=== PATIENT | female | born 1970 | race Hispanic/Latino ===

== ENCOUNTER 2016-07-11 01:24 | Inpatient (IN) | payer MEDICAID ==
[2016-07-11 02:35] LABS: Basophils % (Auto) 0.4 % (0.0-1.8); Eosinophils % (Auto) 0.2 % (0.0-4.3); Hematocrit 43.9 % (30.3-42.9); Hemoglobin 14.7 gm/dl (10.1-14.3); Mean Corpuscular HGB Conc 33 % (30-34); Mean Corpuscular Hemoglobin 30 pg (28-32); Mean Corpuscular Volume 90 fl (79-97); Platelet Count 260 K/mm3 (140-440); Red Blood Count 4.89 M/mm3 (3.65-5.03); Red Cell Distribution Width 12.7 % (13.2-15.2); White Blood Count 14.6 K/mm3 (4.5-11.0)
[2016-07-11 02:48] LABS: INR 1.11 (0.87-1.13)
[2016-07-11 02:49] LABS: Blood Urea Nitrogen 12 mg/dL (7-17); Carbon Dioxide 23 mmol/L (22-30); Glucose 214 mg/dL (65-100); Partial Thromboplastin Time 29.2 Sec. (24.2-36.6); Potassium 4.4 mmol/L (3.6-5.0); Sodium 137 mmol/L (137-145)
[2016-07-11] MEDS ORDERED: MORPHINE IV ONE (02:52)
[2016-07-11] MEDS ORDERED: NACL 0.9% 1000 ML 1,000 ML IV ONE ×2 (02:52→04:08)
[2016-07-11] MEDS ORDERED: ZOFRAN IV ONE (02:52)
[2016-07-11 02:53] LABS: Anion Gap 24 mmol/L
--- NOTE | 2016-07-11 02:53 | Emergency Department Report ---
ED General Adult HPI - General Chief complaint: Chest Pain Stated complaint: LT ARM PAIN Time Seen by Provider: 07/11/16 02:38 Source: patient, RN notes reviewed, old records reviewed Mode of arrival: Ambulatory Limitations: No Limitations - History of Present Illness Initial comments: This is a 46-year-old female, previously unknown to me. Her reading instructor is Dr. Hector. Patient has an extensive past medical history, including heart disease, [place], PCI , diabetes, hypertension, pulmonary embolus, seizure, stroke, lupus. Patient recently admitted to the hospital for chest pain. As per cardiology note, "stable cardiac status. Okay to discharge home from a cardiovascular standpoint's on aspirin, Effient, Zocor, Toprol, losartan, Isordil, Ranexa." Patient reports that she was seen by her reading instructor yesterday. Patient's main complaint today is abdominal pain. It is epigastric, right upper quadrant, radiates to the back. She reports malaise and fatigue. To me she denies chest pain. She missed a low-grade temperature. She does admit to chronic left arm burning and discomfort, which has been present since her previous hospitalization. She has already discussed her left arm discomfort with her primary reading instructor , and her primary reading instructor is following an aware of it. She reports compliance with her medications. Abdominal pain is sharp. Increases with palpation, decreases with rest. She denies alcohol consumption. She denies fatty food ingestion. -: Gradual Location: abdomen Radiation: back Consistency: constant Improves with: rest Worsens with: movement Associated Symptoms: fever/chills, loss of appetite - Related Data Home Medications Medication Instructions Recorded Confirmed Last Taken ALBUTEROL Inhaler [ProAir HFA 2 puff IH QID PRN 03/27/16 07/11/16 03/27/16 Inhaler] Insulin Regular, Human [HumuLIN R] See Protocol SQ ACHS 03/27/16 07/11/16 Aspirin [Aspirin TAB] 81 mg PO QDAY 07/11/16 07/11/16 Unknown Previous Rx's Medication Instructions Recorded Last Taken Type Arformoterol Nebu [Brovana Nebu] 15 mcg IH BIDRT ml 03/28/16 Unknown Rx Budesonide [Pulmicort Respules] 1 mg IH BIDRT #14 nebu 03/28/16 Unknown Rx Fluticasone/Salmeterol [Advair 1 each IH QDAY #1 blst.w.dev 03/28/16 Unknown Rx Diskus 500-50 mcg] Insulin Glargine [Lantus VIAL] 80 unit SUB-Q QHS #30 units 03/28/16 Unknown Rx Ipratropium/Albuter (Nf) 2 puff IH QID #1 inha 03/28/16 Unknown Rx [Combivent Inhaler] Losartan [Cozaar] 50 mg PO QDAY #30 tablet 03/28/16 Unknown Rx Metformin HCl [Glucophage] 1,000 mg PO BID #60 tablet 03/28/16 Unknown Rx Metoprolol Xl [Metoprolol 75 mg PO QDAY #30 tablet 03/28/16 Unknown Rx SUCCINATE ER TAB] Montelukast [Singulair] 10 mg PO QPM tablet 03/28/16 Unknown Rx Pregabalin [Lyrica] 75 mg PO QDAY #30 capsule 03/28/16 Unknown Rx Sertraline [Zoloft] 50 mg PO QDAY #30 tablet 03/28/16 Unknown Rx oxyCODONE /ACETAMINOPHEN [Percocet 1 tab PO Q6H PRN #20 tablet 03/28/16 Unknown Rx 5/325 mg] Atorvastatin Calcium [Lipitor] 40 mg PO QHS #30 tab 07/03/16 Unknown Rx Prasugrel [Effient] 10 mg PO QDAY #30 tablet 07/03/16 Unknown Rx Ranolazine ER [Ranexa ER] 500 mg PO BID #60 tablet 07/03/16 Unknown Rx Allergies Allergy/AdvReac Type Severity Reaction Status Date / Time No Known Allergies Allergy Verified 02/17/16 13:53 ED Review of Systems ROS: Stated complaint: LT ARM PAIN Other details as noted in HPI Constitutional: chills, malaise Eyes: denies: vision change ENT: denies: epistaxis Respiratory: see HPI Cardiovascular: as per HPI Gastrointestinal: abdominal pain Genitourinary: as per HPI Musculoskeletal: as per HPI Skin: as per HPI. denies: lesions Neurological: weakness Psychiatric: anxiety ED Past Medical Hx - Past Medical History Hx Hypertension: Yes Hx CVA: Yes (TIA, stroke 2003) Hx Heart Attack/AMI: Yes (x4) Hx Congestive Heart Failure: No Hx Diabetes: Yes Hx Deep Vein Thrombosis: No Hx Pulmonary Embolism: Yes Hx Liver Disease: Yes (Liver mass (2012)) Hx Renal Disease: (ACUTE RENAL FAILURE) Hx Headaches / Migraines: No Hx Seizures: No Hx Kidney Stones: Yes Hx Asthma: Yes Hx COPD: No Hx Dementia: No Hx HIV: No Additional medical history: HIGH CHOLESTEROL , gullian escalante syndrome, lupus - Surgical History Hx Coronary Stent: Yes Additional Surgical History: RECONSTRUCTIVE BACK SUGERY X3, C SECTION, TUBAL LIGATION - Social History Smoking Status: Former Smoker Substance Use Type: None - Medications Home Medications: Home Medications Medication Instructions Recorded Confirmed Last Taken Type ALBUTEROL Inhaler [ProAir HFA 2 puff IH QID PRN 03/27/16 07/11/16 03/27/16 History Inhaler] Insulin Regular, Human [HumuLIN R] See Protocol SQ ACHS 03/27/16 07/11/16 History Arformoterol Nebu [Brovana Nebu] 15 mcg IH BIDRT ml 03/28/16 07/11/16 Unknown Rx Budesonide [Pulmicort Respules] 1 mg IH BIDRT #14 nebu 03/28/16 07/11/16 Unknown Rx Fluticasone/Salmeterol [Advair 1 each IH QDAY #1 blst.w.dev 03/28/16 07/11/16 Unknown Rx Diskus 500-50 mcg] Insulin Glargine [Lantus VIAL] 80 unit SUB-Q QHS #30 units 03/28/16 07/11/16 Unknown Rx Ipratropium/Albuter (Nf) 2 puff IH QID #1 inha 03/28/16 07/11/16 Unknown Rx [Combivent Inhaler] Losartan [Cozaar] 50 mg PO QDAY #30 tablet 03/28/16 07/11/16 Unknown Rx Metformin HCl [Glucophage] 1,000 mg PO BID #60 tablet 03/28/16 07/11/16 Unknown Rx Metoprolol Xl [Metoprolol 75 mg PO QDAY #30 tablet 03/28/16 07/11/16 Unknown Rx SUCCINATE ER TAB] Montelukast [Singulair] 10 mg PO QPM tablet 03/28/16 07/11/16 Unknown Rx Pregabalin [Lyrica] 75 mg PO QDAY #30 capsule 03/28/16 07/11/16 Unknown Rx Sertraline [Zoloft] 50 mg PO QDAY #30 tablet 03/28/16 07/11/16 Unknown Rx oxyCODONE /ACETAMINOPHEN [Percocet 1 tab PO Q6H PRN #20 tablet 03/28/16 Unknown Rx 5/325 mg] Atorvastatin Calcium [Lipitor] 40 mg PO QHS #30 tab 07/03/16 07/11/16 Unknown Rx Prasugrel [Effient] 10 mg PO QDAY #30 tablet 07/03/16 07/11/16 Unknown Rx Ranolazine ER [Ranexa ER] 500 mg PO BID #60 tablet 07/03/16 07/11/16 Unknown Rx Aspirin [Aspirin TAB] 81 mg PO QDAY 07/11/16 07/11/16 Unknown History ED Physical Exam - General Limitations: No Limitations General appearance: alert, in no apparent distress - Head Head exam: Present: atraumatic, normocephalic - Eye Eye exam: Present: normal appearance, EOMI. Absent: nystagmus - ENT ENT exam: Present: normal exam, normal orophraynx, mucous membranes moist - Neck Neck exam: Present: normal inspection, full ROM. Absent: tenderness, meningismus - Respiratory Respiratory exam: Present: normal lung sounds bilaterally. Absent: respiratory distress, wheezes, rales, rhonchi, stridor, chest wall tenderness - Cardiovascular Cardiovascular Exam: Present: regular rate, normal rhythm, normal heart sounds. Absent: bradycardia, tachycardia, irregular rhythm, systolic murmur, diastolic murmur, rubs, gallop - GI/Abdominal GI/Abdominal exam: Present: soft, tenderness, normal bowel sounds, other (upper quadrant tender, right flank tender, right lower quadrant tender. No rebound, guarding or peritoneal signs.). Absent: distended, guarding, rebound, rigid, pulsatile mass - Extremities Exam Extremities exam: Present: normal inspection, full ROM, normal capillary refill. Absent: tenderness, pedal edema, joint swelling, calf tenderness - Back Exam Back exam: Present: normal inspection, full ROM. Absent: tenderness, CVA tenderness (R), CVA tenderness (L), muscle spasm, paraspinal tenderness, vertebral tenderness - Neurological Exam Neurological exam: Present: alert, oriented X3, other (Extraocular movements intact. Tongue midline. No facial droop. Facial sensation intact to light touch in the V1, V2, V3 distribution bilaterally. 5 and 5 strength in 4 extremities.. Sensation is intact to light touch in 4 extremities.). Absent: motor sensory deficit - Psychiatric Psychiatric exam: Present: anxious - Skin Skin exam: Present: warm, dry, intact, normal color. Absent: rash ED Course Vital Signs 07/11/16 07/11/16 07/11/16 01:53 02:26 02:53 Temperature 99.0 F 99.6 F Pulse Rate 95 H 90 Respiratory 18 21 Rate Blood Pressure 139/89 O2 Sat by Pulse 97 Oximetry 07/11/16 07/11/16 07/11/16 03:00 04:05 05:00 Temperature Pulse Rate 88 93 H 88 Respiratory 21 15 18 Rate Blood Pressure 129/85 129/85 146/90 O2 Sat by Pulse 99 97 97 Oximetry - Reevaluation(s) Reevaluation #1: 07/11/16 03:17 Differential diagnosis: Pneumonia, urinary tract infection, pyelonephritis, intra-abdominal abscess, pulmonary embolus Assessment and plan: 46-year-old female with low-grade temperature, leukocytosis , right-sided abdominal pain and tenderness. Patient reports being catheterized to the right groin. I my direct inspection of the right groin site, did not appear to be any redness, pus, streaking or cellulitis. There is no obvious hematoma. During this portion of her physical exam, I am escorted by nurse Kriss Woody. Patient will be treated symptomatically. Has a low-grade temperature rectally to 99.6. CAT scan of the chest, abdomen/pelvis is pending. I do not think that her symptoms are related to acute coronary syndrome. Her left arm burning is chronic, and she was seen by her reading instructor yesterday for this. We will reassess once her CAT scan has resulted. Reevaluation #2: 07/11/16 05:49 CAT scan of the chest was negative for pulmonary embolus. CAT scan of the abdomen and pelvis suggested pyelonephritis without abscess. Given patient's tenderness, leukocytosis, elevated lactic acid level, medical comorbidities, she will be admitted for pain control, IV antibiotics. The case is discussed with Hospital physician, Dr. Longo, who accepts the patient to his service. ED Medical Decision Making - Lab Data Result diagrams: 07/11/16 02:13 07/11/16 02:13 Vital Signs 07/11/16 07/11/16 01:53 02:53 Temperature 99.0 F 99.6 F Pulse Rate 95 H Respiratory 18 Rate Blood Pressure 139/89 O2 Sat by Pulse 97 Oximetry Lab Results 07/11/16 07/11/16 07/11/16 Range/Units 02:13 02:13 02:13 WBC 14.6 H (4.5-11.0) K/mm3 RBC 4.89 (3.65-5.03) M/mm3 Hgb 14.7 H (10.1-14.3) gm/dl Hct 43.9 H (30.3-42.9) % MCV 90 (79-97) fl MCH 30 (28-32) pg MCHC 33 (30-34) % RDW 12.7 L (13.2-15.2) % Plt Count 260 (140-440) K/mm3 Lymph % (Auto) 11.3 L (13.4-35.0) % [place] % (Auto) 7.2 (0.0-7.3) % Eos % (Auto) 0.2 (0.0-4.3) % Baso % (Auto) 0.4 (0.0-1.8) % Lymph # 1.6 (1.2-5.4) K/mm3 [place] # 1.1 H (0.0-0.8) K/mm3 Eos # 0.0 (0.0-0.4) K/mm3 Baso # 0.1 (0.0-0.1) K/mm3 Seg Neutrophils % 80.9 H (40.0-70.0) % Seg Neutrophils # 11.8 H (1.8-7.7) K/mm3 PT 14.2 (12.2-14.9) Sec. INR 1.11 (0.87-1.13) APTT 29.2 (24.2-36.6) Sec. Sodium 137 (137-145) mmol/L Potassium 4.4 (3.6-5.0) mmol/L Chloride 94.0 L (98-107) mmol/L Carbon Dioxide 23 (22-30) mmol/L Anion Gap 24 mmol/L BUN 12 (7-17) mg/dL Creatinine 0.6 L (0.7-1.2) mg/dL Estimated GFR > 60 ml/min BUN/Creatinine Ratio 20.00 % Glucose 214 H (65-100) mg/dL Calcium 10.0 (8.4-10.2) mg/dL Troponin T < 0.010 (0.00-0.029) ng/mL - EKG Data 07/11/16 03:18 Normal sinus, 88 bpm, normal axis, normal intervals, borderline incomplete right bundle branch block, borderline ST depression in the lateral leads, T- wave inversions in the inferior leads, abnormal EKG, not morphologically consistent with STEMI, nonspecific changes appear to have taken place in the lateral leads compared to old EKG. - Radiology Data Radiology results: report reviewed, image reviewed Chest x-ray negative. CAT scan of the chest negative for pulmonary embolus. CAT scan of the abdomen and pelvis suggest pyelonephritis. Critical care attestation.: If time is entered above; I have spent that time in minutes in the direct care of this critically ill patient, excluding procedure time. ED Disposition Clinical Impression: Pyelonephritis Sepsis Qualifiers: Sepsis type: sepsis due to unspecified organism Qualified Code(s): A41.9 - Sepsis, unspecified organism Disposition: OP ADMITTED IP TO THIS HOSP Is pt being admited?: Yes Does the pt Need Aspirin: Yes Condition: Good
[2016-07-11] MEDS ORDERED: NACL ONE (03:08)
[2016-07-11 03:45] LABS: Alanine Aminotransferase 14 units/L (7-56); Albumin 4.3 g/dL (3.9-5); Albumin/Globulin Ratio 1.3 %; Alkaline Phosphatase 66 units/L (35-129); Bilirubin,Total 0.9 mg/dL (0.1-1.2); Lipase 18 units/L (13-60); Total Protein 7.6 g/dL (6.3-8.2)
[2016-07-11 03:51] LABS: Bacteria,Urine 2+ /HPF (Negative); Bilirubin,Urine NEG (Negative); Blood,Urine MOD (Negative); Ketones,Urine NEG (Negative); Leukocyte Esterase,Urine LG (Negative); Mucus,Urine FEW /HPF; Nitrite,Urine NEG (Negative); Urobilinogen,Urine < 2.0 mg/dL (<2.0)
[2016-07-11 03:52] LABS: Bilirubin,Direct < 0.2 mg/dL (0-0.2); Bilirubin,Indirect 0.7 mg/dL; WBC,Urine > 182.0 /HPF (0.0-6.0)
--- NOTE | 2016-07-11 04:02 | XRay Report ---
FINAL REPORT EXAM: CT ANGIO CHEST HISTORY: ruq pain low grade temp COMPARISON: CT of the chest February 2012. TECHNIQUE: Contiguous axial images were obtained. Additional sagittal and coronal reformatted images were obtained. Administration of IV contrast given per institution protocol. Images submitted for interpretation. 100 cc Omnipaque 350. Max intensity projection images obtained. FINDINGS: Heart normal in size. Moderate coronary artery calcifications. Thoracic aorta normal in caliber. No dissection. No pulmonary embolus. No pathologically enlarged intrathoracic or axillary lymph nodes. Mild atelectasis at the lung bases. No dense consolidation or pleural effusion. Tracheobronchial tree is patent. Stable right hepatic lobe hemangioma measuring 3.3 x 3.3 centimeters. Mild degenerative changes of the thoracic spine. IMPRESSION: No pulmonary embolus. No focal consolidation or pleural effusion. Stable hemangioma at the right hepatic dome.
[2016-07-11] MEDS ORDERED: ROCEPHIN/NS 1 GM/50 ML 50 ML IV ONE (04:08)
--- NOTE | 2016-07-11 05:21 | Cat Scan Report ---
FINAL REPORT PROCEDURE: CT ABDOMEN PELVIS W CON TECHNIQUE: Computerized axial tomography of the abdomen and pelvis was performed after the IV injection of iodinated nonionic contrast. Oral contrast was not given HISTORY: Right upper quadrant abdominal pain with low grade temp COMPARISON: Prior abdomen and pelvic CT scan of March 09 2012 FINDINGS: Visualized lower thorax: There is mild atelectasis in both lung bases.. Liver: There is a 3.5 centimeter hypodense lesion in the upper right lobe of the liver. This has peripheral nodular enhancement and almost fills in completely on the delayed images. Therefore this is most likely a cavernous hemangioma. It also appears unchanged from the older scan March 09, 2012. There is a 2nd 0.8 centimeter densely enhancing small focus in the anterior left lobe of the liver. This also fills in on delayed imaging and is most likely 2nd small hemangioma. I believe this was also present previously. Spleen: Heterogenous appearance on initial phase only is likely due to contrast flux. Gallbladder and biliary system: Normal. Pancreas: Normal. Adrenals: Normal. Kidneys: There is a 3.0 centimeter cyst in the left kidney similar to prior exam. The wall of both the left and right renal pelvis in the wall of both ureters demonstrate very mild enhancement. This is nonspecific and could be within range of normal variation but could also be related to the findings in the bladder described below. GI tract: The bowel appears unremarkable. The appendix is seen and appears normal.. Lymph nodes and mesentery: Normal. Vasculature: Normal. Bladder: On the initial phase only there is apparent mild urinary bladder wall thickening seen diffusely throughout and mild wall enhancement. This is nonspecific but could indicate a mild cystitis.. Reproductive organs: The uterus shows heterogenous enhancement of uncertain significance. It appears more homogeneous on delayed imaging although it is not completely seen on the delayed scan. Peritoneum: No free fluid. Musculoskeletal structures: Surgically placed metallic hardware in lower lumbar spine from L3-S1 appears similar to prior exam. Other: None. IMPRESSION: 1. There is mild diffuse urinary bladder wall thickening which shows mild enhancement. This is nonspecific but could indicate a mild cystitis. 2. Mild wall enhancement of the mid and upper ureters and mild wall enhancement of the left and right renal pelvis. This can sometimes be seen as a normal variant. However if the patient does have cystitis or UTI this could also be related to that. 3. Left renal cyst, unchanged. 4. There is a 3.5 centimeter cavernous hemangioma in the right liver, unchanged from prior exam. There is a probable 2nd small 0.8 centimeter hemangioma in the left liver, also unchanged. 5. Surgically placed metallic hardware in lower lumbar spine. 6. Chest CT scan performed at same time as this study is dictated separately.
--- NOTE | 2016-07-11 05:23 | History and Physical Report ---
History of Present Illness History of present illness: 46 YO Female with HTN, CVA,DM,PE, Asthma, HLD, Lupus, GBS, CAD S/P Stent Placement, presents to ED for evaluation. Pt states that she has been experiencing abdominal pain for the past for the past 1 day with persistent symptoms over that time. Pt states that pain is 4/10, epigastric, radiating to back. She reports malaise and fatigue. Pt denies fever, chills, CP, Palpitations, NVD, or recent ill contacts. Past History Past Medical History: CAD, diabetes, hypertension, other (lupus,GBS,asthma) Past Surgical History: , Other (back surgery, tubal ligation) Social history: single, lives with family. denies: smoking, alcohol abuse, prescription drug abuse Family history: hypertension Medications and Allergies Allergies Allergy/AdvReac Type Severity Reaction Status Date / Time No Known Allergies Allergy Verified 02/17/16 13:53 Home Medications Medication Instructions Recorded Confirmed Last Taken Type ALBUTEROL Inhaler [ProAir HFA 2 puff IH QID PRN 03/27/16 07/11/16 03/27/16 History Inhaler] Insulin Regular, Human [HumuLIN R] See Protocol SQ ACHS 03/27/16 07/11/16 History Arformoterol Nebu [Brovana Nebu] 15 mcg IH BIDRT ml 03/28/16 07/11/16 Unknown Rx Budesonide [Pulmicort Respules] 1 mg IH BIDRT #14 nebu 03/28/16 07/11/16 Unknown Rx Fluticasone/Salmeterol [Advair 1 each IH QDAY #1 blst.w.dev 03/28/16 07/11/16 Unknown Rx Diskus 500-50 mcg] Insulin Glargine [Lantus VIAL] 80 unit SUB-Q QHS #30 units 03/28/16 07/11/16 Unknown Rx Ipratropium/Albuter (Nf) 2 puff IH QID #1 inha 03/28/16 07/11/16 Unknown Rx [Combivent Inhaler] Losartan [Cozaar] 50 mg PO QDAY #30 tablet 03/28/16 07/11/16 Unknown Rx Metformin HCl [Glucophage] 1,000 mg PO BID #60 tablet 03/28/16 07/11/16 Unknown Rx Metoprolol Xl [Metoprolol 75 mg PO QDAY #30 tablet 03/28/16 07/11/16 Unknown Rx SUCCINATE ER TAB] Montelukast [Singulair] 10 mg PO QPM tablet 03/28/16 07/11/16 Unknown Rx Pregabalin [Lyrica] 75 mg PO QDAY #30 capsule 03/28/16 07/11/16 Unknown Rx Sertraline [Zoloft] 50 mg PO QDAY #30 tablet 03/28/16 07/11/16 Unknown Rx oxyCODONE /ACETAMINOPHEN [Percocet 1 tab PO Q6H PRN #20 tablet 03/28/16 Unknown Rx 5/325 mg] Atorvastatin Calcium [Lipitor] 40 mg PO QHS #30 tab 07/03/16 07/11/16 Unknown Rx Prasugrel [Effient] 10 mg PO QDAY #30 tablet 07/03/16 07/11/16 Unknown Rx Ranolazine ER [Ranexa ER] 500 mg PO BID #60 tablet 07/03/16 07/11/16 Unknown Rx Aspirin [Aspirin TAB] 81 mg PO QDAY 07/11/16 07/11/16 Unknown History Review of Systems All systems: negative Gastrointestinal: abdominal pain Exam - Constitutional Vitals: Temp Pulse Resp BP Pulse Ox 99.6 F 88 18 146/90 97 07/11/16 02:53 07/11/16 05:00 07/11/16 05:00 07/11/16 05:00 07/11/16 05:00 General appearance: Present: no acute distress, well-nourished - EENT Eyes: Present: PERRL ENT: hearing intact, clear oral mucosa - Neck Neck: Present: supple, normal ROM - Respiratory Respiratory effort: normal Respiratory: bilateral: CTA - Cardiovascular Heart Sounds: Present: S1 & S2. Absent: rub, click - Extremities Extremities: pulses symmetrical, No edema Peripheral Pulses: within normal limits - Abdominal General gastrointestinal: Present: soft, non-tender, non-distended, normal bowel sounds Female genitourinary: Present: normal - Integumentary Integumentary: Present: clear, warm, dry - Musculoskeletal Musculoskeletal: gait normal, strength equal bilaterally - Psychiatric Psychiatric: appropriate mood/affect, intact judgment & insight - Neurologic Neurologic: CNII-XII intact, moves all extremities Results - Labs CBC & Chem 7: 07/11/16 02:13 07/11/16 02:13 Labs: Abnormal lab results 07/11/16 07/11/16 07/11/16 Range/Units 02:13 02:13 03:02 WBC 14.6 H (4.5-11.0) K/mm3 Hgb 14.7 H (10.1-14.3) gm/dl Hct 43.9 H (30.3-42.9) % RDW 12.7 L (13.2-15.2) % Lymph % (Auto) 11.3 L (13.4-35.0) % [place] # 1.1 H (0.0-0.8) K/mm3 Seg Neutrophils % 80.9 H (40.0-70.0) % Seg Neutrophils # 11.8 H (1.8-7.7) K/mm3 Chloride 94.0 L (98-107) mmol/L Creatinine 0.6 L (0.7-1.2) mg/dL Glucose 214 H (65-100) mg/dL Lactic Acid (0.7-2.0) mmol/L Urine WBC (Auto) > 182.0 H (0.0-6.0) /HPF 07/11/16 Range/Units 03:02 WBC (4.5-11.0) K/mm3 Hgb (10.1-14.3) gm/dl Hct (30.3-42.9) % RDW (13.2-15.2) % Lymph % (Auto) (13.4-35.0) % [place] # (0.0-0.8) K/mm3 Seg Neutrophils % (40.0-70.0) % Seg Neutrophils # (1.8-7.7) K/mm3 Chloride (98-107) mmol/L Creatinine (0.7-1.2) mg/dL Glucose (65-100) mg/dL Lactic Acid 3.6 H* (0.7-2.0) mmol/L Urine WBC (Auto) (0.0-6.0) /HPF Assessment and Plan - Patient Problems (1) CAD (coronary artery disease) Current Visit: No Status: Chronic Qualifiers: Coronary Disease-Associated Artery/Lesion type: [place] artery (2) Hypertension Current Visit: No Status: Chronic Qualifiers: Hypertension type: essential hypertension Qualified Code(s): I10 - Essential (primary) hypertension (3) Cystitis Current Visit: Yes Status: Acute Plan to address problem: IV abx, IVF, supportive care, pain control, (4) Abdominal pain Current Visit: Yes Status: Acute Plan to address problem: secondary to cystitis, continue current care. (5) Lupus Current Visit: Yes Status: Chronic Plan to address problem: No active disease at this time. (6) DVT prophylaxis Current Visit: No Status: Acute
[2016-07-11] MEDS ORDERED: MILK OF MAGNESIA PO PRN (05:26)
[2016-07-11] MEDS ORDERED: DULCOLAX PR PRN (05:26)
[2016-07-11] MEDS ORDERED: ZOFRAN IV PRN (05:26)
[2016-07-11] MEDS: LEVAQUIN 500MG/100ML 100 ML IV SCH (06:08)
--- NOTE | 2016-07-11 06:25 | Admit Criteria Form ---
Admission Criteria Documentation: SEPSIS and OTHER FEBRILE ILLNESS, W/O FOCAL INFECTION Clinical Indications for Admission to Inpatient Care ( Place 'X' for any and all applicable criteria): Admission is indicated for ANY ONE of the following (1)(2)(3)(4): [ ] I. Bacteremia [X ]II. Suspected or identified specific infection requiring hospitalization (eg, meningitis, endocarditis) [ ]III. Hemodynamic instability [ ]IV. Altered mental status [ ]V. Failure or unavailability of outpatient antimicrobial treatment [ ]. Hypoxemia [ ]VII. Seizures [ ]VIII. High-risk febrile neutropenia [ ]IX. Need for parenteral antibiotic in patient who is likely to abuse vascular access device (eg, injection drug user) [A](7) [ ]X. Temperature greater than 104.9 degrees F (40.5 degrees C) (oral) [X ]XI. Inpatient admission required rather than observation care because of ANY ONE of the following: [X ]1) Specific infection identified that is too severe for outpatient treatment or observation care trial [ ]2) Metabolic disorder (eg, hypoglycemia, hyperglycemia, metabolic acidosis) that is severe or persistent [ ]3) Temperature greater than 103.1 degrees F (39.5 degrees C) ( oral) that is not responsive to observation care treatment [ ]4) IV fluid to replace significant ongoing (eg, for over 24 hours) losses (> 3 L/m2 per day) [ ]5) Supplemental oxygen or respiratory treatments for over 24 hours that is performable only in acute inpatient setting [ ]6) Parenteral nutrition regimen need that must be implemented on inpatient basis [ ]7) Strict or protective (eg, laminar flow) isolation [ ]8) Other condition, treatment or monitoring requiring inpatient admission Extended stay beyond goal length of stay may be needed for(1)(3) [ ]a) Sepsis or septic shock(22) [ ]b) Positive blood cultures [ ]c) Insufficient oral intake [ ]d) High-risk febrile neutropenia(29)(30) [ ]e) Continued fever and clinical instability [ ]f) Clinically active comorbid illness (e.g,heart failure, renal failure , diabetes) The original [facility] [employer] content created by Sarah Oshea has been revised. The portions of the content which have been revised are identified through the use of italic text or in bold, and [email or web address] has neither reviewed nor approved the modified material. All other unmodified content is copyright [facility]. Please see references footnoted in the original [facility] edition 2016 Admission Criteria Met: Yes
[2016-07-11] MEDS ORDERED: NORCO 5/325 PO ONE (07:01)
[2016-07-11] MEDS: BABY ASPIRIN PO SCH (11:46)
[2016-07-11] MEDS: TYLENOL PO PRN ×3 (12:10→22:43)
[2016-07-11] MEDS: EFFIENT PO SCH (18:49)
[2016-07-11] MEDS: SINGULAIR PO SCH (20:00)
[2016-07-11] MEDS ORDERED: INSULIN GLARGINE 80 UNIT SUB-Q SCH (22:00)
[2016-07-11] MEDS: BROVANA NEBU IH SCH (22:27)
[2016-07-11] MEDS: PULMICORT IH SCH (22:27)
[2016-07-11] MEDS: LEVEMIR SUB-Q SCH (22:45)
[2016-07-11] MEDS: RANEXA ER PO SCH (22:45)
[2016-07-12] MEDS: BROVANA NEBU IH SCH ×2 (08:29→19:41)
[2016-07-12] MEDS: PULMICORT IH SCH ×2 (08:29→19:41)
[2016-07-12] MEDS ORDERED: SALMETEROL IH SCH (10:00)
[2016-07-12] MEDS ORDERED: EFFIENT PO SCH (10:00)
[2016-07-12] MEDS ORDERED: FLUTICASONE IH SCH (10:00)
[2016-07-12] MEDS: LYRICA PO SCH (10:32)
[2016-07-12] MEDS: RANEXA ER PO SCH ×2 (10:32→21:15)
[2016-07-12] MEDS: BABY ASPIRIN PO SCH (10:33)
[2016-07-12] MEDS: LEVAQUIN 500MG/100ML 100 ML IV SCH (10:33)
[2016-07-12] MEDS: ZOLOFT PO SCH (10:33)
[2016-07-12] MEDS: EFFIENT PO SCH (11:08)
[2016-07-12] MEDS: COZAAR PO SCH (11:08)
[2016-07-12] MEDS: TOPROL XL PO SCH (11:33)
[2016-07-12] MEDS: TYLENOL PO PRN (16:58)
[2016-07-12] MEDS: SINGULAIR PO SCH ×2 (17:00→17:30)
--- NOTE | 2016-07-12 19:27 | Progress Note ---
Assessment and Plan Assessment and plan: 1. Sepsis Secondary to UTI Received IV fluids Continue antibiotic 2. UTI/cystitis UA suggestive of UTI; urine culture ordered, but not obtained (patient reasons) CT abdomen showing bladder wall thickening On antibiotic 3. CAD Status post PCI with stent placement On beta yg, CHAYO inhibitor, Ranexa, dual antiplatelet therapy, statin 4. HTN BP controlled on beta yg, CHAYO inhibitor 5. DM On long-acting insulin Accu-Cheks and SSI to assess insulin requirements 6. Hyperlipidemia On statin 7. Lupus Not on treatment 8. Asthma Continue Singulair, inhaled bronchodilators 9. History of PE CTA chest on admission negative for PE 10. Psychiatric disorder/chronic pain On Zoloft and Lyrica 11. DVT prophylaxis History Interval history: low grade fever in am patient verbally aggressive, not answering questions; no specific reason; also , she has been very rude her nurse the whole day Hospitalist Physical - Constitutional Vitals: Temp Pulse Resp BP Pulse Ox 100.2 F H 96 H 18 106/62 95 07/12/16 08:00 07/12/16 08:29 07/12/16 08:29 07/12/16 08:00 07/12/16 08:32 General appearance: Present: no acute distress, well-nourished - EENT Eyes: Present: PERRL, EOM intact. Absent: scleral icterus, conjunctival injection - Neck Neck: Present: supple, normal ROM. Absent: masses or JVD - Respiratory Respiratory effort: normal Respiratory: bilateral: CTA, negative: rales, rhonchi, wheezing - Cardiovascular Rhythm: regular Heart Sounds: Present: S1 & S2. Absent: systolic murmur - Extremities Extremities: no ischemia - Abdominal General gastrointestinal: soft, non-tender, non-distended, normal bowel sounds - Integumentary Integumentary: Present: warm, dry. Absent: jaundice, rash - Psychiatric Psychiatric: other (rude, verbally aggressive) - Neurologic Neurologic: CNII-XII intact, no focal deficits Results - Labs CBC & Chem 7: 07/11/16 02:13 07/11/16 02:13 Labs: Laboratory Last Values WBC 14.6 K/mm3 (4.5-11.0) H 07/11/16 02:13 RBC 4.89 M/mm3 (3.65-5.03) 07/11/16 02:13 Hgb 14.7 gm/dl (10.1-14.3) H 07/11/16 02:13 Hct 43.9 % (30.3-42.9) H 07/11/16 02:13 MCV 90 fl (79-97) 07/11/16 02:13 MCH 30 pg (28-32) 07/11/16 02:13 MCHC 33 % (30-34) 07/11/16 02:13 RDW 12.7 % (13.2-15.2) L 07/11/16 02:13 Plt Count 260 K/mm3 (140-440) 07/11/16 02:13 Lymph % (Auto) 11.3 % (13.4-35.0) L 07/11/16 02:13 [place] % (Auto) 7.2 % (0.0-7.3) 07/11/16 02:13 Eos % (Auto) 0.2 % (0.0-4.3) 07/11/16 02:13 Baso % (Auto) 0.4 % (0.0-1.8) 07/11/16 02:13 Lymph # 1.6 K/mm3 (1.2-5.4) 07/11/16 02:13 [place] # 1.1 K/mm3 (0.0-0.8) H 07/11/16 02:13 Eos # 0.0 K/mm3 (0.0-0.4) 07/11/16 02:13 Baso # 0.1 K/mm3 (0.0-0.1) 07/11/16 02:13 Seg Neutrophils % 80.9 % (40.0-70.0) H 07/11/16 02:13 Seg Neutrophils # 11.8 K/mm3 (1.8-7.7) H 07/11/16 02:13 PT 14.2 Sec. (12.2-14.9) 07/11/16 02:13 INR 1.11 (0.87-1.13) 07/11/16 02:13 APTT 29.2 Sec. (24.2-36.6) 07/11/16 02:13 Sodium 137 mmol/L (137-145) 07/11/16 02:13 Potassium 4.4 mmol/L (3.6-5.0) 07/11/16 02:13 Chloride 94.0 mmol/L (98-107) L 07/11/16 02:13 Carbon Dioxide 23 mmol/L (22-30) 07/11/16 02:13 Anion Gap 24 mmol/L 07/11/16 02:13 BUN 12 mg/dL (7-17) 07/11/16 02:13 Creatinine 0.6 mg/dL (0.7-1.2) L 07/11/16 02:13 Estimated GFR > 60 ml/min 07/11/16 02:13 BUN/Creatinine Ratio 20.00 % 07/11/16 02:13 Glucose 214 mg/dL (65-100) H 07/11/16 02:13 POC Glucose 259 (70-105) H 07/12/16 16:59 Lactic Acid 2.7 mmol/L (0.7-2.0) H* 07/11/16 05:59 Calcium 10.0 mg/dL (8.4-10.2) 07/11/16 02:13 Total Bilirubin 0.9 mg/dL (0.1-1.2) 07/11/16 03:02 Direct Bilirubin < 0.2 mg/dL (0-0.2) 07/11/16 03:02 Indirect Bilirubin 0.7 mg/dL 07/11/16 03:02 AST 14 units/L (5-40) 07/11/16 03:02 ALT 14 units/L (7-56) 07/11/16 03:02 Alkaline Phosphatase 66 units/L (35-129) 07/11/16 03:02 Troponin T < 0.010 ng/mL (0.00-0.029) 07/11/16 07:56 Total Protein 7.6 g/dL (6.3-8.2) 07/11/16 03:02 Albumin 4.3 g/dL (3.9-5) 07/11/16 03:02 Albumin/Globulin Ratio 1.3 % 07/11/16 03:02 Lipase 18 units/L (13-60) 07/11/16 03:02 Urine Color Yellow (Yellow) 07/11/16 03:02 Urine Turbidity Cloudy (Clear) 07/11/16 03:02 Urine pH 5.0 (5.0-7.0) 07/11/16 03:02 Ur Specific [place] 1.015 (1.003-1.030) 07/11/16 03:02 Urine Protein 30 mg/dl mg/dL (Negative) 07/11/16 03:02 Urine Glucose (UA) Neg mg/dL (Negative) 07/11/16 03:02 Urine Ketones Neg mg/dL (Negative) 07/11/16 03:02 Urine Blood Mod (Negative) 07/11/16 03:02 Urine Nitrite Neg (Negative) 07/11/16 03:02 Urine Bilirubin Neg (Negative) 07/11/16 03:02 Urine Urobilinogen < 2.0 mg/dL (<2.0) 07/11/16 03:02 Ur Leukocyte Esterase Lg (Negative) 07/11/16 03:02 Urine WBC (Auto) > 182.0 /HPF (0.0-6.0) H 07/11/16 03:02 Urine RBC (Auto) 10.0 /HPF (0.0-6.0) 07/11/16 03:02 U Epithel Cells (Auto) 3.0 /HPF (0-13.0) 07/11/16 03:02 Urine Bacteria (Auto) 2+ /HPF (Negative) 07/11/16 03:02 Urine Mucus Few /HPF 07/11/16 03:02 - Imaging and Cardiology EKG: image reviewed (no acute findings) CT scan - abdomen: report reviewed (liver hemangiomas, left renal cyst, bladder wall thickening) CT scan - chest: report reviewed (CTA - no PE)
[2016-07-12] MEDS: NOVOLOG SUB-Q SCH (21:15)
[2016-07-12] MEDS: LEVEMIR SUB-Q SCH (21:16)
[2016-07-13] MEDS ORDERED: CORDARONE PO ONE (04:31)
[2016-07-13] MEDS: PULMICORT IH SCH ×2 (07:19→19:44)
[2016-07-13] MEDS: BROVANA NEBU IH SCH ×2 (07:19→19:44)
[2016-07-13] MEDS: NOVOLOG SUB-Q SCH ×4 (08:05→21:56)
[2016-07-13] MEDS: RANEXA ER PO SCH ×2 (10:18→21:55)
[2016-07-13] MEDS: ZOLOFT PO SCH (10:19)
[2016-07-13] MEDS: BABY ASPIRIN PO SCH (10:19)
[2016-07-13] MEDS: COZAAR PO SCH (10:19)
[2016-07-13] MEDS: LYRICA PO SCH (10:20)
[2016-07-13] MEDS: EFFIENT PO SCH (10:21)
[2016-07-13] MEDS: TOPROL XL PO SCH (10:28)
[2016-07-13] MEDS: LEVAQUIN 500MG/100ML 100 ML IV SCH (10:31)
--- NOTE | 2016-07-13 18:08 | Progress Note ---
Assessment and Plan Assessment and plan: 1. Sepsis Secondary to UTI Received IV fluids Continue antibiotic 2. UTI/cystitis UA suggestive of UTI; urine culture obtained, results pending CT abdomen showing bladder wall thickening On Levofloxacin 3. CAD Status post recent PCI with stent placement (Jun 2016) On beta yg, CHAYO inhibitor, Ranexa, dual antiplatelet therapy, statin 4. HTN BP controlled on beta yg, CHAYO inhibitor 5. DM On long-acting insulin Accu-Cheks and SSI to assess insulin requirements 6. Hyperlipidemia On statin 7. Lupus Not on treatment 8. Asthma Continue Singulair, inhaled bronchodilators 9. History of PE CTA chest on admission negative for PE 10. Psychiatric disorder/chronic pain On Zoloft and Lyrica 11. DVT prophylaxis History Interval history: juancarlos better mood today, c/o mild dysuria, concerned for possible yeast infection Hospitalist Physical - Constitutional Vitals: Temp Pulse Resp BP Pulse Ox 98.7 F 88 20 134/85 95 07/13/16 15:00 07/13/16 15:00 07/13/16 15:00 07/13/16 15:00 07/13/16 15:00 General appearance: Present: no acute distress, well-nourished - EENT Eyes: Present: PERRL, EOM intact. Absent: scleral icterus, conjunctival injection - Neck Neck: Present: supple, normal ROM. Absent: masses or JVD - Respiratory Respiratory effort: normal Respiratory: bilateral: CTA, negative: rales, rhonchi, wheezing - Cardiovascular Rhythm: regular Heart Sounds: Present: S1 & S2. Absent: systolic murmur - Extremities Extremities: no ischemia - Abdominal General gastrointestinal: soft, non-tender, non-distended, normal bowel sounds - Integumentary Integumentary: Present: warm, dry. Absent: jaundice, rash - Psychiatric Psychiatric: cooperative - Neurologic Neurologic: CNII-XII intact, no focal deficits Results - Labs CBC & Chem 7: 07/11/16 02:13 07/11/16 02:13 Labs: Laboratory Last Values WBC 14.6 K/mm3 (4.5-11.0) H 07/11/16 02:13 RBC 4.89 M/mm3 (3.65-5.03) 07/11/16 02:13 Hgb 14.7 gm/dl (10.1-14.3) H 07/11/16 02:13 Hct 43.9 % (30.3-42.9) H 07/11/16 02:13 MCV 90 fl (79-97) 07/11/16 02:13 MCH 30 pg (28-32) 07/11/16 02:13 MCHC 33 % (30-34) 07/11/16 02:13 RDW 12.7 % (13.2-15.2) L 07/11/16 02:13 Plt Count 260 K/mm3 (140-440) 07/11/16 02:13 Lymph % (Auto) 11.3 % (13.4-35.0) L 07/11/16 02:13 [place] % (Auto) 7.2 % (0.0-7.3) 07/11/16 02:13 Eos % (Auto) 0.2 % (0.0-4.3) 07/11/16 02:13 Baso % (Auto) 0.4 % (0.0-1.8) 07/11/16 02:13 Lymph # 1.6 K/mm3 (1.2-5.4) 07/11/16 02:13 [place] # 1.1 K/mm3 (0.0-0.8) H 07/11/16 02:13 Eos # 0.0 K/mm3 (0.0-0.4) 07/11/16 02:13 Baso # 0.1 K/mm3 (0.0-0.1) 07/11/16 02:13 Seg Neutrophils % 80.9 % (40.0-70.0) H 07/11/16 02:13 Seg Neutrophils # 11.8 K/mm3 (1.8-7.7) H 07/11/16 02:13 PT 14.2 Sec. (12.2-14.9) 07/11/16 02:13 INR 1.11 (0.87-1.13) 07/11/16 02:13 APTT 29.2 Sec. (24.2-36.6) 07/11/16 02:13 Sodium 137 mmol/L (137-145) 07/11/16 02:13 Potassium 4.4 mmol/L (3.6-5.0) 07/11/16 02:13 Chloride 94.0 mmol/L (98-107) L 07/11/16 02:13 Carbon Dioxide 23 mmol/L (22-30) 07/11/16 02:13 Anion Gap 24 mmol/L 07/11/16 02:13 BUN 12 mg/dL (7-17) 07/11/16 02:13 Creatinine 0.6 mg/dL (0.7-1.2) L 07/11/16 02:13 Estimated GFR > 60 ml/min 07/11/16 02:13 BUN/Creatinine Ratio 20.00 % 07/11/16 02:13 Glucose 214 mg/dL (65-100) H 07/11/16 02:13 POC Glucose 205 (70-105) H 07/13/16 17:29 Lactic Acid 2.7 mmol/L (0.7-2.0) H* 07/11/16 05:59 Calcium 10.0 mg/dL (8.4-10.2) 07/11/16 02:13 Total Bilirubin 0.9 mg/dL (0.1-1.2) 07/11/16 03:02 Direct Bilirubin < 0.2 mg/dL (0-0.2) 07/11/16 03:02 Indirect Bilirubin 0.7 mg/dL 07/11/16 03:02 AST 14 units/L (5-40) 07/11/16 03:02 ALT 14 units/L (7-56) 07/11/16 03:02 Alkaline Phosphatase 66 units/L (35-129) 07/11/16 03:02 Troponin T < 0.010 ng/mL (0.00-0.029) 07/11/16 07:56 Total Protein 7.6 g/dL (6.3-8.2) 07/11/16 03:02 Albumin 4.3 g/dL (3.9-5) 07/11/16 03:02 Albumin/Globulin Ratio 1.3 % 07/11/16 03:02 Lipase 18 units/L (13-60) 07/11/16 03:02 Urine Color Yellow (Yellow) 07/11/16 03:02 Urine Turbidity Cloudy (Clear) 07/11/16 03:02 Urine pH 5.0 (5.0-7.0) 07/11/16 03:02 Ur Specific [place] 1.015 (1.003-1.030) 07/11/16 03:02 Urine Protein 30 mg/dl mg/dL (Negative) 07/11/16 03:02 Urine Glucose (UA) Neg mg/dL (Negative) 07/11/16 03:02 Urine Ketones Neg mg/dL (Negative) 07/11/16 03:02 Urine Blood Mod (Negative) 07/11/16 03:02 Urine Nitrite Neg (Negative) 07/11/16 03:02 Urine Bilirubin Neg (Negative) 07/11/16 03:02 Urine Urobilinogen < 2.0 mg/dL (<2.0) 07/11/16 03:02 Ur Leukocyte Esterase Lg (Negative) 07/11/16 03:02 Urine WBC (Auto) > 182.0 /HPF (0.0-6.0) H 07/11/16 03:02 Urine RBC (Auto) 10.0 /HPF (0.0-6.0) 07/11/16 03:02 U Epithel Cells (Auto) 3.0 /HPF (0-13.0) 07/11/16 03:02 Urine Bacteria (Auto) 2+ /HPF (Negative) 07/11/16 03:02 Urine Mucus Few /HPF 07/11/16 03:02
[2016-07-13] MEDS: SINGULAIR PO SCH (18:17)
[2016-07-13] MEDS: LEVEMIR SUB-Q SCH (21:57)
[2016-07-14] MEDS: NOVOLOG SUB-Q SCH ×4 (08:39→22:05)
[2016-07-14] MEDS: BROVANA NEBU IH SCH ×2 (08:53→19:54)
[2016-07-14] MEDS: PULMICORT IH SCH ×2 (08:53→19:54)
[2016-07-14] MEDS: LYRICA PO SCH (11:49)
[2016-07-14] MEDS: LEVAQUIN 500MG/100ML 100 ML IV SCH (11:49)
[2016-07-14] MEDS: COZAAR PO SCH (11:50)
[2016-07-14] MEDS: TOPROL XL PO SCH (11:50)
[2016-07-14] MEDS: ZOLOFT PO SCH (11:50)
[2016-07-14] MEDS: BABY ASPIRIN PO SCH (11:51)
[2016-07-14] MEDS: RANEXA ER PO SCH ×2 (11:51→21:55)
[2016-07-14] MEDS: EFFIENT PO SCH (11:51)
[2016-07-14] MEDS: SINGULAIR PO SCH (17:50)
--- NOTE | 2016-07-14 18:31 | Progress Note ---
Assessment and Plan Assessment and plan: 1. Sepsis Secondary to UTI Received IV fluids Continue antibiotic 2. UTI/cystitis UA suggestive of UTI; urine culture obtained, showing GNR, awaiting speciation CT abdomen showing bladder wall thickening On Levofloxacin 3. CAD Status post recent PCI with stent placement (Jun 2016) On beta yg, CHAYO inhibitor, Ranexa, dual antiplatelet therapy, statin 4. HTN BP controlled on beta yg, CHAYO inhibitor 5. DM On long-acting insulin Accu-Cheks and SSI to assess insulin requirements 6. Hyperlipidemia On statin 7. Lupus Not on treatment 8. Asthma Continue Singulair, inhaled bronchodilators 9. History of PE CTA chest on admission negative for PE 10. Psychiatric disorder/chronic pain On Zoloft and Lyrica 11. DVT prophylaxis History Interval history: doing well, no complaints, dysuria resolved Hospitalist Physical - Constitutional Vitals: Temp Pulse Resp BP Pulse Ox 98.6 F 67 20 137/85 99 07/14/16 16:20 07/14/16 16:20 07/14/16 16:20 07/14/16 16:20 07/14/16 16:20 General appearance: Present: no acute distress, well-nourished - EENT Eyes: Present: PERRL, EOM intact. Absent: scleral icterus, conjunctival injection - Neck Neck: Present: supple, normal ROM. Absent: masses or JVD - Respiratory Respiratory effort: normal Respiratory: bilateral: CTA, negative: rales, rhonchi, wheezing - Cardiovascular Rhythm: regular Heart Sounds: Present: S1 & S2. Absent: systolic murmur - Extremities Extremities: no ischemia - Abdominal General gastrointestinal: soft, non-tender, non-distended, normal bowel sounds - Integumentary Integumentary: Present: warm, dry. Absent: jaundice, rash - Psychiatric Psychiatric: cooperative - Neurologic Neurologic: CNII-XII intact, no focal deficits Results - Labs CBC & Chem 7: 07/11/16 02:13 07/11/16 02:13 Labs: Laboratory Last Values WBC 14.6 K/mm3 (4.5-11.0) H 07/11/16 02:13 RBC 4.89 M/mm3 (3.65-5.03) 07/11/16 02:13 Hgb 14.7 gm/dl (10.1-14.3) H 07/11/16 02:13 Hct 43.9 % (30.3-42.9) H 07/11/16 02:13 MCV 90 fl (79-97) 07/11/16 02:13 MCH 30 pg (28-32) 07/11/16 02:13 MCHC 33 % (30-34) 07/11/16 02:13 RDW 12.7 % (13.2-15.2) L 07/11/16 02:13 Plt Count 260 K/mm3 (140-440) 07/11/16 02:13 Lymph % (Auto) 11.3 % (13.4-35.0) L 07/11/16 02:13 [place] % (Auto) 7.2 % (0.0-7.3) 07/11/16 02:13 Eos % (Auto) 0.2 % (0.0-4.3) 07/11/16 02:13 Baso % (Auto) 0.4 % (0.0-1.8) 07/11/16 02:13 Lymph # 1.6 K/mm3 (1.2-5.4) 07/11/16 02:13 [place] # 1.1 K/mm3 (0.0-0.8) H 07/11/16 02:13 Eos # 0.0 K/mm3 (0.0-0.4) 07/11/16 02:13 Baso # 0.1 K/mm3 (0.0-0.1) 07/11/16 02:13 Seg Neutrophils % 80.9 % (40.0-70.0) H 07/11/16 02:13 Seg Neutrophils # 11.8 K/mm3 (1.8-7.7) H 07/11/16 02:13 PT 14.2 Sec. (12.2-14.9) 07/11/16 02:13 INR 1.11 (0.87-1.13) 07/11/16 02:13 APTT 29.2 Sec. (24.2-36.6) 07/11/16 02:13 Sodium 137 mmol/L (137-145) 07/11/16 02:13 Potassium 4.4 mmol/L (3.6-5.0) 07/11/16 02:13 Chloride 94.0 mmol/L (98-107) L 07/11/16 02:13 Carbon Dioxide 23 mmol/L (22-30) 07/11/16 02:13 Anion Gap 24 mmol/L 07/11/16 02:13 BUN 12 mg/dL (7-17) 07/11/16 02:13 Creatinine 0.6 mg/dL (0.7-1.2) L 07/11/16 02:13 Estimated GFR > 60 ml/min 07/11/16 02:13 BUN/Creatinine Ratio 20.00 % 07/11/16 02:13 Glucose 214 mg/dL (65-100) H 07/11/16 02:13 POC Glucose 283 (70-105) H 07/14/16 17:11 Lactic Acid 2.7 mmol/L (0.7-2.0) H* 07/11/16 05:59 Calcium 10.0 mg/dL (8.4-10.2) 07/11/16 02:13 Total Bilirubin 0.9 mg/dL (0.1-1.2) 07/11/16 03:02 Direct Bilirubin < 0.2 mg/dL (0-0.2) 07/11/16 03:02 Indirect Bilirubin 0.7 mg/dL 07/11/16 03:02 AST 14 units/L (5-40) 07/11/16 03:02 ALT 14 units/L (7-56) 07/11/16 03:02 Alkaline Phosphatase 66 units/L (35-129) 07/11/16 03:02 Troponin T < 0.010 ng/mL (0.00-0.029) 07/11/16 07:56 Total Protein 7.6 g/dL (6.3-8.2) 07/11/16 03:02 Albumin 4.3 g/dL (3.9-5) 07/11/16 03:02 Albumin/Globulin Ratio 1.3 % 07/11/16 03:02 Lipase 18 units/L (13-60) 07/11/16 03:02 Urine Color Yellow (Yellow) 07/11/16 03:02 Urine Turbidity Cloudy (Clear) 07/11/16 03:02 Urine pH 5.0 (5.0-7.0) 07/11/16 03:02 Ur Specific [place] 1.015 (1.003-1.030) 07/11/16 03:02 Urine Protein 30 mg/dl mg/dL (Negative) 07/11/16 03:02 Urine Glucose (UA) Neg mg/dL (Negative) 07/11/16 03:02 Urine Ketones Neg mg/dL (Negative) 07/11/16 03:02 Urine Blood Mod (Negative) 07/11/16 03:02 Urine Nitrite Neg (Negative) 07/11/16 03:02 Urine Bilirubin Neg (Negative) 07/11/16 03:02 Urine Urobilinogen < 2.0 mg/dL (<2.0) 07/11/16 03:02 Ur Leukocyte Esterase Lg (Negative) 07/11/16 03:02 Urine WBC (Auto) > 182.0 /HPF (0.0-6.0) H 07/11/16 03:02 Urine RBC (Auto) 10.0 /HPF (0.0-6.0) 07/11/16 03:02 U Epithel Cells (Auto) 3.0 /HPF (0-13.0) 07/11/16 03:02 Urine Bacteria (Auto) 2+ /HPF (Negative) 07/11/16 03:02 Urine Mucus Few /HPF 07/11/16 03:02
[2016-07-14] MEDS: LEVEMIR SUB-Q SCH (21:56)
[2016-07-15 08:04] VITALS: BP 137/82
--- NOTE | 2016-07-15 08:09 | Discharge Summary ---
Providers - Providers Date of Admission: 07/11/16 05:26 Date of discharge: 07/15/16 Attending physician: MARYJANE BLAIR Primary care physician: BOBBY JORGENSEN Hospitalization Condition: Good Pertinent studies: CXR CTA chest CT abd/pelvis Hospital course: Patient is a 46 years old location female with coronary artery disease status post recent PCI with stent placement, hypertension, diabetes, hyperlipidemia who presented to the hospital complaining of abdominal pain, fatigue and malaise. Diagnosed with sepsis secondary to urinary tract infection and treated with antibiotics. She is discharged in stable condition; she will finish antibiotic course and will follow her lard mixer and PCP. Discharge diagnoses: 1. Sepsis Secondary to UTI Received IV fluids Continue antibiotic 2. UTI/cystitis UA suggestive of UTI; urine culture grew Escherichia coli pansensitive CT abdomen showing bladder wall thickening On Levofloxacin 3. CAD Status post recent PCI with stent placement (Jun 2016) On beta yg, CHAYO inhibitor, Ranexa, dual antiplatelet therapy, statin 4. HTN BP controlled on beta yg, CHAYO inhibitor 5. DM On long-acting insulin Accu-Cheks and SSI to assess insulin requirements 6. Hyperlipidemia On statin 7. Lupus Not on treatment 8. Asthma Continue Singulair, inhaled bronchodilators 9. History of PE CTA chest on admission negative for PE 10. Psychiatric disorder/chronic pain On Zoloft and Lyrica Disposition: DISCHARGED TO HOME OR SELFCARE Time spent for discharge: 35 min Core Measure Documentation - Palliative Care Palliative Care/ Comfort Measures: Not Applicable - Core Measures Any of the following diagnoses?: acute HI, history only - Acute HI Discharge Requirements Aspirin at discharge: Yes CHAYO/ARB for LVSD if EF <40%: Yes Beta yg at discharge: Yes Statin for LDL = or >100 mg/dl on DC: Yes Exam - Physical Exam Narrative exam: Patient seen and examined: - Constitutional Vitals: Temp Pulse Resp BP Pulse Ox 98.5 F 69 20 156/88 94 07/15/16 00:00 07/15/16 00:00 07/15/16 00:00 07/15/16 00:00 07/15/16 00:00 General appearance: Present: no acute distress, well-nourished - EENT Eyes: Present: PERRL, EOM intact. Absent: scleral icterus, conjunctival injection - Neck Neck: Present: supple, normal ROM. Absent: masses or JVD - Respiratory Respiratory effort: normal Respiratory: bilateral: CTA, negative: rales, rhonchi, wheezing - Cardiovascular Rhythm: regular Heart Sounds: Present: S1 & S2. Absent: systolic murmur - Extremities Extremities: no ischemia - Abdominal General gastrointestinal: Present: soft, non-tender, non-distended, normal bowel sounds - Psychiatric Psychiatric: cooperative - Neurologic Neurologic: CNII-XII intact, no focal deficits Plan Activity: advance as tolerated Diet: low cholesterol, low salt, diabetic Follow up with: BOBBY JORGENSEN MD [Primary Care Provider] - 7 Days Prescriptions: Insulin Glargine [Lantus VIAL] 80 unit SUB-Q QHS #30 units Atorvastatin Calcium [Lipitor] 40 mg PO QHS #30 tab Fluticasone/Salmeterol [Advair Diskus 500-50 mcg] 1 each IH QDAY #1 blst.w.dev Aspirin [Aspirin BABY CHEW TAB] 81 mg PO QDAY #30 tab.chew Losartan [Cozaar] 50 mg PO QDAY #30 tablet Prasugrel [Effient] 10 mg PO QDAY #30 tablet Levofloxacin [Levaquin TAB] 500 mg PO Q24HR #2 tablet Pregabalin [Lyrica] 75 mg PO QDAY #30 capsule Metoprolol Xl [Metoprolol SUCCINATE ER TAB] 75 mg PO QDAY #30 tablet ALBUTEROL Inhaler [ProAir HFA Inhaler] 2 puff IH QID PRN #1 inha PRN Reason: Shortness Of Breath Ranolazine ER [Ranexa ER] 500 mg PO BID #60 tablet Montelukast [Singulair] 10 mg PO QPM #30 tablet Sertraline [Zoloft] 50 mg PO QDAY #30 tablet Arformoterol Nebu [Brovana Nebu] 15 mcg IH BIDRT #1 ml Budesonide [Pulmicort Respules] 1 mg IH BIDRT #14 nebu
[2016-07-15] MEDS: NOVOLOG SUB-Q SCH (08:36)
[2016-07-15] MEDS: PULMICORT IH SCH (08:56)
[2016-07-15] MEDS: BROVANA NEBU IH SCH (08:56)
[2016-07-15] MEDS: COZAAR PO SCH (09:57)
[2016-07-15] MEDS: EFFIENT PO SCH (09:57)
[2016-07-15] MEDS: BABY ASPIRIN PO SCH (09:57)
[2016-07-15] MEDS: RANEXA ER PO SCH (09:57)
[2016-07-15] MEDS: TOPROL XL PO SCH (09:58)
[2016-07-15] MEDS: LYRICA PO SCH (09:58)
[2016-07-15] MEDS: ZOLOFT PO SCH (09:58)
[2016-07-15] MEDS ORDERED: LEVAQUIN PO SCH (10:00)
== END 2016-07-15 10:50 | disposition home or self-care (01) | DRG 872 ==
LOC: ED 01:24 → 3A 05:26
PROVIDERS: ADMIT Internal Medicine; ATTEND Internal Medicine
DX: A41.9 Sepsis, unspecified organism (principal); E11.9 Type 2 diabetes mellitus without complications; M32.9 Systemic lupus erythematosus, unspecified; I10 Essential (primary) hypertension; J45.909 Unspecified asthma, uncomplicated; E78.5 Hyperlipidemia, unspecified; N12 Tubulo-interstitial nephritis, not specified as acute or chronic; N30.00 Acute cystitis without hematuria; G89.29 Other chronic pain; F99 Mental disorder, not otherwise specified; B96.20 Unspecified Escherichia coli [E. coli] as the cause of diseases classified elsewhere; I25.2 Old myocardial infarction; Z95.5 Presence of coronary angioplasty implant and graft; Z86.711 Personal history of pulmonary embolism; Z86.73 Personal history of transient ischemic attack (TIA), and cerebral infarction without residual deficits; Z79.4 Long term (current) use of insulin; Z79.82 Long term (current) use of aspirin; Z79.899 Other long term (current) drug therapy; Z87.442 Personal history of urinary calculi; Z98.890 Other specified postprocedural states; Z98.51 Tubal ligation status; Z87.891 Personal history of nicotine dependence; Z79.02 Long term (current) use of antithrombotics/antiplatelets; Z82.49 Family history of ischemic heart disease and other diseases of the circulatory system
CPT/HCPCS: 36415; 71010; 71275; 74177; 80048; 80074; 81001; 82140; 82962; 83690; 84484; 85025; 85610; 85730; 87040; 87076; 87086; 87186; 93005; 93010; 94640; 94760; 96361; 96365; 96375; 99406; A9270-GY; J0696; J1815; J1818; J1956; J2270; J2405; J7030; Q9967

== ENCOUNTER 2016-08-13 06:46 | Observation (INO) | payer MEDICAID ==
[2016-08-13 07:25] LABS: Basophils % (Auto) 0.6 % (0.0-1.8); Eosinophils % (Auto) 2.9 % (0.0-4.3); Hematocrit 40.9 % (30.3-42.9); Mean Corpuscular HGB Conc 34 % (30-34); Mean Corpuscular Hemoglobin 31 pg (28-32); Mean Corpuscular Volume 90 fl (79-97); Platelet Count 212 K/mm3 (140-440); Red Blood Count 4.55 M/mm3 (3.65-5.03); Red Cell Distribution Width 13.4 % (13.2-15.2); White Blood Count 7.8 K/mm3 (4.5-11.0)
[2016-08-13 07:37] LABS: INR 0.91 (0.87-1.13)
[2016-08-13 07:46] LABS: Anion Gap 19 mmol/L; BUN/Creatinine Ratio 31.66; Blood Urea Nitrogen 19 mg/dL (7-17); Calcium 9.8 mg/dL (8.4-10.2); Carbon Dioxide 23 mmol/L (22-30); Chloride 95.7 mmol/L (98-107); Glucose 144 mg/dL (65-100); Potassium 4.1 mmol/L (3.6-5.0); Sodium 134 mmol/L (137-145)
[2016-08-13] MEDS ORDERED: NACL 0.9% 500 ML 500 ML IV SCH (08:00)
[2016-08-13] MEDS ORDERED: HEPARIN/NS 5000 UNIT/500ML(CATH LAB) 1,000 ML IR ONE (08:09)
[2016-08-13] MEDS ORDERED: HEPARIN 10,000 UNITS/10 ML ONE (08:09)
[2016-08-13] MEDS ORDERED: CALAN ONE (08:09)
[2016-08-13] MEDS ORDERED: XYLOCAINE 2% INFILTRATI ONE (08:10)
[2016-08-13] MEDS ORDERED: NITROGLYCERIN SYRINGE 3 ML ONE (08:10)
[2016-08-13] MEDS ORDERED: DULCOLAX PR PRN (08:30)
[2016-08-13] MEDS ORDERED: TYLENOL PO PRN (08:30)
[2016-08-13] MEDS ORDERED: ZOFRAN IV PRN (08:30)
[2016-08-13] MEDS ORDERED: MILK OF MAGNESIA PO PRN (08:30)
[2016-08-13] MEDS: VERSED ONE ×2 (08:45→09:09)
[2016-08-13] MEDS: SUBLIMAZE ONE ×2 (08:45→09:09)
[2016-08-13] MEDS: ANGIOMAX IV ONE ×2 (09:05→09:06)
[2016-08-13] MEDS ORDERED: ALUM-MAG HYDROX-SIMETH 200-200-20MG/5ML ONE (09:21)
[2016-08-13] MEDS ORDERED: PLAVIX ONE (09:22)
[2016-08-13] MEDS ORDERED: APRESOLINE ONE (09:25)
[2016-08-13] MEDS ORDERED: NITROSTAT SL ONE (09:37)
[2016-08-13] MEDS ORDERED: AGGRASTAT DRIP (12.5 MG/250 ML) 12,500 MCG/250 ML BAG IV ONE (09:52)
--- NOTE | 2016-08-13 10:19 | Cardiac Catherization Report ---
CARDIAC CATHETERIZATION REFERRING PHYSICIAN: Dr. Hector. PROCEDURE: This is a staged PCI. INDICATION FOR PROCEDURE: The patient is a pleasant 46-year-old -[place] female who has a very aggressive history of coronary disease. Just recently quit smoking. Has multiple PCIs, most recently on 07/01/2016, underwent PCI of proximal left circumflex. She is on atorvastatin, Effient, losartan, metoprolol, Ranexa and has failed medical therapy. Still having chest pain. Known to have the lesion which is now staged. PROCEDURE IN DETAIL: The patient was brought to the phlebotomy lab assistant in a postabsorptive state, prepped and draped in sterile fashion. Reed's test in right hand was normal. A 2 mL of 2% lidocaine used to anesthetize the right wrist. A standard 6-Thai hydrophilic sheath used to cannulate the right radial artery via modified Seldinger technique. All exchanges performed to exchange a J-tip guidewire. JR4 catheter used to cross the aortic valve under fluoroscopic guidance. Left ventriculography performed in 30 SINGH projection via hand injections. The catheter flushed. Manual pullback performed with continuous pressure monitoring. Catheter used to engage the right coronary. No dampening or ventricularization. Cineangiography performed in all projections. Next, catheter removed from the body, exchanged for an EBU 3.5 guide used to engage the left main without difficulty. DATA: Aortic pressure is 140/80, LV pressure is 140. LVEDP of 10 mmHg. Left ventriculography revealed normal systolic performance with estimated ejection fraction of 55-60%. No evidence of aortic stenosis. CORONARY ANATOMY: This is a right dominant system. Right coronary is a moderate sized vessel, courses AV groove, distally bifurcates in the posterior descending and posterolateral branch, patent stent in the right coronary, 40-50% mid right coronary stenosis identified. No significant from prior catheterization. No significant difference from prior catheterization. The left main without significant disease. It bifurcates left anterior descending and left circumflex. Left circumflex is a moderate sized vessel, courses AV groove. Proximal left circumflex stent is widely patent. A 25% stenosis in the mid segment. LAD is a moderate sized vessel, courses anterior interventricular groove. This appears to be a double barrel LAD. Stent in the proximal LAD is patent stent. Stent in the proximal first diagonal is patent. The distal first diagonal with a chronic total occlusion with left to left collaterals. The body of the LAD with small diffuse nonobstructive disease. Small vessel stent in the proximal diagonal is patent. There is a 95% stenosis in the mid first diagonal. At this point, we turned our attention to PCI. Angiomax was given. Abnormal ACT is confirmed. A linkedüwater wire is used. We used a 2.0 x 12 balloon to predilate the lesion. Thereafter, we used a 2.25 x 14 drug-eluting stent deployed at 10 NINO for 30 seconds. Good angiographic result with a 2.5 x 8 noncompliant balloon to postdilate the overlap. Final angiogram reveals excellent result, well opposed and well expanded stent. I did not use intravascular ultrasound due to the small nature of the distal vessel and risk for dissection. The patient tolerated the procedure well. No complications. No chest pain. CONCLUSIONS: 1. Significant diffuse epicardial coronary disease. A successful PCI of 95% mid first diagonal with placement of drug-eluting stent (resolute 2.25 x 14) with excellent final angiographic result. 2. Patent proximal first diagonal stent. 3. Patent proximal LAD stent. 4. Diffuse small vessel disease in the distal LAD. 5. Chronic total occlusion of distal first diagonal with excellent left to left collaterals. 6. Patent mid proximal left circumflex stent. 7. Patent proximal right coronary artery stent with 40-50% stenosis in its mid segments. Aspirin, Plavix and statin. She cannot afford Effient. We will again try to renew her Ranexa. Aggressive medical management. Risk factor modification showing recently quit smoking, She is at least intermediate to high risk for future cardiac events, really needs to be aggressive with her lifestyle changes. Long discussion with the patient and family. She will be admitted to the step down unit. JOB# [id number] SBBhupinder/YOANNA
[2016-08-13] MEDS ORDERED: NORCO 5/325 ONE (11:44)
[2016-08-13] MEDS: NORCO 5/325 PO PRN ×2 (11:48→21:00)
[2016-08-13] MEDS ORDERED: PROAIR IH PRN (13:38)
[2016-08-13] MEDS ORDERED: NON-FORMULARY (Ipratropium/Albuter (Nf) 2 PUFF) IH SCH (14:00)
--- NOTE | 2016-08-13 14:03 | Short Stay Summary ---
Short Stay Documentation Date of service: 08/13/16 - History H&P: obtained from office - Allergies and Medications Current Medications: Allergies No Known Allergies Allergy (Verified 02/17/16 13:53) Home Medications Medication Instructions Recorded Confirmed Last Taken Type Insulin Regular, Human [HumuLIN R] See Protocol SQ ACHS 03/27/16 08/13/16 History Ipratropium/Albuter (Nf) 2 puff IH QID #1 inha 03/28/16 08/13/16 08/12/16 Rx [Combivent Inhaler] Metformin HCl [Glucophage] 1,000 mg PO BID #60 tablet 03/28/16 08/13/16 Rx oxyCODONE /ACETAMINOPHEN [Percocet 1 tab PO Q6H PRN #20 tablet 03/28/1608/12/16 Rx 5/325 mg] ALBUTEROL Inhaler [ProAir HFA 2 puff IH QID PRN #1 inha 07/15/16 08/13/16 Rx Inhaler] Arformoterol Nebu [Brovana Nebu] 15 mcg IH BIDRT #1 ml 07/15/16 08/13/16 Rx Atorvastatin Calcium [Lipitor] 40 mg PO QHS #30 tab 07/15/16 08/13/16 08/12/16 Rx Budesonide [Pulmicort Respules] 1 mg IH BIDRT #14 nebu 07/15/16 08/13/16 Rx Fluticasone/Salmeterol [Advair 1 each IH QDAY #1 blst.w.dev 07/15/16 08/13/16 Rx Diskus 500-50 mcg] Insulin Glargine [Lantus VIAL] 80 unit SUB-Q QHS #30 units 07/15/16 08/13/1601/19 Rx Losartan [Cozaar] 50 mg PO QDAY #30 tablet 07/15/16 08/13/16 08/12/16 Rx Metoprolol Xl [Metoprolol 75 mg PO QDAY #30 tablet 07/15/16 08/13/16 08/13/16 Rx SUCCINATE ER TAB] Montelukast [Singulair] 10 mg PO QPM #30 tablet 07/15/16 08/13/16 08/12/16 Rx Pregabalin [Lyrica] 75 mg PO QDAY #30 capsule 07/15/16 08/13/16 08/12/16 Rx Ranolazine ER [Ranexa ER] 500 mg PO BID #60 tablet 07/15/16 08/13/16 08/12/16 Rx Sertraline [Zoloft] 50 mg PO QDAY #30 tablet 07/15/16 08/13/16 08/12/16 Rx Aspirin EC [Aspirin Enteric Coated 325 mg PO DAILY 08/13/16 08/13/16 08/12/16 History TAB] Clopidogrel Bisulfate [Plavix] 75 mg PO DAILY 08/13/16 08/13/16 08/13/16 History Active Medications Acetaminophen (Tylenol) 650 mg PO Q4H PRN PRN Reason: Pain MILD(1-3)/Fever >100.5/[place] Acetaminophen/Hydrocodone Bitart (Starbuck 5/325) 1 each PO Q6H PRN PRN Reason: Pain, Moderate (4-6) Last Admin: 08/13/16 11:48 Dose: 1 each Albuterol (Proair) 2 puff IH QID PRN PRN Reason: Shortness Of Breath Arformoterol Tartrate (Brovana Nebu) 15 mcg IH BIDRT [facility] Aspirin (Ecotrin) 325 mg PO DAILY [facility] Atorvastatin Calcium (Lipitor) 40 mg PO QHS [facility] Bisacodyl (Dulcolax) 10 mg [place] QDAY PRN PRN Reason: Constipation unrelieved by MOM Budesonide (Pulmicort) 1 mg IH BIDRT [facility] Clopidogrel Bisulfate (Plavix) 75 mg PO DAILY [facility] Heparin Sodium (Porcine) (Heparin) 5,000 unit SUB-Q Q8HR [facility] Sodium Chloride (Nacl 0.9% 500 Ml) 500 mls @ 50 mls/hr IV DIRECT ALDAIR Last Admin: 08/13/16 08:00 Dose: 50 mls/hr Insulin Aspart (Novolog) 0 units SUB-Q ACHS [facility] PRN Reason: Protocol Insulin Detemir (Levemir) 80 units SUB-Q QHS [facility] Losartan Potassium (Cozaar) 50 mg PO QDAY [facility] Magnesium Hydroxide (Milk Of Magnesia) 30 ml PO Q4H PRN PRN Reason: Constipation Metoprolol Succinate (Toprol Xl) 75 mg PO QDAY [facility] Miscellaneous Medication (Fluticasone/Salmeterol [Advair Diskus 500-50 Mcg]) 1 each IH QDAY [facility] Miscellaneous Medication (Ipratropium/Albuter (Nf)) 2 puff IH QID [facility] Montelukast Sodium (Singulair) 10 mg PO QPM [facility] Ondansetron HCl (Zofran) 4 mg IV Q8H PRN PRN Reason: N/V unrelieved by Reglan Pregabalin (Lyrica) 75 mg PO QDAY [facility] Ranolazine (Ranexa Er) 500 mg PO BID [facility] Sertraline HCl (Zoloft) 50 mg PO QDAY [facility] - Brief post op/procedure progress note Date of procedure: 08/13/16 Pre-op diagnosis: chest pain, coronary artery disease Procedure: Left heart cath and PCI of diagonal - Hospital course Hospital course: The patient is a 46 year old female who is followed by Dr. Singh in the office with a history of CAD s/p PCI, hypertension, hyperlipidemia, diabetes who presented for elective left heart cath on 08/13/15. She had recently undergone left heart cath in 06/2016 which showed lt main patent, lad proximal patent distal 100% right to left collaterals (no change from 2014), diagonal 1 stent patent, mid diagonal new 90% lesion of small vessel, lcx mid 99%, om1 patent diffuse disease, om2 medium caliber mid 30% distal patent, distal lcx 90 % at mid lcx and rca mid 20-30% and distal stent patent. She underwent pci of mid lcx (shelia xience 3.5 x 15 mm) at that time but continued to have chest pain so was referred for repeat heart cath. She underwent successful PCI of the diagonal lesion by Dr. Eduin Hernandez and was monitored on telemetry overnight. She will be discharged home today in stable condition. Follow up with Dr. Singh in the [place] office on 08/20/16 at 1:30 pm. - Disposition Condition at discharge: Stable Disposition: DISCHARGED TO HOME OR SELFCARE - Discharge Diagnoses (1) Chest pain Status: Resolved Qualifiers: Chest pain type: unspecified Qualified Code(s): R07.9 - Chest pain, unspecified (2) CAD (coronary artery disease) Status: Chronic Qualifiers: Coronary Disease-Associated Artery/Lesion type: eyak artery Craig vs. transplanted heart: N Associated angina: A (3) Stented coronary artery Status: Chronic (4) Diabetes mellitus Status: Chronic Qualifiers: Diabetes mellitus type: type 2 Diabetes mellitus complication status: D Diabetes mellitus complication detail: D Diabetic retinopathy severity: D Proliferative retinopathy type: P Diabetes mellitus macular edema: D Diabetes mellitus retirement insulin use: D Laterality: L Chronic kidney disease stage: C (5) Hypertension Status: Chronic Qualifiers: Hypertension type: essential hypertension Qualified Code(s): I10 - Essential (primary) hypertension (6) Hyperlipidemia Status: Chronic Qualifiers: Hyperlipidemia type: H (7) Lupus Status: Chronic Short Stay Discharge Plan Activity: advance as tolerated Weight Bearing Status: Weight Bear as Tolerated Diet: low fat, low cholesterol, diabetic Wound: keep clean and dry Follow up with: BOBBY JORGENSEN MD [Primary Care Provider] - 7 Days JULI SINGH MD [Staff Physician] - 08/20/16 1:30 pm Forms: CardCath PCI D/C Instructions
[2016-08-13] MEDS ORDERED: PROVENTIL IH PRN (14:12)
[2016-08-13] MEDS: NACL 0.9% 100 ML ONE ×2 (15:00→19:26)
[2016-08-13] MEDS: DUONEB 0.5 MG-3 MG/3 ML SOLN IH SCH ×2 (17:22→19:26)
[2016-08-13] MEDS ORDERED: SINGULAIR PO SCH (18:00)
[2016-08-13] MEDS: NOVOLOG SUB-Q SCH ×2 (19:00→21:51)
[2016-08-13] MEDS: BROVANA NEBU IH SCH (19:26)
[2016-08-13] MEDS: PULMICORT IH SCH (19:26)
[2016-08-13] MEDS: RANEXA ER PO SCH (21:01)
[2016-08-13] MEDS: HEPARIN SUB-Q SCH (21:01)
[2016-08-13] MEDS ORDERED: LEVEMIR SUB-Q SCH (22:00)
[2016-08-14] MEDS: HEPARIN SUB-Q SCH (06:39)
[2016-08-14] MEDS: NORCO 5/325 PO PRN (06:41)
[2016-08-14 07:45] LABS: Basophils % (Auto) 0.7 % (0.0-1.8); Eosinophils % (Auto) 3.7 % (0.0-4.3); Hematocrit 38.5 % (30.3-42.9); Hemoglobin 13.1 gm/dl (10.1-14.3); Mean Corpuscular HGB Conc 34 % (30-34); Mean Corpuscular Hemoglobin 30 pg (28-32); Mean Corpuscular Volume 90 fl (79-97); Platelet Count 168 K/mm3 (140-440); Red Cell Distribution Width 13.3 % (13.2-15.2); White Blood Count 5.4 K/mm3 (4.5-11.0)
[2016-08-14 08:03] LABS: Creatine Kinase MB 4.4 ng/mL (0.0-4.0)
--- NOTE | 2016-08-14 08:04 | Admit Criteria Form ---
Admission Criteria Documentation: TELEMETRY CARE Telemetry Admission Guidelines (Place 'X' for any and all applicable criteria): Admission to telemetry [A] may be indicated for ANY ONE of the following(1)(2)(3 )(4)(5): [X ]I. Cardiac disease, including ANY ONE of the following (9)(10)(11)(12)( 13): [ ]a) Postacute KS [ ]b) Low-risk patients with ST-segment elevation KS who have undergone successful percutaneous coronary intervention [ ]c) Unstable angina [ ]d) Suspected KS (until it is ruled out) [ ]e) Post cardiac surgery (first 48 to 72 hours unless complications occur) [ ]f) Acute arrhythmias (including significant tachycardia or bradycardia) [B] [ ]g) Firing of an implantable cardioverter defibrillator [C] [ ]h) Suspected pacemaker or implantable cardioverter defibrillator malfunction (10) [ ]i) New administration or adjustment of an antiarrhythmic drug [D ] [ ]j) Child admitted for acute congestive heart failure [ ]j) Long QT syndrome [ ]k) Advanced heart block (eg, second-degree Mobitz type II, third- degree heart block) [ ]l) Acute myocarditis or pericarditis [X ]m) Short-term (ambulatory or inpatient) monitoring after a cardiac procedure as indicated by ANY ONE of the following [E]: [ ]i) Electrophysiologic studies [ X]ii) Percutaneous coronary intervention with stent placement [ ]iii) Pacemaker placement with cardiac conduction defect [ ]iv) Implantable cardiac defibrillator placement [ ]II. Drug overdose or poisoning with substance that causes arrhythmias or QT prolongation (eg, phenothiazines, sympathomimetic agents, cyclic antidepressants, digitalis, antiarrhythmic drugs)(15) [ ]III. Short-term (ambulatory or inpatient) monitoring after therapeutic or diagnostic procedure requiring conscious sedation or anesthesia (eg, endoscopy, elective cardioversion) [ ]IV. Acute cerebrovascular even[F](18) [ ]V. Massive blood transfusion (eg, at least 10 units of packed red blood cells in 24 hours) [ ]. Variceal bleeding after endoscopy, sclerotherapy, or IV vasopressin [ ]VII. Uncorrected electrolyte abnormalities associated with an increased risk of dangerous arrhythmia [G]; examples include [ ]a) Hyperkalemia with attributable ECG changes [ ]b) Potassium greater than 6.5 mmol/L (mEq/L) in a patient without history of chronic renal disease [ ]c) Prolonged QT attributed to hypokalemia, hypomagnesemia, or hypocalcemia [ ]VIII.Unexplained syncope or other neurologic event suspected of being due to arrhythmia due to a finding that increases risk; examples include(19)(20)(21): [ ]a) High-risk ECG findings (eg, bifascicular block, bradycardia, abnormal QT interval, ventricular pre- excitation) [ ]b) History of previous syncope due to arrhythmia [ ]c) Abnormal ventricular function (eg, reduced ejection fraction ) [ ]d) Exertional or supine syncope [ ]e) Concerning syncope characteristics (eg, sudden loss of consciousness without prodrome) [ ]f) Family history of sudden [ ]g) Use of arrhythmogenic medication [ ]h) Suspected cardiac ischemia [ ]i) Known channelopathy (eg, long QT syndrome, Brugada syndrome, or catecholaminergic paroxysmal ventricular tachycardia) [ ]j) Known structural heart disease (eg, hypertrophic cardiomyopathy , severe valvular disease) [ ]k) Palpitations preceding syncope The original [employer] content created by [employer] has been revised. The portions of the content which have been revised are identified through the use of italic text or in bold, and [facility] has neither reviewed nor approved the modified material. All other unmodified content is copyright [employer]. Please see references footnoted in the original [employer] edition 2016 Admission Criteria Met: Yes
[2016-08-14 08:17] LABS: Anion Gap 19 mmol/L; BUN/Creatinine Ratio 23.33; Blood Urea Nitrogen 14 mg/dL (7-17); Carbon Dioxide 25 mmol/L (22-30); Chloride 100.6 mmol/L (98-107); Creatine Kinase 244 units/L (30-135); Glucose 263 mg/dL (65-100); Potassium 4.7 mmol/L (3.6-5.0); Sodium 140 mmol/L (137-145)
[2016-08-14 08:20] VITALS: BP 109/73
[2016-08-14] MEDS: NOVOLOG SUB-Q SCH (08:20)
[2016-08-14] MEDS: DUONEB 0.5 MG-3 MG/3 ML SOLN IH SCH ×2 (09:03→09:07)
[2016-08-14] MEDS: BROVANA NEBU IH SCH (09:07)
[2016-08-14] MEDS: PULMICORT IH SCH (09:07)
[2016-08-14] MEDS ORDERED: ZOLOFT PO SCH (10:00)
[2016-08-14] MEDS ORDERED: TOPROL XL PO SCH (10:00)
[2016-08-14] MEDS ORDERED: LYRICA PO SCH (10:00)
[2016-08-14] MEDS ORDERED: FLUTICASONE IH SCH (10:00)
[2016-08-14] MEDS ORDERED: PLAVIX PO SCH (10:00)
[2016-08-14] MEDS ORDERED: SALMETEROL IH SCH (10:00)
[2016-08-14] MEDS ORDERED: COZAAR PO SCH (10:00)
[2016-08-14] MEDS ORDERED: ECOTRIN PO SCH (10:00)
[2016-08-14] MEDS: RANEXA ER PO SCH (10:32)
--- NOTE | 2016-08-14 11:18 | XRay Report ---
AP CHEST: HISTORY: chest pain AP view of the chest demonstrates a normal mediastinal and cardiac contour with clear lungs and normal bony and soft tissue structures. Minor discoid atelectasis at the right lung base is noted. IMPRESSION: Unremarkable AP chest.
[2016-08-14] MEDS ORDERED: FLUARIX QUAD 2016-2017(36 MOS+) IM ONE (12:08)
== END 2016-08-14 14:08 | disposition home or self-care (01) ==
LOC: OPU 06:46 → 4A 08:30
PROVIDERS: ADMIT Internal Medicine; ATTEND Internal Medicine
DX: I25.119 Atherosclerotic heart disease of native coronary artery with unspecified angina pectoris (principal); E78.4 Other hyperlipidemia; I10 Essential (primary) hypertension; E11.9 Type 2 diabetes mellitus without complications; M32.9 Systemic lupus erythematosus, unspecified; Z23 Encounter for immunization
CPT/HCPCS: 36415; 71010; 80048; 82550; 82553; 82962; 84484; 85025; 85347; 85610; 85730; 90686; 93005; 93010; 93458; 94640; 94760; 96372; 96374; A9270; C1725; C1769; C1874; C1887; C1894; C9600; G0008; G0378; J0360; J0583; J1644; J2250; J3010; J3246; J7040; 90471; 92928; J1815; J1818; Q9967

== ENCOUNTER 2016-11-11 06:04 | Inpatient (IN) | payer MEDICAID ==
[~2016-11-11 06:04] MED LIST: PEPCID PO NR; VERSED IV NR
[2016-11-11] MEDS ORDERED: ANCEF/STERILE WATER 2 GM/20 ML IV ONE (06:30)
[2016-11-11] MEDS ORDERED: NEO SYNEPHRINE/NS Syringe(OR USE) IV ONE (06:30)
[2016-11-11] MEDS ORDERED: NACL BACTERIOSTATIC INFILTRATI ONE (06:38)
[2016-11-11] MEDS: NACL 0.9% 1000 ML 1,000 ML IV SCH (07:00)
--- NOTE | 2016-11-11 07:03 | Anesthesia Day of Surgery ---
Anesthesia Day of Surgery - Day of Surgery Patient Examined: Yes Patient H&P Reviewed: Yes Patient is NPO: Yes
[2016-11-11] MEDS ORDERED: DIPRIVAN 10 MG/ML IV ONE (07:05)
[2016-11-11] MEDS ORDERED: DILAUDID ONE ×2 (07:05→09:50)
[2016-11-11] MEDS ORDERED: XYLOCAINE MPF 2% ONE (07:06)
--- NOTE | 2016-11-11 07:09 | Anesthesia Consultation ---
Anesthesia Consult and Med Hx Date of service: 11/11/16 - Airway Anesthetic Teeth Evaluation: Good ROM Head & Neck: Adequate Mental/Hyoid Distance: Adequate Mallampati Class: Class II Intubation Access Assessment: Probably Good - Pulmonary Exam CTA: Yes - Cardiac Exam Cardiac Exam: RRR - Pre-Operative Health Status ASA Pre-Surgery Classification: ASA2 Proposed Anesthetic Plan: General - Pulmonary Hx Smoking: Yes (quit 04/2016) Hx Asthma: Yes (NILD) SOB: No COPD: No Hx Pneumonia: No Hx Sleep Apnea: No - Cardiovascular System Hx Hypertension: Yes (x 5 yrs) Hx Coronary Artery Disease: Yes (EF 55-60%) Hx Heart Attack/AMI: Yes (2010) Hx Percutaneous Transluminal Coronary Angioplasty (PTCA): Yes (STENTS X 6) - Central Nervous System Hx Seizures: No CVA: Yes (x2, last possibly 08/2016, first 2013, NO RESIDUAL WEAKNESS) Hx Back Pain: Yes Hx Psychiatric Problems: No - Endocrine Hx Renal Disease: No Hx End Stage Renal Disease: No Hx Liver Disease: Yes (Liver mass (2011), WATCHING) Hx Insulin Dependent Diabetes: Yes Hx Thyroid Disease: No - Other Systems Hx Alcohol Use: No Hx Substance Use: No Hx Cancer: No Hx Obesity: Yes
[2016-11-11] MEDS ORDERED: ZOFRAN IV PRN ×2 (07:18→09:03)
[2016-11-11] MEDS ORDERED: DECADRON ONE (07:50)
[2016-11-11] MEDS ORDERED: SUBLIMAZE ONE (07:52)
[2016-11-11] MEDS ORDERED: XYLOCAINE 2%/ EPI 1:200,000 INFILTRATI ONE (07:56)
[2016-11-11] MEDS ORDERED: NEOSPORIN GU IR ONE ×2 (07:57→08:24)
[2016-11-11] MEDS ORDERED: XYLOCAINE 1%/ EPI 1:100,000 INFILTRATI ONE ×2 (07:57→08:25)
[2016-11-11] MEDS ORDERED: ZOFRAN ONE (08:20)
[2016-11-11] MEDS ORDERED: NACL 0.9% IR ONE (08:25)
[2016-11-11] MEDS ORDERED: SILVER NITRATE TP ONE ×2 (08:25→08:35)
[2016-11-11] MEDS ORDERED: D50W (25GM) IV PRN (09:03)
[2016-11-11] MEDS ORDERED: PERCOCET 5/325 PO PRN (09:03)
[2016-11-11] MEDS ORDERED: TYLENOL PO PRN (09:03)
[2016-11-11] MEDS ORDERED: NARCAN 0.4 MG/1 ML IV PRN (09:03)
[2016-11-11] MEDS ORDERED: REGLAN IV PRN (09:03)
[2016-11-11] MEDS ORDERED: MORPHINE IV PRN (09:03)
--- NOTE | 2016-11-11 09:19 | Operative Report ---
Operative Report Operative Report: Preop: Bartholin cyst abscess Postop:: Bartholin cyst abscess Surgeon: Dr. jeronimo Anesthesia: General EBL: minimal Path: Cultures sent to lab complications: none Procedures : After consents signed and procedure explained in detail with all questions answered. Patient was taken to OR and General anesthesia was accomplished. A bimanual exam performed to determine the borders and extend of the abscess. The patietn was then properly prepped and draped in the normal usual fashion and the bladder was drained with a staight cath . The labia was retracted digitally and the introitus exposed to visualize the entire surgical field. 1% lidociane and epi injected ( 5cc) surrounding cyst . A 1.5 to 2cm vertical incision made over the mucosa distal to the hyemenal ring and on the was of the gland at he previous site. Adequate drainage copious amount of purulet fluid drained. Culture wer obtained in the cyst. Bleeding controlled with suction. The was of the gland incised and cysts contents evacuated . The randall of the cyst were grasped with the ALllis clamps and 3-0 vicryl interruped suture the wall of the cyst to the introitus laterally and the vaginal mucosa medially . packing of 1/ 4 inch iodofoam packed to control bleeding. Patient tolerated procedure well. needle and sponges correct x2. patient sent to reccovery in stable condition and will stay overnight for pain control and wound care consult.
[2016-11-11] MEDS ORDERED: NITROMIST TL PRN (09:22)
[2016-11-11] MEDS ORDERED: PROAIR IH PRN (09:22)
[2016-11-11] MEDS ORDERED: NITROSTAT SL PRN (09:22)
[2016-11-11] MEDS: DILAUDID IV PRN ×4 (09:32→10:25)
[2016-11-11] MEDS ORDERED: NON-FORMULARY (Ipratropium/Albuter (Nf) 2 PUFF) IH SCH (10:00)
[2016-11-11] MEDS ORDERED: NON-FORMULARY (Metformin Hcl [Glucophage] 1,000 MG) PO SCH (10:00)
[2016-11-11] MEDS ORDERED: NACL 0.9% 1000 ML 1,000 ML ONE (10:26)
[2016-11-11] MEDS ORDERED: PROVENTIL IH PRN (11:00)
[2016-11-11] MEDS: POLYCILLIN/NS 2 GM/100 ML 2 GM/100 ML BAG IV SCH ×4 (11:35→23:45)
[2016-11-11] MEDS: MORPHINE IV PRN ×3 (11:46→21:08)
[2016-11-11] MEDS: ECOTRIN PO SCH (13:15)
[2016-11-11] MEDS: RANEXA ER PO SCH ×2 (13:15→21:11)
[2016-11-11] MEDS: PLAVIX PO SCH (13:15)
[2016-11-11] MEDS: COZAAR PO SCH (13:18)
[2016-11-11] MEDS: NORVASC PO SCH (13:18)
[2016-11-11] MEDS: LOPRESSOR PO SCH (13:19)
[2016-11-11] MEDS ORDERED: DUONEB 0.5 MG-3 MG/3 ML SOLN IH SCH (14:00)
[2016-11-11 14:34] LABS: Anion Gap 18 mmol/L; BUN/Creatinine Ratio 21.66; Blood Urea Nitrogen 13 mg/dL (7-17); Carbon Dioxide 27 mmol/L (22-30); Chloride 98.4 mmol/L (98-107); Glucose 242 mg/dL (65-100); Potassium 5.1 mmol/L (3.6-5.0); Sodium 138 mmol/L (137-145)
[2016-11-11] MEDS: NORCO 5/325 PO PRN ×2 (17:05→23:43)
[2016-11-11] MEDS: GLUCOPHAGE PO SCH (17:05)
--- NOTE | 2016-11-11 17:10 | Admit Criteria Form ---
Admission Criteria Documentation: SKIN AND WOUND CARE Clinical Indications for Inpatient Care (Place 'X' for any and all applicable criteria): Ongoing inpatient care may be indicated for pressure, venous, arterial, or neuropathic ulcers, with ANY ONE of the following (2)(3)(8)(9)(21)(25): [ ]I. Need for ANY ONE of the following(26) [ ]a) Pressure ulcer closure procedures [ ]b) Skin grafting [ ]c) Wound debridement [ ]d) Dressing change under general anesthesia [ ]e) Arterial revascularization procedures(19) (Also use Aortofemoral or Aortoiliac Bypass or Femoral Popliteal Bypass Criteria as appropriate) [ ]f) Amputation (Also use Foot: Transmetatarsal Amputation or Knee: Amputation Above or Below Knee Criteria as appropriate) [ ]g) Diverting colostomy [ ]h) Other significant surgical treatment [X ]II. Infection requiring inpatient care as indicated by ALL of the following (27) [X ]a) ANY ONE of the following signs of infection: [ ]i) Poorly approximated incision line. [ ]ii) Excessive drainage [ ]iii) Foul odor [X ]iv) Pus [ ]v) Increased redness [ ]vi) Breakdown in tissue after suture removal [ ]vii) Fever [ X]b) ANY ONE of the following findings: [ ]i) Mental status changes [ ]ii) Dehydration [ ]iii) Bacteremia [X ]iv) Perineal infection [ ]v) Hemodynamic instability [ ]vi) High-risk conditions, such as ANY ONE of the following: [ ]1) Poorly controlled diabetes [ ]2) Cirrhosis [ ]3) Neutropenia [ ]4) Asplenia [ ]5) HIV infection [ ]6) Immunosuppression Extended stay beyond goal length of stay for primary condition may be needed until ALL of the following are present(1)(2)(13)(21)(27): [ ]a) Tissue necrosis absent or treatment plan manageable at lower level of care [ ]b) Fistulas, tunneling, or underlying deep tissue infection absent or treated [ ]c) Purulence and tissue breakdown absent or improved [ ]d) Ulcer surgical repair absent or healing without complications [ ]e) Wound infection absent or manageable at lower level of care [ ]f) Comorbidities absent or manageable at lower level of care The original [employer] content created by [employer] has been revised. The portions of the content which have been revised are identified through the use of italic text or in bold, and [facility] has neither reviewed nor approved the modified material. All other unmodified content is copyright [facility]. Please see references footnoted in the original [facility] edition 2016 Admission Criteria Met: Yes
[2016-11-11] MEDS ORDERED: PULMICORT IH SCH (20:00)
[2016-11-11] MEDS ORDERED: LEVEMIR SUB-Q SCH (22:00)
[2016-11-11] MEDS ORDERED: INSULIN GLARGINE 80 UNIT SUB-Q SCH (22:00)
[2016-11-12] MEDS: POLYCILLIN/NS 2 GM/100 ML 2 GM/100 ML BAG IV SCH ×2 (03:59→11:39)
[2016-11-12] MEDS: NACL 0.9% 1000 ML 1,000 ML IV SCH (04:08)
[2016-11-12] MEDS: MORPHINE IV PRN (04:09)
[2016-11-12] MEDS: NORCO 5/325 PO PRN (06:32)
[2016-11-12] MEDS: NORVASC PO SCH (09:48)
[2016-11-12] MEDS: GLUCOPHAGE PO SCH (09:48)
[2016-11-12] MEDS: ECOTRIN PO SCH (09:48)
[2016-11-12] MEDS: RANEXA ER PO SCH (09:48)
[2016-11-12] MEDS: COZAAR PO SCH (09:49)
[2016-11-12] MEDS: PLAVIX PO SCH (09:49)
[2016-11-12] MEDS: LOPRESSOR PO SCH (09:49)
--- NOTE | 2016-11-12 13:06 | Progress Note ---
Assessment and Plan A/P POD#1 s/p Marsupilization of boartholin abscess VSS afebrile pain well controlled d/c chante s/p consult with wound care d/c home on continuation of amoxicillin previously taken f/u in 1-2 weeks with precautions pain meds written Subjective - Subjective Date of service: 11/12/16 Principal diagnosis: S/P Marsupilization Patient reports: appetite normal, voiding normally, pain well controlled, flatus , ambulating normally Objective - Vital Signs Latest vital signs: Vital Signs Temp Pulse Pulse Resp Resp Resp BP 11/12/16 12:41 97.1 F L 76 20 11/12/16 09:49 86 136/87 11/12/16 09:48 86 136/87 11/12/16 08:29 98.3 F 86 20 11/12/16 04:10 17 11/12/16 04:00 98.6 F 80 16 11/12/16 00:00 98.6 F 80 16 11/11/16 21:08 16 11/11/16 19:45 18 11/11/16 19:30 98.6 F 77 16 11/11/16 17:05 18 11/11/16 16:40 97.7 F 76 18 11/11/16 15:36 18 11/11/16 13:15 80 BP 11/12/16 12:41 116/74 11/12/16 09:49 11/12/16 09:48 11/12/16 08:29 136/87 11/12/16 04:10 11/12/16 04:00 111/72 11/12/16 00:00 103/64 11/11/16 21:08 11/11/16 19:45 11/11/16 19:30 107/61 11/11/16 17:05 11/11/16 16:40 108/61 11/11/16 15:36 11/11/16 13:15 91/57 Intake and Output 11/11/16 11/12/16 11/12/16 22:59 06:59 14:59 Intake Total 1200 600 720 Output Total 700 1400 1400 Balance 500 -800 -680 Intake: IV 1200 200 NaCl 0.9% 1000 ml 1,000 1000 ml @ 75 mls/hr IV DIRECT ALDAIR Rx#:[id number] POLYCILLIN/NS 2 GM/100 ML 200 200 2 gm In 100 ml @ 100 mls /hr IV Q4H [facility] Rx#: [id number] Oral 720 Intake, Free Water 400 Output: Urine 700 1400 1400 Indwelling Catheter 700 1400 1400 Other: Total, Intake Amount 360 Total, Output Amount 700 600 800 Voiding Method Indwelling Catheter Indwelling Catheter - Exam Breasts: Present: deferred Cardiovascular: Present: Regular rate, Normal S1 Lungs: Present: Clear to auscultation, Normal air movement Abdomen: Present: normal appearance, soft. Absent: distention, tenderness Vulva: both: normal (no bleeding ) Uterus: Present: normal, firm Extremities: Present: normal Incision: Present: normal, dry, intact - Labs Labs: Abnormal lab results 11/11/16 11/11/16 11/11/16 Range/Units 13:18 15:29 19:49 Potassium 5.1 H (3.6-5.0) mmol/L Creatinine 0.6 L (0.7-1.2) mg/dL Glucose 242 H (65-100) mg/dL POC Glucose 261 H 213 H (70-105) 11/12/16 11/12/16 Range/Units 00:28 03:43 Potassium (3.6-5.0) mmol/L Creatinine (0.7-1.2) mg/dL Glucose (65-100) mg/dL POC Glucose 198 H 235 H (70-105)
--- NOTE | 2016-11-12 13:23 | Discharge Summary ---
Providers - Providers Date of Admission: 11/11/16 08:55 Date of discharge: 11/12/16 Attending physician: CORNELL CAI MD 11/11/16 09:03 Consult to Wound/ET Nurse [CONS] Routine Reason For Exam: wound eval Primary care physician: DOG [employer]CTOR Hospitalization Reason for admission: other (s/p marsupilization POD#1) Procedure: other (marsupilization) Incision: normal, dry, intact Condition at discharge: Good Disposition: DISCHARGED TO HOME OR SELFCARE Plan - Discharge Medications Prescriptions: Ibuprofen [Motrin] 600 mg PO Q8H PRN #30 tablet PRN Reason: Pain oxyCODONE /ACETAMINOPHEN [Percocet 5/325] 1 tab PO Q6HR PRN #30 tablet PRN Reason: Pain - Provider Discharge Summary Activity: no sex for 6 weeks Diet: routine Instructions: routine Additional instructions: [] Smoking cessation referral if applicable(refer to patient education folder for contact #) [] Refer to [facility]'s [facility] Booklet Call your doctor immediately for: * Fever > 100.5 * Heavy vaginal bleeding ( >1 pad per hour) * Severe persistent headache * Shortness of breath * Reddened, hot, painful area to leg or breast * Drainage or odor from incision. * Keep incision clean and dry at all times and follow doctor's instructions regarding bathing/showering - Follow up plan Follow up: PRIMARY CARE, [Primary Care Provider] - 7 Days
[2016-11-12] MEDS ORDERED: DOMEBORO PACKET TP SCH (14:00)
[2016-11-12 17:00] VITALS: BP 128/67
== END 2016-11-12 16:40 | disposition home or self-care (01) | DRG 747 ==
LOC: OR 06:04 → OB 08:55
PROVIDERS: ADMIT Obstetrics & Gynecology; ATTEND Obstetrics & Gynecology
PROC: 0UBLXZZ Excision of Vestibular Gland, External Approach (ICD-10-PCS; principal; 2016-11-11)
DX: N75.1 Abscess of Bartholin's gland (principal); I10 Essential (primary) hypertension; I25.10 Atherosclerotic heart disease of native coronary artery without angina pectoris; Z87.891 Personal history of nicotine dependence; Z98.61 Coronary angioplasty status; Z86.73 Personal history of transient ischemic attack (TIA), and cerebral infarction without residual deficits
CPT/HCPCS: 36415; 80048; 81025; 82962; 87075; 87116; A9270-GY; J0290; J0690; J1100; J1170; J1815; J1818; J2250; J2270; J2370; J2405; J2704; J3010; J7030

== ENCOUNTER 2017-06-01 19:09 | Inpatient (IN) | payer MEDICAID, SELFPAY ==
[2017-06-01] MEDS ORDERED: MORPHINE IV ONE (21:59)
[2017-06-01] MEDS ORDERED: ZOFRAN IV ONE (21:59)
[2017-06-01 22:06] LABS: Basophils % (Auto) 0.6 % (0.0-1.8); Eosinophils % (Auto) 1.2 % (0.0-4.3); Hemoglobin 14.4 gm/dl (10.1-14.3); Mean Corpuscular HGB Conc 34 % (30-34); Mean Corpuscular Hemoglobin 31 pg (28-32); Mean Corpuscular Volume 90 fl (79-97); Platelet Count 234 K/mm3 (140-440); Red Blood Count 4.68 M/mm3 (3.65-5.03); Red Cell Distribution Width 13.5 % (13.2-15.2); White Blood Count 10.2 K/mm3 (4.5-11.0)
[2017-06-01 22:16] LABS: INR 0.94 (0.87-1.13)
[2017-06-01 22:22] LABS: Anion Gap 19 mmol/L; BUN/Creatinine Ratio 30; Blood Urea Nitrogen 15 mg/dL (7-17); Calcium 9.9 mg/dL (8.4-10.2); Carbon Dioxide 25 mmol/L (22-30); Chloride 96.8 mmol/L (98-107); Glucose 236 mg/dL (65-100); Sodium 137 mmol/L (137-145)
--- NOTE | 2017-06-01 23:00 | Emergency Department Report ---
ED Syncope HPI - General Chief Complaint: Chest Pain Stated Complaint: SYNCOPE EPISODE Time Seen by Provider: 06/01/17 21:09 Source: patient, old records Exam Limitations: no limitations - History of Present Illness Initial Comments: 47-year-old female with extensive past medical history including multiple CVAs and TIAs without residual deficits, PE in 2008 currently not on anticoagulation , insulin-dependent diabetes, hypertension, high cholesterol, lupus, CAD with multiple heart catheterizations with last stent placement August 2016 presents to the hospital complaining of syncopal episode. Patient states that her glucose was 171. She's had 3 units of insulin and began to feel lightheaded and felt "funny". Patient then ate a salad and was ambulating around and still did not feel well. EMS was called. When EMS came to help her to the stretcher patient's legs felt wobbly and she had a syncopal episode and woke up with EMS performing a sternal rub. Patient states she had some left arm pain prior to syncopal episode as well as left sharp head pain. She complains of moderate sharp left-sided chest pain after waking up from his syncopal episode. Patient denies any focal weakness and states that both her legs felt weak during the episode. No complaints of shortness of breath, nausea , vomiting, or reported diaphoresis. Patient has been compliant with her medications. Accu-Chek 212 upon arrival with no documented hypoglycemia. PMD: Dr. Jose Denise. [employer] [facility] - Related Data Allergies/Adverse Reactions: Allergies No Known Allergies Allergy (Verified 11/10/16 13:47) Home Medications: Ambulatory Orders Insulin Regular, Human [HumuLIN R] See Protocol SQ ACHS 03/27/16 Ipratropium/Albuter (Nf) [Combivent Inhaler] 2 puff IH QID #1 inha 03/28/16 Metformin HCl [Glucophage] 1,000 mg PO BID #60 tablet 03/28/16 ALBUTEROL Inhaler [ProAir HFA Inhaler] 2 puff IH QID PRN #1 inha 07/15/16 Atorvastatin Calcium [Lipitor] 40 mg PO QHS #30 tab 07/15/16 Budesonide [Pulmicort Respules] 1 mg IH BIDRT #14 nebu 07/15/16 Insulin Glargine [Lantus VIAL] 80 unit SUB-Q QHS #30 units 07/15/16 Ranolazine ER [Ranexa ER] 500 mg PO BID #60 tablet 07/15/16 Aspirin EC [Aspirin Enteric Coated TAB] 325 mg PO DAILY 08/13/16 Clopidogrel Bisulfate [Plavix] 75 mg PO DAILY 08/13/16 Nitroglycerin [place] [Nitromist] 1 spray TL PRN PRN 08/19/16 Nitroglycerin [Nitrostat] 0.4 mg SL Q5M PRN 08/19/16 Amoxicillin [Trimox CAP] 500 mg PO Q8H 11/10/16 Ibuprofen [Motrin] 800 mg PO Q8HR PRN 11/10/16 Losartan [Cozaar] 25 mg PO QDAY 11/10/16 Metoprolol [Lopressor TAB] 50 mg PO DAILY 11/10/16 Oxycodone HCl/Acetaminophen [Percocet 10/325 mg] 1 each PO Q6HR PRN 11/10/16 amLODIPine [Norvasc] 5 mg PO DAILY 11/10/16 oxyCODONE [Roxicodone] 5 mg PO Q6HR PRN 11/10/16 Ibuprofen [Motrin] 600 mg PO Q8H PRN #30 tablet 11/12/16 oxyCODONE /ACETAMINOPHEN [Percocet 5/325] 1 tab PO Q6HR PRN #30 tablet 11/12/16 ED Review of Systems ROS: Stated complaint: SYNCOPE EPISODE Other details as noted in HPI Comment: All other systems reviewed and negative Other: Constitutional: No fevers chills Eyes: No eye pain visual changes or discharge ENT: No ear pain or throat pain Neck: Denies pain Respiratory: Denies cough wheezing shortness of breath Cardiovascular: Denies palpitations, syncope GI: Denies abdominal pain, nausea, vomiting, diarrhea : Denies dysuria Musculoskeletal: Denies back pain, joint swelling Skin: Denies rash, lesions, erythema Neurologic: as per hpi Psychiatric: Denies suicidal ideation, hallucinations ED Past Medical Hx - Past Medical History Previous Medical History?: Yes Hx Hypertension: Yes (x 5 yrs) Hx CVA: Yes (TIA, cva x2 last in aug 2016) Hx Heart Attack/AMI: Yes (2009) Hx Congestive Heart Failure: No Hx Diabetes: Yes Hx Deep Vein Thrombosis: No Hx Pulmonary Embolism: Yes (Right lung) Hx Liver Disease: Yes (Liver mass (2012), WATCHING) Hx Renal Disease: No Hx Headaches / Migraines: No Hx Seizures: No Hx Kidney Stones: Yes Hx Asthma: Yes (NILD) Hx COPD: No Hx Dementia: No Hx HIV: No Additional medical history: HIGH CHOLESTEROL , gullian escalante syndrome, lupus - Surgical History Past Surgical History?: Yes Hx Coronary Stent: Yes (last was 08/2016 x6) Additional Surgical History: RECONSTRUCTIVE BACK SUGERY X3, C SECTION, TUBAL LIGATION - Social History Smoking Status: Never Smoker Substance Use Type: None - Medications Home Medications: Home Medications Medication Instructions Recorded Confirmed Last Taken Type Insulin Regular, Human [HumuLIN R] See Protocol SQ ACHS 03/27/16 11/11/16 History Ipratropium/Albuter (Nf) 2 puff IH QID #1 inha 03/28/16 11/11/16 11/11/16 Rx [Combivent Inhaler] Metformin HCl [Glucophage] 1,000 mg PO BID #60 tablet 03/28/16 11/11/16 Rx ALBUTEROL Inhaler [ProAir HFA 2 puff IH QID PRN #1 inha 07/15/16 11/10/16 Rx Inhaler] Atorvastatin Calcium [Lipitor] 40 mg PO QHS #30 tab 07/15/16 11/11/16 11/10/16 Rx Budesonide [Pulmicort Respules] 1 mg IH BIDRT #14 nebu 07/15/16 11/10/16 Rx Insulin Glargine [Lantus VIAL] 80 unit SUB-Q QHS #30 units 07/15/16 11/11/1602/19 Rx Ranolazine ER [Ranexa ER] 500 mg PO BID #60 tablet 07/15/16 11/10/16 08/12/16 Rx Aspirin EC [Aspirin Enteric Coated 325 mg PO DAILY 08/13/16 11/11/16 11/10/16 History TAB] Clopidogrel Bisulfate [Plavix] 75 mg PO DAILY 08/13/16 11/11/16 11/10/16 History Nitroglycerin [place] [Nitromist] 1 spray TL PRN PRN 08/19/16 11/10/16 Unknown History Nitroglycerin [Nitrostat] 0.4 mg SL Q5M PRN 08/19/16 11/10/16 Unknown History Amoxicillin [Trimox CAP] 500 mg PO Q8H 11/10/16 11/11/16 11/10/16 History Ibuprofen [Motrin] 800 mg PO Q8HR PRN 11/10/16 11/11/16 11/10/16 History Losartan [Cozaar] 25 mg PO QDAY 11/10/16 11/11/16 11/11/16 History Metoprolol [Lopressor TAB] 50 mg PO DAILY 11/10/16 11/11/16 11/11/16 History Oxycodone HCl/Acetaminophen 1 each PO Q6HR PRN 11/10/16 11/11/16 11/11/16 History [Percocet 10/325 mg] amLODIPine [Norvasc] 5 mg PO DAILY 11/10/16 11/11/16 11/11/16 History oxyCODONE [Roxicodone] 5 mg PO Q6HR PRN 11/10/16 11/11/16 10/07/16 History Ibuprofen [Motrin] 600 mg PO Q8H PRN #30 tablet 11/12/16 Unknown Rx oxyCODONE /ACETAMINOPHEN [Percocet 1 tab PO Q6HR PRN #30 tablet 11/12/16 Unknown Rx 5/325] ED Physical Exam - General Limitations: No Limitations - Other Other exam information: General: No limitations, patient is alert in no acute distress Head exam: Atraumatic, normocephalic Eyes exam: Normal appearance, pupils equal reactive to light, extraocular movements intact, no gross visual field defect ENT: Moist mucous membrane, normal oropharynx Neck exam: Normal inspection, full range of motion, no meningismus nontender Respiratory exam: Clear to auscultation bilateral, no wheezes, rales, crackles. reproducible left upper chest wall tenderness Cardiovascular: Normal rate and rhythm, normal heart sounds Abdomen: Soft, nondistended, and nontender, with normal bowel sounds, no rebound, or guarding Extremity: Full range of motion normal inspection no deformity, no calf tenderness/edema Back: Normal Inspection, full range of motion, no tenderness Neurologic: Alert, oriented x3, cranial nerves intact, no motor or sensory deficit, finger nose finger intact, Psychiatric: normal affect, normal mood Skin: Warm, dry, intact ED Course Vital Signs 06/01/17 06/01/17 06/01/17 20:42 20:45 21:00 Pulse Rate 96 H Respiratory 19 Rate Blood Pressure 133/96 125/87 125/87 06/01/17 06/01/17 06/01/17 21:02 21:10 21:15 Pulse Rate 96 H 96 H 82 Respiratory 18 18 12 Rate Blood Pressure 125/87 109/80 06/01/17 06/01/17 06/01/17 21:30 21:45 22:19 Pulse Rate 93 H 84 Respiratory 9 L 12 18 Rate Blood Pressure 122/92 123/86 - Reevaluation(s) Reevaluation #1: 06/02/17 00:23 pt stable, given morphine and zofran for pain ED Medical Decision Making - Lab Data Result diagrams: 06/01/17 21:43 06/01/17 21:43 Lab Results 06/01/17 06/01/17 06/01/17 Range/Units 21:24 21:43 21:43 WBC 10.2 (4.5-11.0) K/mm3 RBC 4.68 (3.65-5.03) M/mm3 Hgb 14.4 H (10.1-14.3) gm/dl Hct 42.0 (30.3-42.9) % MCV 90 (79-97) fl MCH 31 (28-32) pg MCHC 34 (30-34) % RDW 13.5 (13.2-15.2) % Plt Count 234 (140-440) K/mm3 Lymph % (Auto) 23.3 (13.4-35.0) % Johnston % (Auto) 5.5 (0.0-7.3) % Eos % (Auto) 1.2 (0.0-4.3) % Baso % (Auto) 0.6 (0.0-1.8) % Lymph # 2.4 (1.2-5.4) K/mm3 Johnston # 0.6 (0.0-0.8) K/mm3 Eos # 0.1 (0.0-0.4) K/mm3 Baso # 0.1 (0.0-0.1) K/mm3 Seg Neutrophils % 69.4 (40.0-70.0) % Seg Neutrophils # 7.1 (1.8-7.7) K/mm3 PT (12.2-14.9) Sec. INR (0.87-1.13) D-Dimer (0-234) ng/mlDDU Sodium 137 (137-145) mmol/L Potassium 4.0 (3.6-5.0) mmol/L Chloride 96.8 L (98-107) mmol/L Carbon Dioxide 25 (22-30) mmol/L Anion Gap 19 mmol/L BUN 15 (7-17) mg/dL Creatinine 0.5 L (0.7-1.2) mg/dL Estimated GFR > 60 ml/min BUN/Creatinine Ratio 30 % Glucose 236 H (65-100) mg/dL POC Glucose 212 H (70-105) Calcium 9.9 (8.4-10.2) mg/dL Troponin T < 0.010 (0.00-0.029) ng/mL 06/01/ Range/Units 21:43 WBC (4.5-11.0) K/mm3 RBC (3.65-5.03) M/mm3 Hgb (10.1-14.3) gm/dl Hct (30.3-42.9) % MCV (79-97) fl MCH (28-32) pg MCHC (30-34) % RDW (13.2-15.2) % Plt Count (140-440) K/mm3 Lymph % (Auto) (13.4-35.0) % Johnston % (Auto) (0.0-7.3) % Eos % (Auto) (0.0-4.3) % Baso % (Auto) (0.0-1.8) % Lymph # (1.2-5.4) K/mm3 Johnston # (0.0-0.8) K/mm3 Eos # (0.0-0.4) K/mm3 Baso # (0.0-0.1) K/mm3 Seg Neutrophils % (40.0-70.0) % Seg Neutrophils # (1.8-7.7) K/mm3 PT 13.0 (12.2-14.9) Sec. INR 0.94 (0.87-1.13) D-Dimer 140.69 (0-234) ng/mlDDU Sodium (137-145) mmol/L Potassium (3.6-5.0) mmol/L Chloride (98-107) mmol/L Carbon Dioxide (22-30) mmol/L Anion Gap mmol/L BUN (7-17) mg/dL Creatinine (0.7-1.2) mg/dL Estimated GFR ml/min BUN/Creatinine Ratio % Glucose (65-100) mg/dL POC Glucose (70-105) Calcium (8.4-10.2) mg/dL Troponin T (0.00-0.029) ng/mL - EKG Data -: EKG Interpreted by Me (old anteroseptal infarct) EKG shows normal: sinus rhythm, axis (-11), QRS complexes (84), ST-T waves (no stemi/t inv) Rate: normal (81) - EKG Data When compared to previous EKG there are: no significant change (compared to 08/19) - Radiology Data Radiology results: report reviewed, image reviewed (chest x-ray: naf) ct head: old right parietal and left occiptial lobe infracta. No interval change - Medical Decision Making D-dimer negative. Imaging studies unremarkable. Labs unremarkable. EKG unchanged. Repeat troponin pending. Given patient's extensive cardiac history patient be admitted to the hospital for further observation secondary syncope. - Differential Diagnosis anemia, IN, unstable angina, PE, ICH, CVA, vasovagal, hypoglycemia Critical Care Time: No Critical care attestation.: If time is entered above; I have spent that time in minutes in the direct care of this critically ill patient, excluding procedure time. ED Disposition Clinical Impression: Lupus, H/O heart artery stent, Syncope, Diabetes, Chest wall pain Disposition: OP ADMIT IP TO THIS HOSP Is pt being admited?: Yes Condition: Stable Time of Disposition: 00:23 (DR Longo/hosp)
--- NOTE | 2017-06-02 00:38 | History and Physical Report ---
History of Present Illness Chief complaint: My chest hurts, and then i passed out. History of present illness: 47 YO Female with HTN, CVA, DM, PE Not on anticoagulation, Asthma, HLD, Lupus, GBS, CAD S/P Stent Placement, presents to ED for evaluation. Pt states that she has been "feeling funny" for the past for the past 1 day with acutely worsening symptoms 2 hours prior to presentation. Pt states that she expeirienced left arm pain and subsequently got dizzy and passed out. Pt also acknowledges pain in her chest prior to syncopal episode. Pt states that pain is 6/10, substernal , not worsened with exertion or relieved with rest, is associated with diaphoresis and loss of consciousness. EMS was called, and patient only recalls waking up with EMS staff conducting a sternal rub. Patient denies fever, chills, CP, Palpitations, NVD, productive cough, recent ill contacts, BRBPR, Hemoptysis, leg swelling, calf pain, trauma, loss of bowel/bladder continence, vertigo, or seizures. Pt seen and evaluated in ED and found to have symptoms consistent with ACS, and initiated with pain control with morphine, supplemental oxygen, nebulizer therapy, nitro tabs, aspirin. Past History Past Medical History: CAD, diabetes, hypertension, hyperlipidemia, pulmonary embolism, stroke, other (SLE, GBS) Past Surgical History: , Other (Back surgery, tubal ligation, ) Social history: single. denies: smoking, alcohol abuse, prescription drug abuse Family history: diabetes, hypertension Medications and Allergies Allergies Allergy/AdvReac Type Severity Reaction Status Date / Time No Known Allergies Allergy Verified 11/10/16 13:47 Home Medications Medication Instructions Recorded Confirmed Last Taken Type Insulin Regular, Human [HumuLIN R] See Protocol SQ ACHS 03/27/16 06/02/17 History Ipratropium/Albuter (Nf) 2 puff IH QID #1 inha 03/28/16 06/02/17 11/11/16 Rx [Combivent Inhaler] Metformin HCl [Glucophage] 1,000 mg PO BID #60 tablet 03/28/16 06/02/17 Rx ALBUTEROL Inhaler [ProAir HFA 2 puff IH QID PRN #1 inha 07/15/16 06/02/17 Rx Inhaler] Atorvastatin Calcium [Lipitor] 40 mg PO QHS #30 tab 07/15/16 06/02/17 11/10/16 Rx Budesonide [Pulmicort Respules] 1 mg IH BIDRT #14 nebu 07/15/16 06/02/17 Rx Aspirin EC [Aspirin Enteric Coated 325 mg PO DAILY 08/13/16 06/02/17 11/10/16 History TAB] Clopidogrel Bisulfate [Plavix] 75 mg PO DAILY 08/13/16 06/02/17 11/10/16 History Nitroglycerin [place] [Nitromist] 1 spray TL PRN PRN 08/19/16 06/02/17 Unknown History Nitroglycerin [Nitrostat] 0.4 mg SL Q5M PRN 08/19/16 06/02/17 Unknown History Losartan [Cozaar] 25 mg PO QDAY 11/10/16 06/02/17 11/11/16 History Metoprolol [Lopressor TAB] 50 mg PO DAILY 11/10/16 06/02/17 11/11/16 History amLODIPine [Norvasc] 5 mg PO DAILY 11/10/16 06/02/17 11/11/16 History ALPRAZolam [Xanax TAB] 0.5 mg PO BID 06/02/17 06/02/17 Unknown History Baclofen [Lioresal] 2 tab PO BID 06/02/17 06/02/17 Unknown History Insulin Glargine [Lantus VIAL] 20 unit SUB-Q QHS 06/02/17 06/02/17 Unknown History Review of Systems Constitutional: no weight loss, no weight gain, no fever, no chills Ears, nose, mouth and throat: no ear pain, no ear discharge, no tinnitis, no decreased hearing, no nose pain, no nasal congestion, no nasal discharge Breasts: no change in shape, no swelling, no mass Cardiovascular: chest pain, syncope, no orthopnea, no palpitations, no rapid/ irregular heart beat, no dyspnea on exertion, no high blood pressure, no leg edema Respiratory: no cough, no cough with sputum, no excessive sputum, no hemoptysis Gastrointestinal: no nausea, no vomiting, no diarrhea, no constipation Genitourinary Female: no pelvic pain, no flank pain, no menorrhagia, no dysuria , no urinary frequency Rectal: no pain, no incontinence, no bleeding Musculoskeletal: no neck stiffness, no neck pain, no arm numbness/tingling, no low back pain, no shooting leg pain, no leg numbness/tingling Integumentary: no rash, no pruritis, no redness, no sores, no wounds, no jaundice Neurological: no transient paralysis, no paralysis, no weakness, no parathesias , no numbness, no tingling, no seizures, no syncope Psychiatric: no anxiety, no memory loss, no change in sleep habits, no sleep disturbances, no insomnia, no hypersomnia, no change in appetite, no change in libido Endocrine: polyphagia, polydipsia, polyuria, no cold intolerance, no heat intolerance Hematologic/Lymphatic: no easy bruising, no easy bleeding Allergic/Immunologic: no urticaria, no allergic rhinitis, no wheezing Exam - Constitutional Vitals: Temp Pulse Resp BP Pulse Ox 84 18 123/86 06/01/17 21:45 06/01/17 22:19 06/01/17 21:45 General appearance: Present: mild distress - EENT Eyes: Present: PERRL ENT: hearing intact, clear oral mucosa - Neck Neck: Present: supple, normal ROM - Respiratory Respiratory effort: normal Respiratory: bilateral: CTA - Cardiovascular Heart Sounds: Present: S1 & S2. Absent: rub, click - Extremities Extremities: pulses symmetrical, No edema Peripheral Pulses: within normal limits - Abdominal General gastrointestinal: Present: soft, non-tender, non-distended, normal bowel sounds Female genitourinary: Present: normal - Rectal Rectal Exam: normal rectal tone - Integumentary Integumentary: Present: clear, warm, dry - Musculoskeletal Musculoskeletal: gait normal, strength equal bilaterally - Psychiatric Psychiatric: appropriate mood/affect, intact judgment & insight - Neurologic Neurologic: CNII-XII intact, moves all extremities Results - Labs CBC & Chem 7: 06/01/17 21:43 06/01/17 21:43 Labs: Abnormal lab results 06/01/17 06/01/17 06/01/17 Range/Units 21:24 21:43 21:43 Hgb 14.4 H (10.1-14.3) gm/dl Chloride 96.8 L (98-107) mmol/L Creatinine 0.5 L (0.7-1.2) mg/dL Glucose 236 H (65-100) mg/dL POC Glucose 212 H (70-105) Assessment and Plan - Patient Problems (1) ACS (acute coronary syndrome) Current Visit: Yes Status: Acute Plan to address problem: Serial cardiac enzymes, ekg, telemetry, cardiology consulted, supplemental oxygen, nitro tabs, pain control with morphine, aspirin, (2) Unconscious state Current Visit: Yes Status: Acute Plan to address problem: CT head, neuro checks, supportive care, (3) SLE (systemic lupus erythematosus) Current Visit: Yes Status: Acute Qualifiers: Systemic lupus erythematosus type: unspecified Plan to address problem: continue medical management, No exacerbation at this time. (4) CAD (coronary artery disease) Current Visit: No Status: Chronic Qualifiers: Coronary Disease-Associated Artery/Lesion type: osage artery Associated angina: without angina Plan to address problem: Statin therapy, antiplatelet therapy, lipid panel, supportive care. (5) DVT prophylaxis Current Visit: Yes Status: Acute
[2017-06-02] MEDS ORDERED: DULCOLAX PR PRN (00:44)
[2017-06-02] MEDS ORDERED: BABY ASPIRIN PO STA (00:44)
[2017-06-02] MEDS ORDERED: NITROSTAT SL PRN ×2 (00:44→12:25)
[2017-06-02] MEDS ORDERED: MILK OF MAGNESIA PO PRN (00:44)
[2017-06-02] MEDS ORDERED: PROVENTIL IH PRN ×2 (00:44→12:35)
[2017-06-02] MEDS ORDERED: TYLENOL PO PRN (00:44)
[2017-06-02] MEDS ORDERED: SODIUM CHLORIDE FLUSH SYRINGE 10 ML IV PRN (00:44)
[2017-06-02] MEDS ORDERED: ZOFRAN IV PRN (00:44)
[2017-06-02] MEDS ORDERED: MORPHINE ONE (02:15)
[2017-06-02] MEDS ORDERED: BABY ASPIRIN ONE (02:16)
[2017-06-02] MEDS: MORPHINE IV PRN ×5 (02:29→22:31)
--- NOTE | 2017-06-02 11:08 | XRay Report ---
FINAL REPORT EXAM: XR CHEST 1V AP HISTORY: cp TECHNIQUE: An upright view of the chest was submitted. FINDINGS: The heart size and mediastinum appear normal. The lungs are clear. Pleural fluid is not seen. The bones and soft tissues do not show any acute changes. IMPRESSION: No active chest disease.
[2017-06-02] MEDS ORDERED: Fluarix Quad 2017-2018(36 MOS+ IM ONE (12:00)
[2017-06-02] MEDS ORDERED: PROAIR IH PRN (12:25)
--- NOTE | 2017-06-02 12:32 | Event Note ---
Date: 06/02/17 Patient Seen and examined, medical records reviewed Admitted with chest pain and syncope, reviewed the treatment plan Follow cardio nuviaaln, agree with the current management Closely monitor, plan of care discussed with the patient
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
[2017-06-02] MEDS: PEPCID PO SCH ×2 (12:48→22:16)
[2017-06-02] MEDS ORDERED: D50W (25GM) Syringe IV PRN (16:47)
[2017-06-02 19:57] LABS: Bacteria,Urine 1+ /HPF (Negative); Bilirubin,Urine NEG (Negative); Blood,Urine NEG (Negative); Ketones,Urine NEG (Negative); Leukocyte Esterase,Urine NEG (Negative); Mucus,Urine FEW /HPF; Nitrite,Urine NEG (Negative); Protein,Urine <15 mg/dL mg/dL (Negative); Urobilinogen,Urine < 2.0 mg/dL (<2.0)
[2017-06-02] MEDS: PULMICORT IH SCH (20:35)
[2017-06-02] MEDS ORDERED: NON-FORMULARY (Insulin Glargine 20 UNIT) SUB-Q SCH (22:00)
[2017-06-02] MEDS: XANAX PO SCH (22:16)
[2017-06-02] MEDS: LIORESAL PO SCH (22:16)
[2017-06-02] MEDS: LEVEMIR SUB-Q SCH (22:17)
--- NOTE | 2017-06-02 22:23 | Cat Scan Report ---
FINAL REPORT PROCEDURE: CT head without contrast. TECHNIQUE: Computerized tomography of the head was performed without contrast material. HISTORY: Syncope. COMPARISON: CT head 08/19/2016. Dictation not available. FINDINGS: The ventricles are normal in size. There is a focal area of encephalomalacia involving the medial portion of the left occipital lobe. There is also focal encephalomalacia involving the right parietal lobe. These areas are unchanged from the previous study. They are consistent with prior infarcts. There are no mass lesions. There is no intracranial hemorrhage. The calvarium appears intact. The mastoid air cells and paranasal sinuses are clear as far as visualized. IMPRESSION: Old right parietal and left occipital lobe infarcts. No interval change.
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
[2017-06-03] MEDS: PULMICORT IH SCH ×2 (08:48→21:38)
[2017-06-03] MEDS: MORPHINE IV PRN ×5 (09:31→23:18)
[2017-06-03] MEDS: PLAVIX PO SCH (10:30)
[2017-06-03] MEDS: LIORESAL PO SCH ×2 (10:31→21:51)
[2017-06-03] MEDS: ECOTRIN PO SCH (10:31)
[2017-06-03] MEDS: XANAX PO SCH ×2 (10:31→21:51)
[2017-06-03] MEDS: PEPCID PO SCH ×2 (10:31→21:51)
[2017-06-03] MEDS: LOPRESSOR PO SCH (10:36)
[2017-06-03] MEDS: NORVASC PO SCH (10:37)
[2017-06-03] MEDS: COZAAR PO SCH (10:37)
[2017-06-03] MEDS ORDERED: LEXISCAN IV ONE (12:00)
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
--- NOTE | 2017-06-03 15:22 | Event Note ---
Date: 06/03/17 Lexiscan MPI stress test shows partially reversible apical defect. Coronary angiography recommended for definitive diagnosis. Indications, potential risks and benefits of LHC reviewed with pt and she is agreeable to proceed. Consents obtained. Will plan for LHC in AM. NPO after MN. Rudi FERRELL NP / DR. ARELIS KEY
[2017-06-03] MEDS ORDERED: NACL 0.9% 500 ML 500 ML IV SCH (16:00)
[2017-06-03] MEDS ORDERED: LEVAQUIN PO SCH (16:00)
--- NOTE | 2017-06-03 18:31 | Progress Note ---
Assessment and Plan Assessment and plan: --Acute Coronary syndrome; continue current cardiac medications Abnormal stress test, heart cath tomorrow, cardiology following --Coronary artery disease status post multiple stents, continue current cardiac medications --Syncope; vasovagal , autonomic imbalance No new episodes since admission, follow syncope workup, fall precautions --Type 2 diabetes mellitus; Accu-Chek sliding scale coverage and ADA diet and insulin -- hypertension; moderate control, continue current antihypertensives and when necessary medications --History of SLE; stable --Dyslipidemia; continue lipid-lowering medications --DVT prophylaxis; Lovenox Follow heart cath tomorrow, if negative and if patient is stable possible discharge in 1-2 days Consults and recommendations noted appreciated History Interval history: Patient had an abnormal stress test today Cardiology planning heart cath tomorrow Vital signs reviewed Hospitalist Physical - Constitutional Vitals: Temp Pulse Resp BP Pulse Ox 98.8 F 74 20 111/72 98 06/03/17 16:00 06/03/17 16:00 06/03/17 16:00 06/03/17 16:00 06/03/17 14:31 General appearance: Present: no acute distress, well-nourished - EENT Eyes: Present: PERRL, EOM intact - Neck Neck: Present: supple, normal ROM - Respiratory Respiratory effort: normal Respiratory: bilateral: diminished, negative: rales, rhonchi, wheezing - Cardiovascular Rhythm: regular Heart Sounds: Present: S1 & S2 - Extremities Extremities: no ischemia, No edema - Abdominal General gastrointestinal: soft, non-tender, non-distended, normal bowel sounds - Integumentary Integumentary: Present: clear, warm - Psychiatric Psychiatric: appropriate mood/affect, cooperative - Neurologic Neurologic: CNII-XII intact, moves all extremities Results - Labs CBC & Chem 7: 06/01/17 21:43 06/01/17 21:43 Labs: Laboratory Last Values WBC 10.2 K/mm3 (4.5-11.0) 06/01/17 21:43 RBC 4.68 M/mm3 (3.65-5.03) 06/01/17 21:43 Hgb 14.4 gm/dl (10.1-14.3) H 06/01/17 21:43 Hct 42.0 % (30.3-42.9) 06/01/17 21:43 MCV 90 fl (79-97) 06/01/17 21:43 MCH 31 pg (28-32) 06/01/17 21:43 MCHC 34 % (30-34) 06/01/17 21:43 RDW 13.5 % (13.2-15.2) 06/01/17 21:43 Plt Count 234 K/mm3 (140-440) 06/01/17 21:43 Lymph % (Auto) 23.3 % (13.4-35.0) 06/01/17 21:43 [place] % (Auto) 5.5 % (0.0-7.3) 06/01/17 21:43 Eos % (Auto) 1.2 % (0.0-4.3) 06/01/17 21:43 Baso % (Auto) 0.6 % (0.0-1.8) 06/01/17 21:43 Lymph # 2.4 K/mm3 (1.2-5.4) 06/01/17 21:43 [place] # 0.6 K/mm3 (0.0-0.8) 06/01/17 21:43 Eos # 0.1 K/mm3 (0.0-0.4) 06/01/17 21:43 Baso # 0.1 K/mm3 (0.0-0.1) 06/01/17 21:43 Seg Neutrophils % 69.4 % (40.0-70.0) 06/01/17 21:43 Seg Neutrophils # 7.1 K/mm3 (1.8-7.7) 06/01/17 21:43 PT 13.0 Sec. (12.2-14.9) 06/01/17 21:43 INR 0.94 (0.87-1.13) 06/01/17 21:43 D-Dimer 140.69 ng/mlDDU (0-234) 06/01/17 21:43 Sodium 137 mmol/L (137-145) 06/01/17 21:43 Potassium 4.0 mmol/L (3.6-5.0) 06/01/17 21:43 Chloride 96.8 mmol/L (98-107) L 06/01/17 21:43 Carbon Dioxide 25 mmol/L (22-30) 06/01/17 21:43 Anion Gap 19 mmol/L 06/01/17 21:43 BUN 15 mg/dL (7-17) 06/01/17 21:43 Creatinine 0.5 mg/dL (0.7-1.2) L 06/01/17 21:43 Estimated GFR > 60 ml/min 06/01/17 21:43 BUN/Creatinine Ratio 30 % 06/01/17 21:43 Glucose 236 mg/dL (65-100) H 06/01/17 21:43 POC Glucose 168 (70-105) H 06/03/17 15:44 Calcium 9.9 mg/dL (8.4-10.2) 06/01/17 21:43 Troponin T < 0.010 ng/mL (0.00-0.029) 06/02/17 03:51 Urine Color Yellow (Yellow) 06/02/17 19:30 Urine Turbidity Clear (Clear) 06/02/17 19:30 Urine pH 6.0 (5.0-7.0) 06/02/17 19:30 Ur Specific [place] 1.013 (1.003-1.030) 06/02/17 19:30 Urine Protein <15 mg/dl mg/dL (Negative) 06/02/17 19:30 Urine Glucose (UA) Neg mg/dL (Negative) 06/02/17 19:30 Urine Ketones Neg mg/dL (Negative) 06/02/17 19:30 Urine Blood Neg (Negative) 06/02/17 19:30 Urine Nitrite Neg (Negative) 06/02/17 19:30 Urine Bilirubin Neg (Negative) 06/02/17 19:30 Urine Urobilinogen < 2.0 mg/dL (<2.0) 06/02/17 19:30 Ur Leukocyte Esterase Neg (Negative) 06/02/17 19:30 Urine WBC (Auto) 1.0 /HPF (0.0-6.0) 06/02/17 19:30 Urine RBC (Auto) 2.0 /HPF (0.0-6.0) 06/02/17 19:30 U Epithel Cells (Auto) 2.0 /HPF (0-13.0) 06/02/17 19:30 Urine Bacteria (Auto) 1+ /HPF (Negative) 06/02/17 19:30 Urine Mucus Few /HPF 06/02/17 19:30
[2017-06-03] MEDS: LEVEMIR SUB-Q SCH (23:20)
[2017-06-04] MEDS: MORPHINE IV PRN ×5 (05:14→22:34)
[2017-06-04 05:49] LABS: Basophils % (Auto) 0.6 % (0.0-1.8); Eosinophils % (Auto) 2.7 % (0.0-4.3); Hematocrit 40.7 % (30.3-42.9); Mean Corpuscular HGB Conc 34 % (30-34); Mean Corpuscular Hemoglobin 32 pg (28-32); Mean Corpuscular Volume 92 fl (79-97); Platelet Count 200 K/mm3 (140-440); Red Blood Count 4.43 M/mm3 (3.65-5.03); Red Cell Distribution Width 13.2 % (13.2-15.2); White Blood Count 6.7 K/mm3 (4.5-11.0)
[2017-06-04 05:58] LABS: Anion Gap 17 mmol/L; BUN/Creatinine Ratio 32; Blood Urea Nitrogen 16 mg/dL (7-17); Calcium 9.4 mg/dL (8.4-10.2); Carbon Dioxide 30 mmol/L (22-30); Chloride 100.5 mmol/L (98-107); Glucose 165 mg/dL (65-100); Sodium 142 mmol/L (137-145)
[2017-06-04 06:00] LABS: INR 1.12 (0.87-1.13); Partial Thromboplastin Time 26.9 Sec. (24.2-36.6)
[2017-06-04] MEDS ORDERED: NACL 0.9% 500 ML 500 ML IV SCH (06:00)
[2017-06-04] MEDS ORDERED: XYLOCAINE 2% INFILTRATI ONE (06:57)
[2017-06-04] MEDS ORDERED: HEPARIN/NS 5000 UNIT/500ML(CATH LAB) 1,000 ML IR ONE (06:57)
[2017-06-04] MEDS ORDERED: CALAN ONE (06:57)
[2017-06-04] MEDS ORDERED: HEPARIN 10,000 UNITS/10 ML ONE (06:57)
[2017-06-04] MEDS ORDERED: NITROGLYCERIN SYRINGE 3 ML ONE (06:57)
[2017-06-04] MEDS ORDERED: VERSED ONE (06:58)
[2017-06-04] MEDS ORDERED: SUBLIMAZE ONE (06:58)
[2017-06-04] MEDS ORDERED: NACL 0.9% 0 ML ONE (06:58)
[2017-06-04] MEDS ORDERED: ANGIOMAX IV ONE (06:58)
--- NOTE | 2017-06-04 08:55 | Cardiac Catherization Report ---
CARDIAC CATHETERIZATION REFERRING PHYSICIAN: Mat Longo M.D. PRIMARY SOCIAL SERVICE TECHNICIAN: Reji Hector M.D. INDICATION FOR PROCEDURE: The patient is a very pleasant 47-year-old female with aggressive coronary artery disease and multiple PCIs, presents with unstable angina, abnormal stress test, referred for left heart catheterization. Risks, benefits, and potential alternatives explained at length prior to obtaining informed consent. PROCEDURE IN DETAIL: The patient was brought to catheterization lab in a postabsorptive state, prepped and draped in a sterile fashion. She had a failed Reed's radial approach for the last 2 caths, we will proceed with a groin approach. A 8 mL of 2% lidocaine used to anesthetize the right groin. A standard 6 Sami sheath used to cannulate the right common femoral artery via modified Seldinger technique. All exchanges performed to exchange a J-tip guidewire. JR4 catheter used to engage left main. No dampening or ventricularization. Cineangiography performed in all projections. JR4 catheter used to cross the aortic valve under fluoroscopic guidance. Left ventriculography performed in 30 SINGH and 30 TELUGU projections via hand injections. Catheter flushed. Manual pullback performed with continuous pressure monitoring. Catheter used to engage the right coronary. No dampening or ventricularization. Cineangiography performed in all projections. CORONARY ANATOMY: This is a right dominant system. Right coronary is a small to medium size vessel, tortuous calcified stents in the proximal right coronary are widely patent, 25% mid right coronary stenosis. No obstructive disease identified. Left main without significant disease, bifurcates in left anterior descending and left circumflex. The left circumflex is a moderate sized vessel, courses AV groove. Stent in the proximal left circumflex is patent. A 25-30% stenosis in the mid left circumflex, no obstructive disease identified. LAD is a smallish vessel. Patent stent in the proximal LAD, approximately 30-40% proximal LAD stenosis. This is a small vessel throughout. Stent in the first diagonal are patent. Stents in the mid LAD are patent. Chronic total occlusion of the distal first diagonal with excellent left to left collaterals, moderate small vessel disease noted diffusely. Left ventricular systolic performance is normal. Estimated ejection fraction of 55% -60%. No aortic stenosis. CONCLUSIONS: 1. Epicardial coronaries as aforementioned. Patent stents in the proximal right coronary, 25% mid right coronary stenosis, lot known chronic total occlusion of distal first diagonal with excellent left to left collaterals, patent stents in the proximal LAD and first diagonal, diffuse distal small vessel disease, 30-40% proximal LAD. 2.Normal left ventricular systolic performance, estimated ejection fraction of 55-60% with normal LVEDP. 3.No evidence of aortic stenosis. These findings are unchanged from final imaging after PCI of first diagonal in August 2016, essentially unchanged. The disease needs aggressive primary and secondary prevention measures. Results of procedure explained to the patient and family. All questions and concerns were addressed. We will try to address the Ranexa issue but cost is an issue. Continue dual antiplatelet therapy, statin therapy. States that she recently quit smoking, which is excellent first step. Follow up with Dr. Hector in the office. Standard groin care. She is clinically stable at this point. JOB# [id number] PABLO/YOANNA
[2017-06-04] MEDS: PLAVIX PO SCH (10:21)
[2017-06-04] MEDS: ECOTRIN PO SCH (10:21)
[2017-06-04] MEDS: LOPRESSOR PO SCH (10:21)
[2017-06-04] MEDS: LIORESAL PO SCH ×2 (10:22→22:35)
[2017-06-04] MEDS: XANAX PO SCH ×2 (10:22→22:35)
[2017-06-04] MEDS: NORVASC PO SCH (10:22)
[2017-06-04] MEDS: COZAAR PO SCH (10:22)
[2017-06-04] MEDS: PEPCID PO SCH ×2 (10:26→22:36)
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
--- NOTE | 2017-06-04 13:48 | Discharge Summary ---
Providers - Providers Date of Admission: 06/02/17 00:44 Date of discharge: 06/04/17 Attending physician: MARGO MARIA 06/02/17 Consult to Cardiac Rehabilitation [CONS] Routine Reason For Exam: Phase I 06/02/17 00:44 Consult to Physician [CONS] Routine Consulting Provider: MARA PACHECO Reason For Exam: acs Place consult to:: [email or web address] Notified:: y Comment:: added to list 06/02/17 14:11 Physical Therapy Evaluation and Treat [CONS] Routine Comment: Reason For Exam: eval for discharge needs 06/02/17 16:48 Consult to Dietitian/Nutrition [CONS] Routine Physician Instructions: Reason For Exam: Reason for Consult: Diet education 06/04/17 10:48 Consult to Cardiac Rehabilitation [CONS] Routine Reason For Exam: Cardiac Rehab Evaluation Primary care physician: [facility] REPRESENTATIVE Hospitalization Condition: Stable Disposition: DC-30 STILL A PATIENT Exam - Constitutional Vitals: Temp Pulse Resp BP Pulse Ox 98.6 F 67 16 116/75 97 06/04/17 11:27 06/04/17 11:27 06/04/17 11:27 06/04/17 11:27 06/04/17 11:27 Plan Activity: no restrictions Diet: diabetic, other (Cardiac diet) Special Instructions: hold Metformin ( resume on 06/06/17) Additional Inst[facility] [place] [facility] Singh on 06/22/2017 @ 8:45AM. hold Metformin, resume after 2 days on 06/06/17 Follow up with: CARYN BREAUX MD [Primary Care Provider] - 7 Days JULI SINGH MD [Staff Physician] - 7 Days Prescriptions: Docusate Sodium [Colace] 100 mg PO BID PRN #20 capsule PRN Reason: Constipation Famotidine [Pepcid] 20 mg PO BID #30 tablet Hypromellose [Isopto Tears 0.5%] 2 drops OU TID #1 bottle
[2017-06-04] MEDS: PULMICORT IH SCH ×2 (15:19→20:21)
--- NOTE | 2017-06-04 16:47 | Progress Note ---
Assessment and Plan Assessment and plan: s/p [facility] this AM which showed patent stents, chronic total occlusion of distal first diagonal with excellent collaterals, normal LV systolic performance, EF 55 -60%. --Acute Coronary syndrome; continue current cardiac medications Heart Catheterization No acute abnormality --Persistent intermittent chest pain reported by the patient; will discuss with cardiology, add Ranexa --Coronary artery disease status post multiple stents, continue current cardiac medications --Syncope; vasovagal , autonomic imbalance No new episodes since admission, follow syncope workup, fall precautions --Type 2 diabetes mellitus; Accu-Chek sliding scale coverage and ADA diet and insulin -- hypertension; moderate control, continue current antihypertensives and when necessary medications --History of SLE; stable --Dyslipidemia; continue lipid-lowering medications --DVT prophylaxis; Lovenox I discussed her plan of care with the senior systems developer Dr.Siva Hernandez Hold the discharge, closely monitor the patient overnight, if patient is stable for discharge home tomorrow Plan of care discussed with the patient's daughter, her nurse and the charge nurse History Interval history: Patient seen and examined this morning medical records reviewed s/p [facility] this AM which showed patent stents, chronic total occlusion of distal first diagonal with excellent collaterals, normal LV systolic performance, EF 55-60%. Cardiology cleared for discharge, however patient complains of continued intermittent chest pain Multiple family members at the bedside Denies shortness of breath no nausea or vomiting vital signs reviewed Hospitalist Physical - Constitutional Vitals: Temp Pulse Resp BP Pulse Ox 98.6 F 67 16 116/75 97 06/04/17 11:27 06/04/17 11:27 06/04/17 11:27 06/04/17 11:27 06/04/17 11:27 General appearance: Present: no acute distress, well-nourished - EENT Eyes: Present: PERRL, EOM intact - Neck Neck: Present: supple, normal ROM - Respiratory Respiratory effort: normal Respiratory: bilateral: diminished, negative: rales, rhonchi, wheezing - Cardiovascular Rhythm: regular Heart Sounds: Present: S1 & S2 - Extremities Extremities: no ischemia, No edema - Abdominal General gastrointestinal: soft, non-tender, non-distended, normal bowel sounds - Integumentary Integumentary: Present: clear, warm - Psychiatric Psychiatric: appropriate mood/affect, cooperative - Neurologic Neurologic: CNII-XII intact, moves all extremities Results - Labs CBC & Chem 7: 06/04/17 04:52 06/04/17 04:52 Labs: Laboratory Last Values WBC 6.7 K/mm3 (4.5-11.0) 06/04/17 04:52 RBC 4.43 M/mm3 (3.65-5.03) 06/04/17 04:52 Hgb 14.0 gm/dl (10.1-14.3) 06/04/17 04:52 Hct 40.7 % (30.3-42.9) 06/04/17 04:52 MCV 92 fl (79-97) 06/04/17 04:52 MCH 32 pg (28-32) 06/04/17 04:52 MCHC 34 % (30-34) 06/04/17 04:52 RDW 13.2 % (13.2-15.2) 06/04/17 04:52 Plt Count 200 K/mm3 (140-440) 06/04/17 04:52 Lymph % (Auto) 33.8 % (13.4-35.0) 06/04/17 04:52 [place] % (Auto) 7.4 % (0.0-7.3) H 06/04/17 04:52 Eos % (Auto) 2.7 % (0.0-4.3) 06/04/17 04:52 Baso % (Auto) 0.6 % (0.0-1.8) 06/04/17 04:52 Lymph # 2.3 K/mm3 (1.2-5.4) 06/04/17 04:52 [place] # 0.5 K/mm3 (0.0-0.8) 06/04/17 04:52 Eos # 0.2 K/mm3 (0.0-0.4) 06/04/17 04:52 Baso # 0.0 K/mm3 (0.0-0.1) 06/04/17 04:52 Seg Neutrophils % 55.5 % (40.0-70.0) 06/04/17 04:52 Seg Neutrophils # 3.7 K/mm3 (1.8-7.7) 06/04/17 04:52 PT 15.0 Sec. (12.2-14.9) H 06/04/17 04:52 INR 1.12 (0.87-1.13) 06/04/17 04:52 APTT 26.9 Sec. (24.2-36.6) 06/04/17 04:52 D-Dimer 140.69 ng/mlDDU (0-234) 06/01/17 21:43 Sodium 142 mmol/L (137-145) 06/04/17 04:52 Potassium 5.0 mmol/L (3.6-5.0) D 06/04/17 04:52 Chloride 100.5 mmol/L (98-107) 06/04/17 04:52 Carbon Dioxide 30 mmol/L (22-30) 06/04/17 04:52 Anion Gap 17 mmol/L 06/04/17 04:52 BUN 16 mg/dL (7-17) 06/04/17 04:52 Creatinine 0.5 mg/dL (0.7-1.2) L 06/04/17 04:52 Estimated GFR > 60 ml/min 06/04/17 04:52 BUN/Creatinine Ratio 32 % 06/04/17 04:52 Glucose 165 mg/dL (65-100) H 06/04/17 04:52 POC Glucose 222 (70-105) H 06/04/17 11:40 Calcium 9.4 mg/dL (8.4-10.2) 06/04/17 04:52 Troponin T < 0.010 ng/mL (0.00-0.029) 06/02/17 03:51 Urine Color Yellow (Yellow) 06/02/17 19:30 Urine Turbidity Clear (Clear) 06/02/17 19:30 Urine pH 6.0 (5.0-7.0) 06/02/17 19:30 Ur Specific [place] 1.013 (1.003-1.030) 06/02/17 19:30 Urine Protein <15 mg/dl mg/dL (Negative) 06/02/17 19:30 Urine Glucose (UA) Neg mg/dL (Negative) 06/02/17 19:30 Urine Ketones Neg mg/dL (Negative) 06/02/17 19:30 Urine Blood Neg (Negative) 06/02/17 19:30 Urine Nitrite Neg (Negative) 06/02/17 19:30 Urine Bilirubin Neg (Negative) 06/02/17 19:30 Urine Urobilinogen < 2.0 mg/dL (<2.0) 06/02/17 19:30 Ur Leukocyte Esterase Neg (Negative) 06/02/17 19:30 Urine WBC (Auto) 1.0 /HPF (0.0-6.0) 06/02/17 19:30 Urine RBC (Auto) 2.0 /HPF (0.0-6.0) 06/02/17 19:30 U Epithel Cells (Auto) 2.0 /HPF (0-13.0) 06/02/17 19:30 Urine Bacteria (Auto) 1+ /HPF (Negative) 06/02/17 19:30 Urine Mucus Few /HPF 06/02/17 19:30
[2017-06-04] MEDS: ISOPTO TEARS 0.5% OU SCH ×2 (17:01→22:32)
[2017-06-04] MEDS: LEVEMIR SUB-Q SCH (22:33)
[2017-06-04] MEDS: RANEXA ER PO SCH (22:36)
--- NOTE | 2017-06-05 00:32 | Treadmill Report ---
CARDIAC CATHETERIZATION REFERRING PHYSICIAN: Hospitalist Service. PROTOCOL: The patient was brought to the stress lab in a postoperative state, given 10 mCi of technetium 99m at rest. The patient underwent rest imaging. The patient underwent Lexiscan stress test per standard protocol. At peak stress, the patient was given 28 mCi of technetium 99m. Shortly thereafter, the patient underwent stress imaging. INTERPRETATION: SPECT imaging examined carefully in the horizontal long axis, vertical long axis, and short axis views. Raw imaging reveals no significant GI artifact or motion artifact. There is a partially reversible moderate sized apical defect, possibly due to ischemia. Gated wall motion reveals mild apical dyskinesis with a calculated ejection fraction of 65%. No TID. CONCLUSIONS: Abnormal myocardial perfusion scan with a partially reversible medium sized apical perfusion defect, possibly consistent with isabel-infarct ischemia. Gated wall motion reveals apical dyskinesis with a calculated ejection fraction of 65%. Clinical correlation is suggested. JOB# [id number] PABLO/YOANNA
[2017-06-05 06:40] LABS: Basophils % (Auto) 0.5 % (0.0-1.8); Eosinophils % (Auto) 2.6 % (0.0-4.3); Hematocrit 40.6 % (30.3-42.9); Hemoglobin 14.1 gm/dl (10.1-14.3); Mean Corpuscular HGB Conc 35 % (30-34); Mean Corpuscular Hemoglobin 32 pg (28-32); Mean Corpuscular Volume 92 fl (79-97); Platelet Count 200 K/mm3 (140-440); Red Blood Count 4.42 M/mm3 (3.65-5.03); Red Cell Distribution Width 13.7 % (13.2-15.2); White Blood Count 7.1 K/mm3 (4.5-11.0)
[2017-06-05 06:58] LABS: Anion Gap 18 mmol/L; BUN/Creatinine Ratio 32; Blood Urea Nitrogen 16 mg/dL (7-17); Calcium 9.1 mg/dL (8.4-10.2); Carbon Dioxide 27 mmol/L (22-30); Chloride 100.1 mmol/L (98-107); Glucose 198 mg/dL (65-100); Potassium 4.9 mmol/L (3.6-5.0); Sodium 140 mmol/L (137-145)
[2017-06-05] MEDS: PULMICORT IH SCH (07:40)
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
[2017-06-05 10:45] VITALS: BP 120/77
[2017-06-05] MEDS: ECOTRIN PO SCH (10:45)
[2017-06-05] MEDS: PLAVIX PO SCH (10:45)
[2017-06-05] MEDS: LIORESAL PO SCH (10:46)
[2017-06-05] MEDS: RANEXA ER PO SCH (10:46)
[2017-06-05] MEDS: XANAX PO SCH (10:46)
[2017-06-05] MEDS: PEPCID PO SCH (10:47)
[2017-06-05] MEDS: LOPRESSOR PO SCH (10:47)
--- NOTE | 2017-06-05 12:45 | Discharge Summary ---
Providers - Providers Date of Admission: 06/02/17 00:44 Date of discharge: 06/05/17 Attending physician: MARGO MARIA 06/02/17 Consult to Cardiac Rehabilitation [CONS] Routine Reason For Exam: Phase I 06/02/17 00:44 Consult to Physician [CONS] Routine Consulting Provider: MARA PACHECO Reason For Exam: acs Place consult to:: [facility] Notified:: y Comment:: added to list 06/02/17 14:11 Physical Therapy Evaluation and Treat [CONS] Routine Comment: Reason For Exam: eval for discharge needs 06/02/17 16:48 Consult to Dietitian/Nutrition [CONS] Routine Physician Instructions: Reason For Exam: Reason for Consult: Diet education 06/04/17 10:48 Consult to Cardiac Rehabilitation [CONS] Routine Reason For Exam: Cardiac Rehab Evaluation Primary care physician: [employer] OPERATOR Hospitalization Reason for admission: Syncope and chest pain Condition: Stable Pertinent studies: Chest x-ray CT head Stress test Cardiac catheterization Hospital course: 47-year-old female patient with multiple medical problems with hypertension and CVA diabetes mellitus and asthma dyslipidemia coronary artery disease status post PCI was admitted through emergency room with chest pain and history of syncopal episode Symptomatically managed evaluated by cardiology Underwent stress test and later left heart catheterization which revealed patent stents However patient continued to have intermittent chest pain, Ranexa added by claim examiner,Symptoms significantly improved He is comfortable in bed no new complaints vital signs are stable, ambulating tolerating oral nutrition Physical examination prior to discharge unremarkable Discharge diagnosis : s/p LHC; which showed patent stents, chronic total occlusion of distal first diagonal with excellent collaterals, normal LV systolic performance, EF 55-60%. --Acute Coronary syndrome; continue current cardiac medications --Persistent intermittent chest pain , resolved, on Ranexa --Coronary artery disease status post multiple stents, --Syncope; vasovagal , autonomic imbalance,w/u negative --Type 2 diabetes mellitus; -- hypertension; moderate control, --History of SLE; stable --Dyslipidemia; continue lipid-lowering medications I discussed her plan of care with the claim examiner Dr.Siva Hernandez, cleared for discharge Disposition: TO HOME OR SELFCARE Time spent for discharge: 32 min Core Measure Documentation - Palliative Care Palliative Care/ Comfort Measures: Not Applicable - Core Measures Any of the following diagnoses?: none Exam - Constitutional Vitals: Temp Pulse Resp BP Pulse Ox 99.1 F 70 16 120/77 97 06/05/17 09:19 06/05/17 10:47 06/05/17 09:19 06/05/17 10:47 06/05/17 09:19 General appearance: Present: no acute distress, well-nourished - EENT Eyes: Present: PERRL, EOM intact - Neck Neck: Present: supple, normal ROM - Respiratory Respiratory effort: normal Respiratory: negative: rales, rhonchi, wheezing - Cardiovascular Rhythm: regular Heart Sounds: Present: S1 & S2 - Extremities Extremities: no ischemia, No edema - Abdominal General gastrointestinal: Present: soft, non-tender, non-distended, normal bowel sounds - Integumentary Integumentary: Present: clear, warm - Musculoskeletal Musculoskeletal: strength equal bilaterally - Psychiatric Psychiatric: appropriate mood/affect, cooperative - Neurologic Neurologic: CNII-XII intact, moves all extremities Plan Activity: no restrictions Diet: diabetic, other (cardiac diet) Special Instructions: hold Metformin (resume on 06/06/2017) Additional Instructions: If you have chest pain or shortness of breath, contact M.D. or go to emergency room. Follow up [facility] office with Dr. Singh on 06/22/2017 @ 8:45AM. Follow up with: JULI SINGH MD [Staff Physician] - 7 Days PRIMARY CARE, [Primary Care Provider] - 7 Days Prescriptions: Docusate Sodium [Colace] 100 mg PO BID PRN #20 capsule PRN Reason: Constipation Famotidine [Pepcid] 20 mg PO BID #30 tablet Hypromellose [Isopto Tears 0.5%] 2 drops OU TID #1 bottle Ranolazine [Ranexa] 500 mg PO BID #60 tab.er.12h
[2017-06-05] MEDS: ISOPTO TEARS 0.5% OU SCH (14:49)
--- NOTE | 2017-06-10 14:14 | Query- General ---
Dear ___Bela Date:___06/10/17 [employer] Se[employer]/CDS:___Martin / Brian Phone#:__[phone] Exercise your independent professional judgment when responding to this query. Questions asked do not imply a particular answer is desired or expected. We greatly appreciate your clarification on this issue. Clinical Documentation States: 47 year old female was admitted on 06/02/17 The Progress note (Dr. Cramer 06/04/17) states " Assessment and plan: s/p C this AM which showed patent stents, chronic total occlusion of distal first diagonal with excellent collaterals, normal LV systolic performance, EF 55 -60%. --Acute Coronary syndrome; continue current cardiac medications " The H&P (Dr. Longo) states " Pt states that she experienced left arm pain and subsequently got dizzy and passed out. Assessment and Plan (2) Unconscious state : Plan to address problem: CT head, neuro checks, supportive care, " Clinical Findings Show (include reference to source document): Given the above clinical scenario can you please provide an appropriate diagnosis based on your knowledge of the patient: PHYSICIAN RESPONSE: Please clarify the etiology of the unconscious state: Autonomic instability ____ Present on Admission: [x ] Yes (Y) [ ] Clinically undeterminable (W) [ ]No(N) Please also document response in your Progress Notes and/or Discharge Summary and indicate if the condition was present on admission. MTDD
== END 2017-06-05 17:52 | disposition home or self-care (01) | DRG 286 ==
LOC: ED 19:09 → 4A 06-02 00:44
PROVIDERS: ADMIT Internal Medicine; ATTEND Internal Medicine
PROC: 4A023N7 Measurement of Cardiac Sampling and Pressure, Left Heart, Percutaneous Approach (ICD-10-PCS; principal; 2017-06-04)
PROC: B2151ZZ Fluoroscopy of Left Heart using Low Osmolar Contrast (ICD-10-PCS; 2017-06-04)
PROC: B2111ZZ Fluoroscopy of Multiple Coronary Arteries using Low Osmolar Contrast (ICD-10-PCS; 2017-06-04)
DX: I24.9 Acute ischemic heart disease, unspecified (principal); R40.20 Unspecified coma; M32.9 Systemic lupus erythematosus, unspecified; I25.10 Atherosclerotic heart disease of native coronary artery without angina pectoris; Z86.73 Personal history of transient ischemic attack (TIA), and cerebral infarction without residual deficits; E11.9 Type 2 diabetes mellitus without complications; I10 Essential (primary) hypertension; E78.00 Pure hypercholesterolemia, unspecified; Z79.4 Long term (current) use of insulin; I25.2 Old myocardial infarction; Z86.711 Personal history of pulmonary embolism; J45.909 Unspecified asthma, uncomplicated; Z98.51 Tubal ligation status; Z83.3 Family history of diabetes mellitus; Z82.49 Family history of ischemic heart disease and other diseases of the circulatory system; Z79.82 Long term (current) use of aspirin; G90.8 Other disorders of autonomic nervous system
CPT/HCPCS: 36415; 70450; 71010; 78452; 80048; 81001; 82962; 84484; 85025; 85379; 85610; 85730; 87086; 90686; 93005; 93010; 93017; 93458; 94640; 94760; 96374; 96375; A9270-GY; A9502; C1894; J0583; J1644; J1815; J1818; J2250; J2270; J2405; J2785; J3010; J7040; Q9967

== ENCOUNTER 2017-06-23 16:45 | Inpatient (IN) | payer MEDICAID ==
--- NOTE | 2017-06-23 17:23 | History and Physical Report ---
History of Present Illness Chief complaint: I keep passing out History of present illness: 47 YO Female with HTN, CVA, DM, PE Not on anticoagulation, Asthma, HLD, Lupus, GBS, CAD S/P Stent Placement admitted directly to hospitalist service at the request of Dr. Denise to evaluation of Syncope. Pt seen and evaluated upon arrival. Pt states that she has experienced multiple episodes of dizziness and subsequent loss of consciousness. Pt states that she was seen in her neurologists office, and was found to have orthostatic hypotension and was referred back to her provider education specialist who has planned to do further testing. Patient denies fever, chills, CP, Palpitations, NVD, productive cough, recent ill contacts, BRBPR, Hemoptysis, leg swelling, calf pain, trauma, loss of bowel/ bladder continence, vertigo, or seizures. Past History Past Medical History: diabetes, hypertension, hyperlipidemia, pulmonary embolism , stroke, other (sLE) Past Surgical History: , Other (Back surgery, Stent placement, ) Social history: single. denies: smoking, alcohol abuse, prescription drug abuse Family history: hypertension Medications and Allergies Allergies Allergy/AdvReac Type Severity Reaction Status Date / Time No Known Allergies Allergy Verified 11/10/16 13:47 Home Medications Medication Instructions Recorded Confirmed Last Taken Type Insulin Regular, Human [HumuLIN R] See Protocol SQ ACHS 03/27/16 06/02/17 History Ipratropium/Albuter (Nf) 2 puff IH QID #1 inha 03/28/16 06/02/17 11/11/16 Rx [Combivent Inhaler] ALBUTEROL Inhaler [ProAir HFA 2 puff IH QID PRN #1 inha 07/15/16 06/02/17 Rx Inhaler] Atorvastatin Calcium [Lipitor] 40 mg PO QHS #30 tab 07/15/16 06/02/17 11/10/16 Rx Budesonide [Pulmicort Respules] 1 mg IH BIDRT #14 nebu 07/15/16 06/02/17 Rx Aspirin EC [Aspirin Enteric Coated 325 mg PO DAILY 08/13/16 06/02/17 11/10/16 History TAB] Clopidogrel Bisulfate [Plavix] 75 mg PO DAILY 08/13/16 06/02/17 11/10/16 History Nitroglycerin [Nitrostat] 0.4 mg SL Q5M PRN 08/19/16 06/02/17 Unknown History Losartan [Cozaar] 25 mg PO QDAY 11/10/16 06/02/17 11/11/16 History Metoprolol [Lopressor TAB] 50 mg PO DAILY 11/10/16 06/02/17 11/11/16 History amLODIPine [Norvasc] 5 mg PO DAILY 11/10/16 06/02/17 11/11/16 History ALPRAZolam [Xanax TAB] 0.5 mg PO BID 06/02/17 06/02/17 Unknown History Baclofen [Lioresal] 2 tab PO BID 06/02/17 06/02/17 Unknown History Insulin Glargine [Lantus VIAL] 20 unit SUB-Q QHS 06/02/17 06/02/17 Unknown History Docusate Sodium [Colace] 100 mg PO BID PRN #20 capsule 06/04/17 Unknown Rx Famotidine [Pepcid] 20 mg PO BID #30 tablet 06/04/17 Unknown Rx Hypromellose [Isopto Tears 0.5%] 2 drops OU TID #1 bottle 06/04/17 Unknown Rx Metformin HCl [Glucophage] 1,000 mg PO BID #60 tablet 06/04/17 06/02/17 Rx Ranolazine [Ranexa] 500 mg PO BID #60 tab.er.12h 06/05/17 Unknown Rx Review of Systems Constitutional: other (syncope), no weight loss, no weight gain, no fever, no chills Ears, nose, mouth and throat: no ear pain, no ear discharge, no tinnitis, no decreased hearing, no nose pain Breasts: no change in shape, no swelling, no mass Cardiovascular: lightheadedness, no chest pain, no orthopnea, no palpitations Respiratory: no cough, no cough with sputum, no excessive sputum, no hemoptysis Gastrointestinal: no abdominal pain, no nausea, no vomiting, no diarrhea Genitourinary Female: no pelvic pain, no flank pain, no menorrhagia, no dysuria Rectal: no pain, no incontinence, no bleeding Musculoskeletal: no neck stiffness, no neck pain, no shooting arm pain, no arm numbness/tingling Integumentary: no rash, no pruritis, no redness, no sores, no wounds Neurological: syncope, no head injury, no transient paralysis, no paralysis, no weakness, no parathesias, no headaches, no migraines, no convulsions, no aphasia , no change in speech, no change in mentation, no confusion, no sensory deficit , no double vision, no loss of vision, no hearing difficulties Psychiatric: no anxiety, no memory loss, no change in sleep habits, no sleep disturbances, no insomnia, no hypersomnia Endocrine: no cold intolerance, no heat intolerance, no polyphagia, no excessive thirst, no polydipsia, no polyuria Hematologic/Lymphatic: no easy bruising, no easy bleeding Allergic/Immunologic: no urticaria, no allergic rhinitis, no wheezing Exam - Constitutional General appearance: Present: no acute distress, well-nourished - EENT Eyes: Present: PERRL ENT: hearing intact, clear oral mucosa - Neck Neck: Present: supple, normal ROM - Respiratory Respiratory effort: normal Respiratory: bilateral: CTA - Cardiovascular Heart Sounds: Present: S1 & S2. Absent: rub, click - Extremities Extremities: pulses symmetrical, No edema Peripheral Pulses: within normal limits - Abdominal General gastrointestinal: Present: soft, non-tender, non-distended, normal bowel sounds Female genitourinary: Present: normal - Integumentary Integumentary: Present: clear, warm, dry - Musculoskeletal Musculoskeletal: gait normal, strength equal bilaterally - Psychiatric Psychiatric: appropriate mood/affect, intact judgment & insight - Neurologic Neurologic: CNII-XII intact, moves all extremities Results - Labs CBC & Chem 7: 06/24/17 05:51 06/24/17 05:51 Assessment and Plan - Patient Problems (1) Unconscious state Current Visit: Yes Status: Acute Plan to address problem: No neurologic deficit at this time, pending tilt table testing as per cardiology team, neuro checks, remote telemetry monitoring. (2) CAD (coronary artery disease) Current Visit: No Status: Chronic Qualifiers: Coronary Disease-Associated Artery/Lesion type: tolowa dee-ni' artery Associated angina: without angina Plan to address problem: Antiplatelet therapy, continue current care, statin therapy (3) Diabetes mellitus Current Visit: No Status: Chronic Plan to address problem: ADA diet, insulin, accu check (4) Hyperlipidemia Current Visit: No Status: Chronic Plan to address problem: Statin therapy, low cholesterol diet (5) Hypertension Current Visit: No Status: Chronic Qualifiers: Hypertension type: essential hypertension Qualified Code(s): I10 - Essential (primary) hypertension Plan to address problem: Monitor bp q shift, continue medical management (6) Lupus Current Visit: No Status: Chronic Plan to address problem: Stable, no exacerbation at this time. (7) DVT prophylaxis Current Visit: No Status: Acute
[2017-06-23] MEDS ORDERED: COLACE PO PRN (21:55)
[2017-06-23] MEDS ORDERED: ZOFRAN IV PRN (21:57)
[2017-06-23] MEDS ORDERED: D50W (25GM) Syringe IV PRN ×2 (21:57→22:00)
[2017-06-23] MEDS ORDERED: MILK OF MAGNESIA PO PRN (21:57)
[2017-06-23] MEDS ORDERED: DULCOLAX PR PRN (21:57)
[2017-06-23] MEDS ORDERED: TYLENOL PO PRN (21:57)
[2017-06-23] MEDS: RANEXA ER PO SCH (23:31)
[2017-06-23] MEDS: LIORESAL PO SCH (23:31)
[2017-06-23] MEDS: PEPCID PO SCH (23:31)
[2017-06-23] MEDS: XANAX PO SCH (23:31)
[2017-06-23 23:35] LABS: Creatine Kinase 46 units/L (30-135); Creatine Kinase MB 1.1 ng/mL (0.0-4.0)
[2017-06-23] MEDS: NOVOLOG SUB-Q SCH (23:36)
[2017-06-23] MEDS: LEVEMIR SUB-Q SCH (23:41)
[2017-06-24] MEDS: DUONEB *Not for PRN Use IH SCH ×4 (01:45→21:24)
[2017-06-24 06:35] LABS: Basophils % (Auto) 0.6 % (0.0-1.8); Eosinophils % (Auto) 4.8 % (0.0-4.3); Hematocrit 39.7 % (30.3-42.9); Hemoglobin 13.9 gm/dl (10.1-14.3); Mean Corpuscular HGB Conc 35 % (30-34); Mean Corpuscular Hemoglobin 32 pg (28-32); Mean Corpuscular Volume 92 fl (79-97); Platelet Count 188 K/mm3 (140-440); Red Blood Count 4.32 M/mm3 (3.65-5.03); Red Cell Distribution Width 13.7 % (13.2-15.2); White Blood Count 5.9 K/mm3 (4.5-11.0)
[2017-06-24 06:50] LABS: Anion Gap 16 mmol/L; BUN/Creatinine Ratio 43; Blood Urea Nitrogen 17 mg/dL (7-17); Calcium 8.6 mg/dL (8.4-10.2); Carbon Dioxide 25 mmol/L (22-30); Chloride 101.4 mmol/L (98-107); Creatine Kinase MB 1.1 ng/mL (0.0-4.0); Glucose 149 mg/dL (65-100); Potassium 4.3 mmol/L (3.6-5.0); Sodium 138 mmol/L (137-145)
[2017-06-24 06:52] LABS: Creatine Kinase 45 units/L (30-135)
[2017-06-24] MEDS: NOVOLOG SUB-Q SCH ×4 (07:24→23:53)
[2017-06-24] MEDS: PULMICORT IH SCH ×2 (08:19→21:24)
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
[2017-06-24] MEDS ORDERED: NORVASC PO SCH (10:00)
[2017-06-24] MEDS: ECOTRIN PO SCH (10:06)
[2017-06-24] MEDS: PLAVIX PO SCH (10:06)
[2017-06-24] MEDS: RANEXA ER PO SCH ×2 (10:06→23:46)
[2017-06-24] MEDS: LIORESAL PO SCH ×2 (10:07→23:41)
[2017-06-24] MEDS: PEPCID PO SCH ×2 (10:07→23:42)
[2017-06-24] MEDS: XANAX PO SCH ×2 (10:07→23:43)
[2017-06-24] MEDS: LOPRESSOR PO SCH (10:09)
--- NOTE | 2017-06-24 14:16 | Consultation ---
History of Present Illness Consult date: 06/24/17 Requesting physician: HELIO JEWELL Reason for Consult: spells of light-headedness and blurring of vision in right eye History of present illness: This 47 year old female with history of CAD, diabetes, hypertension and hyperlipidemia, presents with history of light headedness, feeling as though she may pass out, for the past several months. The spells seem to occur when she is walking or standing, even sitting in the car. They do not always occur with a change in position. She is being evaluated for orthostatic hypotension and a review of her medications as well. The spells that she experiences are not vertigo, there is no nausea or vomiting. She had a syncopal spell one month ago. The patient has had multiple stents placed. She also reports having had a stroke after one of her cardiac procedures. Past History Past Medical History: CAD, diabetes, hypertension, hyperlipidemia, pulmonary embolism Past Surgical History: , Other (Back surgery, Stent placement, ) Social history: single. denies: smoking, alcohol abuse, prescription drug abuse Family history: CAD, hypertension, stroke (grandfather had MS and one cousin has MS.), other Medications and Allergies Allergies Allergy/AdvReac Type Severity Reaction Status Date / Time No Known Allergies Allergy Verified 11/10/16 13:47 Home Medications Medication Instructions Recorded Confirmed Last Taken Type Insulin Regular, Human [HumuLIN R] See Protocol SQ ACHS 03/27/16 06/02/17 History Ipratropium/Albuter (Nf) 2 puff IH QID #1 inha 03/28/16 06/02/17 11/11/16 Rx [Combivent Inhaler] ALBUTEROL Inhaler [ProAir HFA 2 puff IH QID PRN #1 inha 07/15/16 06/02/17 Rx Inhaler] Atorvastatin Calcium [Lipitor] 40 mg PO QHS #30 tab 07/15/16 06/02/17 11/10/16 Rx Budesonide [Pulmicort Respules] 1 mg IH BIDRT #14 nebu 07/15/16 06/02/17 Rx Aspirin EC [Aspirin Enteric Coated 325 mg PO DAILY 08/13/16 06/02/17 11/10/16 History TAB] Clopidogrel Bisulfate [Plavix] 75 mg PO DAILY 08/13/16 06/02/17 11/10/16 History Nitroglycerin [Nitrostat] 0.4 mg SL Q5M PRN 08/19/16 06/02/17 Unknown History Losartan [Cozaar] 25 mg PO QDAY 11/10/16 06/02/17 11/11/16 History Metoprolol [Lopressor TAB] 50 mg PO DAILY 11/10/16 06/02/17 11/11/16 History amLODIPine [Norvasc] 5 mg PO DAILY 11/10/16 06/02/17 11/11/16 History ALPRAZolam [Xanax TAB] 0.5 mg PO BID 06/02/17 06/02/17 Unknown History Baclofen [Lioresal] 2 tab PO BID 06/02/17 06/02/17 Unknown History Insulin Glargine [Lantus VIAL] 20 unit SUB-Q QHS 06/02/17 06/02/17 Unknown History Docusate Sodium [Colace] 100 mg PO BID PRN #20 capsule 06/04/17 Unknown Rx Famotidine [Pepcid] 20 mg PO BID #30 tablet 06/04/17 Unknown Rx Hypromellose [Isopto Tears 0.5%] 2 drops OU TID #1 bottle 06/04/17 Unknown Rx Metformin HCl [Glucophage] 1,000 mg PO BID #60 tablet 06/04/17 06/02/17 Rx Ranolazine [Ranexa] 500 mg PO BID #60 tab.er.12h 06/05/17 Unknown Rx Active Meds: Active Medications Acetaminophen (Tylenol) 650 mg PO Q4H PRN PRN Reason: Pain MILD(1-3)/Fever >100.5/[facility] Last Admin: 06/24/17 12:27 Dose: 650 mg Albuterol/Ipratropium (Duoneb *Not For Prn Use*) 1 ampul IH Q6HRT [facility] Last Admin: 06/24/17 08:18 Dose: 1 ampul Alprazolam (Xanax) 0.5 mg PO BID [facility] Last Admin: 06/24/17 10:07 Dose: 0.5 mg Amlodipine Besylate (Norvasc) 5 mg PO DAILY [facility] Last Admin: 06/24/17 10:10 Dose: Not Given Aspirin (Ecotrin) 325 mg PO DAILY [facility] Last Admin: 06/24/17 10:06 Dose: 325 mg Atorvastatin Calcium (Lipitor) 40 mg PO QHS [facility] Last Admin: 06/23/17 23:36 Dose: 40 mg Baclofen (Lioresal) 10 mg PO BID [facility] Last Admin: 06/24/17 10:07 Dose: 10 mg Bisacodyl (Dulcolax) 10 mg MA QDAY PRN PRN Reason: Constipation unrelieved by MOM Budesonide (Pulmicort) 1 mg IH BIDRT [facility] Last Admin: 06/24/17 08:19 Dose: 0.5 mg Clopidogrel Bisulfate (Plavix) 75 mg PO DAILY [facility] Last Admin: 06/24/17 10:06 Dose: 75 mg Dextrose (D50w (25gm) Syringe) 50 ml IV PRN PRN PRN Reason: Hypoglycemia Docusate Sodium (Colace) 100 mg PO BID PRN PRN Reason: Constipation Famotidine (Pepcid) 20 mg PO BID [facility] Last Admin: 06/24/17 10:07 Dose: 20 mg Insulin Aspart (Novolog) 0 units SUB-Q ACHS [facility] PRN Reason: Protocol Last Admin: 06/24/17 12:27 Dose: 3 units Insulin Detemir (Levemir) 20 units SUB-Q QHS [facility] Last Admin: 06/23/17 23:41 Dose: 20 units Magnesium Hydroxide (Milk Of Magnesia) 30 ml PO Q4H PRN PRN Reason: Constipation Metoprolol Tartrate (Lopressor) 50 mg PO DAILY [facility] Last Admin: 06/24/17 10:09 Dose: Not Given Ondansetron HCl (Zofran) 4 mg IV Q8H PRN PRN Reason: N/V unrelieved by Reglan Ranolazine (Ranexa Er) 500 mg PO BID [facility] Last Admin: 06/24/17 10:06 Dose: 500 mg Review of Systems Constitutional: no weight loss, no weight gain Eyes: right: blurred vision (comes and goes), bilateral: dry eye Ears, nose, mouth and throat: no tinnitis, no decreased hearing, no headache, no vertigo Cardiovascular: syncope, lightheadedness, no chest pain, no orthopnea, no palpitations, no rapid/irregular heart beat, no edema, no shortness of breath Respiratory: no cough, no shortness of breath, no congestion Gastrointestinal: no abdominal pain, no nausea, no vomiting, no diarrhea, no constipation Genitourinary Female: no dysuria, no urinary frequency, no urgency Musculoskeletal: low back pain, no neck stiffness, no neck pain, no arm numbness /tingling Neurological: syncope, headaches, no parathesias, no numbness, no tingling Psychiatric: anxiety Physical Examination - Vital Signs Vital Signs: Vital Signs Temp Pulse Resp BP Pulse Ox 98.2 F 75 16 100/78 94 06/23/17 19:07 06/23/17 19:07 06/23/17 19:07 06/23/17 19:07 06/23/17 19:07 - Constitutional General appearance: comfortable - EENT EENT: Present: PERRL, mucous membranes moist, hearing intact, vision intact - Respiratory Respiratory: Present: lungs clear, normal breath sounds, no respiratory distress - Cardiovascular Cardiovascular: Present: regular rate, normal S1, normal S2 Extremities: Present: no peripheral edema bilatateraly, no clubbing, cyanosis, no inflammation - Gastrointestinal Gastrointestinal: Present: soft, non-tender - Neurologic Cranial nerve examination: PERRL, EOMI, V1/V2/V3 grossly intact, face symmetric , tongue midline, intact shoulder shrug, intact gag reflex Speech examination: intact Sensorimotor examination: intact Detailed motor examination: grossly full strength in, full strength in all tommie Motor examination - right side: 5/5: biceps, triceps, wrist flexion, wrist extension, hip flexors, knee extensors, dorsiflexion, toe extension (EHL), plantarflexion Motor examination - left side: 5/5: biceps, triceps, wrist flexion, wrist extension, hip flexors, knee extensors, dorsiflexion, toe extension (EHL), plantarflexion Detailed sensory examination: intact, light touch, pain Reflex and gait examination: normal gait Reflexes: 1+: ankle (hypo-active reflexes), bicep, knee, tricep - Musculoskeletal Musculoskeletal: Present: no fluid collection, no pain, normal range of motion - Psychiatric Psychiatric: Present: mood/affect appropriate, cooperative Results - Laboratory Findings CBC and BMP: 06/24/17 05:51 06/24/17 05:51 Abnormal Lab Findings: Abnormal Labs 06/23/17 06/24/17 06/24/17 20:53 05:51 05:51 MCHC 35 H [place] % (Auto) 10.4 H Eos % (Auto) 4.8 H Creatinine 0.4 L Glucose 149 H POC Glucose 157 H 06/24/17 06/24/17 06:11 11:09 MCHC [place] % (Auto) Eos % (Auto) Creatinine Glucose POC Glucose 148 H 179 H Assessment and Plan This 47 year old female with diagnoses of hypertension, diabetes, CAD, and hyperlipidemia, presents with spells of light-headedness occurring every day, when she is up and about, walking, or sitting. When they occur she has a feeling as though she is going to pass out. One episode of syncope occurred last month. She has also been complaining of changes in the vision of her rt. eye, transient blurring. An opthalmologist could detect nothing wrong with her eyes. This patient is at risk for diabetic autonomic neuropathy, which may be contributing to her symptoms. She claims to have had 2 CVAs in the past. For this reason we will check her cerebral circulation. There is also a family history of MS. Plan - MRI scan with and without contrast. MRA
--- NOTE | 2017-06-24 15:15 | Progress Note ---
Assessment and Plan Assessment and plan: Autonomic disequilibrium CAD status post stent Hypertension, currently orthostatic hypotension Diabetes mellitus - Patient is going to have tilt test tomorrow - Patient was given IV fluid - Neurology consulted - Cardiology consulted - Appropriate medications continued DVT prophylaxis - On Lovenox Disposition - Possible discharge tomorrow after tilt test. History Interval history: Patient was seen and evaluated this morning, she is admitted for recurrent near syncopal episode Hospitalist Physical - Physical exam Narrative exam: Not in cardiopulmonary distress. The patient appeared well nourished and normally developed. Vital signs as documented. Head exam is unremarkable. No scleral icterus . Neck is without jugular venous distension, thyromegaly, or carotid bruits. Lungs are clear to auscultation. Cardiac exam reveals regular rate and Rhythm. First and second heart sounds normal. No murmurs, rubs or gallops. Abdominal exam reveals normal bowel sounds, no masses, no organomegaly and no aortic enlargement. Extremities are nonedematous and both femoral and pedal pulses are normal. RO[employer]: Alert and oriented 3. No focal weakness. - Constitutional Vitals: Temp Pulse Resp BP Pulse Ox 98.1 F 74 20 123/80 96 06/24/17 11:01 06/24/17 12:40 06/24/17 11:01 06/24/17 12:40 06/24/17 11:01 General appearance: Present: no acute distress, other (anxious, tearful) Results - Labs CBC & Chem 7: 06/24/17 05:51 06/24/17 05:51 Labs: Laboratory Last Values WBC 5.9 K/mm3 (4.5-11.0) 06/24/17 05:51 RBC 4.32 M/mm3 (3.65-5.03) 06/24/17 05:51 Hgb 13.9 gm/dl (10.1-14.3) 06/24/17 05:51 Hct 39.7 % (30.3-42.9) 06/24/17 05:51 MCV 92 fl (79-97) 06/24/17 05:51 MCH 32 pg (28-32) 06/24/17 05:51 MCHC 35 % (30-34) H 06/24/17 05:51 RDW 13.7 % (13.2-15.2) 06/24/17 05:51 Plt Count 188 K/mm3 (140-440) 06/24/17 05:51 Lymph % (Auto) 29.2 % (13.4-35.0) 06/24/17 05:51 [place] % (Auto) 10.4 % (0.0-7.3) H 06/24/17 05:51 Eos % (Auto) 4.8 % (0.0-4.3) H 06/24/17 05:51 Baso % (Auto) 0.6 % (0.0-1.8) 06/24/17 05:51 Lymph # 1.7 K/mm3 (1.2-5.4) 06/24/17 05:51 [place] # 0.6 K/mm3 (0.0-0.8) 06/24/17 05:51 Eos # 0.3 K/mm3 (0.0-0.4) 06/24/17 05:51 Baso # 0.0 K/mm3 (0.0-0.1) 06/24/17 05:51 Seg Neutrophils % 55.0 % (40.0-70.0) 06/24/17 05:51 Seg Neutrophils # 3.3 K/mm3 (1.8-7.7) 06/24/17 05:51 D-Dimer 162.88 ng/mlDDU (0-234) 06/23/17 22:52 Sodium 138 mmol/L (137-145) 06/24/17 05:51 Potassium 4.3 mmol/L (3.6-5.0) 06/24/17 05:51 Chloride 101.4 mmol/L (98-107) 06/24/17 05:51 Carbon Dioxide 25 mmol/L (22-30) 06/24/17 05:51 Anion Gap 16 mmol/L 06/24/17 05:51 BUN 17 mg/dL (7-17) 06/24/17 05:51 Creatinine 0.4 mg/dL (0.7-1.2) L 06/24/17 05:51 Estimated GFR > 60 ml/min 06/24/17 05:51 BUN/Creatinine Ratio 43 % 06/24/17 05:51 Glucose 149 mg/dL (65-100) H 06/24/17 05:51 POC Glucose 179 (70-105) H 06/24/17 11:09 Calcium 8.6 mg/dL (8.4-10.2) 06/24/17 05:51 Total Creatine Kinase 45 units/L (30-135) 06/24/17 05:51 CK-MB (CK-2) 1.1 ng/mL (0.0-4.0) 06/24/17 05:51 CK-MB (CK-2) Rel Index 2.4 (0-4) 06/24/17 05:51 Troponin T < 0.010 ng/mL (0.00-0.029) 06/24/17 05:51
[2017-06-24] MEDS ORDERED: PROVENTIL IH PRN (17:26)
[2017-06-24] MEDS ORDERED: LOVENOX SUB-Q SCH (22:00)
[2017-06-24] MEDS: LEVEMIR SUB-Q SCH (23:53)
[2017-06-25 07:28] LABS: Basophils % (Auto) 0.5 % (0.0-1.8); Eosinophils % (Auto) 3.1 % (0.0-4.3); Hemoglobin 14.1 gm/dl (10.1-14.3); Mean Corpuscular HGB Conc 35 % (30-34); Mean Corpuscular Hemoglobin 32 pg (28-32); Mean Corpuscular Volume 91 fl (79-97); Platelet Count 188 K/mm3 (140-440); Red Cell Distribution Width 13.9 % (13.2-15.2); White Blood Count 6.4 K/mm3 (4.5-11.0)
[2017-06-25 07:46] LABS: Anion Gap 19 mmol/L; BUN/Creatinine Ratio 28; Blood Urea Nitrogen 14 mg/dL (7-17); Calcium 8.9 mg/dL (8.4-10.2); Carbon Dioxide 25 mmol/L (22-30); Chloride 102.8 mmol/L (98-107); Glucose 145 mg/dL (65-100); Potassium 4.6 mmol/L (3.6-5.0); Sodium 142 mmol/L (137-145)
[2017-06-25] MEDS ORDERED: NACL 0.9% 1000 ML 1,000 ML IV SCH (08:00)
[2017-06-25] MEDS: NOVOLOG SUB-Q SCH ×3 (08:13→17:41)
[2017-06-25] MEDS ORDERED: NITROSTAT SL ONE (09:26)
[2017-06-25] MEDS: PULMICORT IH SCH ×2 (10:23→19:58)
[2017-06-25] MEDS: DUONEB *Not for PRN Use IH SCH ×2 (10:24→19:58)
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
--- NOTE | 2017-06-25 10:44 | Cardiac Catherization Report ---
TILT TABLE TEST CLINICAL INFORMATION: This is being performed on a 47-year-old white female with known history of coronary artery disease and coronary intervention in the past. The patient is having episodes of syncopal episodes and also feeling of lightheadedness. She has syncopal episodes few times in the past. While waiting at doctor's office the other day she felt lightheaded as if she is going to pass out but she did not have any syncopal episodes. Because of her episode, she was evaluated and admitted to the hospital. The patient had workup done in the past including Holter monitor and she was scheduled as an outpatient to have a tilt table test. Hence, the tilt table test is being performed while in the hospital. DESCRIPTION OF PROCEDURE: The patient was brought to the catheterization laboratory in a fasting condition. Subsequently, she was prepared on Tilt table. Her resting blood pressure was 122/80 while lying down with heart rate of 71. The patient was changed to upright position and her blood pressure and heart rate were monitored constantly. While in the upright position, the patient has been stable with blood pressure around 108-119 systolic pressure, heart rate has been 67-76 beats per minute. Subsequently, the patient received 0.4 mg of sublingual nitroglycerin in upright position. Two minutes later, her blood pressure was 97/72 and the lowest blood pressure was 83/53 with heart rate at this time being 93 beats per minute. The patient was alert, awake with some feeling of lightheadedness at that time when the blood pressure is 83/53; however, heart rate has been in the normal range of 87 beats per minute. The patient did not have any loss of consciousness, no other symptoms of chest pain or shortness of breath. After nitroglycerin, she was in upright position for 10 minutes and test was terminated. FINAL IMPRESSION: Mildly abnormal tilt table test with symptoms of lightheadedness with blood pressure being in the low range of 83/53, heart rate being normal at 87 beats per minute. The patient's initial blood pressure while in upright position was 102/80. The patient's heart rate has been stable. The patient at this time has very mild drop in blood pressure from baseline with well maintained heart rate in 70-100 beats per minute, rhythm being sinus. At this time, significance of this is not clear. The patient did have complaint of lightheadedness after the nitroglycerin, but the patient has been alert, awake, able to communicate throughout the procedure. JOB# [id number] JERMAINE/YOANNA KLINE
[2017-06-25] MEDS: LOPRESSOR PO SCH (11:53)
--- NOTE | 2017-06-25 14:31 | Magnetic Resonance Report ---
MRA HEAD WITHOUT CONTRAST HISTORY: Syncope, vascular disease. Japa-yp-[id number] imaging with MIP reformations of the moapa of Cm is submitted. The arteries appear widely patent and free of hemodynamically significant stenosis, aneurysm or dissection. origin of the right SECURITY SPECIALIST is noted. IMPRESSION: Normal variant MRA head.
--- NOTE | 2017-06-25 14:33 | Magnetic Resonance Report ---
MRI BRAIN WITH/WITHOUT CONTRAST: History: Syncope, previous strokes, transient vision loss Technique: Multiple T1 and T2 weighted images were obtained in multiple planes. Axial diffusion and gradient imaging was performed. Post contrast T1 images in two planes were obtained following IV gadolinium. Findings: Chronic infarct in the left occipital lobe measures 3.3 x 2.3 cm. Chronic infarct in the right parietal lobe measures 2.3 x 3.2 cm. The remainder of the brain parenchyma is within normal limits. The ac-white interface is well defined. No diffusion restriction, hemorrhage, mass effect or extra-axial fluid collection. Ventricular size is normal and symmetric. The basal cisterns are clear. The brainstem and cerebellar hemispheres are within normal limits. The fourth ventricle is midline. The paranasal sinuses and mastoid air cells are well aerated. Normal flow voids are identified in the appropriate vessels at the ekuk of Cm. No abnormal enhancement is identified following IV gadolinium. Impression: Chronic infarcts in the left occipital lobe and right parietal lobe as described. Otherwise, unremarkable exam.
[2017-06-25] MEDS: PLAVIX PO SCH (14:36)
[2017-06-25] MEDS: RANEXA ER PO SCH (14:37)
[2017-06-25] MEDS: XANAX PO SCH (14:37)
[2017-06-25] MEDS: ECOTRIN PO SCH (14:37)
[2017-06-25] MEDS: PEPCID PO SCH (14:37)
[2017-06-25] MEDS: LIORESAL PO SCH (14:37)
--- NOTE | 2017-06-25 16:12 | Discharge Summary ---
Providers - Providers Date of Admission: 06/23/17 17:46 Attending physician: HELIO JEWELL MD 06/23/17 17:06 Consult to Physician [CONS] Routine Consulting Provider: JULI SINGH Reason For Exam: CARDIOMYOPATHY Place consult to:: dr. singh Notified:: answering service Phone number called:: [phone] Was contact made?: Yes If yes, spoke with:: zohaib Time called:: 19:19 06/24/17 12:03 Consult to Physician [CONS] Routine Consulting Provider: LEONELA QUIROZ Reason For Exam: intermittent blurring of vision, family hx of MS Place consult to:: Neurology Notified:: yes Phone number called:: Time called:: 12:21 Comment:: lt message with answering service including pager number Primary care physician: BOBBY JORGENSEN Hospitalization Reason for admission: Autonomic dysequilibrium Condition: Stable Pertinent studies: MRI head significant for chronic infarcts which was present at her previous work [employer]. No acute changes. TILT table test: mildly positive. Hospital course: 47 YO Female with HTN, CVA, DM, PE Not on anticoagulation, Asthma, HLD, Lupus, GBS, CAD S/P Stent Placement admitted directly to hospitalist service at the request of Dr. Jorgensen to evaluation of Syncope. Pt seen and evaluated upon arrival. Pt states that she has experienced multiple episodes of dizziness and subsequent loss of consciousness. Pt states that she was seen in her neurologists office, and was found to have orthostatic hypotension and was referred back to her braille and talking books clerk who has planned to do further testing. Patient denies fever, chills, CP, Palpitations, NVD, productive cough, recent ill contacts, BRBPR, Hemoptysis, leg swelling, calf pain, trauma, loss of bowel/ bladder continence, vertigo, or seizures. Patient was admitted to the floor and her BP medications were adjusted. Neurology and cardiology was consulted were consulted and workups were negative for cause of dizziness and recommmended to discharge with adjusting BP meds and continue her followup with neurology and cardiology as an O/P. Patient's medications were reviewed and adjusted at the time of discharge. Patient was advised to take her time when she changed positions. Patient was hemodynamically stable at the time of discharge. Disposition: - TO HOME OR SELFCARE Time spent for discharge: 31 minutes - Discharge Diagnoses (1) Syncope due to autonomic failure Status: Acute (2) CAD (coronary artery disease) Status: Chronic Qualifiers: Coronary Disease-Associated Artery/Lesion type: absentee-shawnee artery Associated angina: without angina (3) Diabetes mellitus Status: Chronic (4) Hyperlipidemia Status: Chronic (5) Hypertension Status: Chronic Qualifiers: Hypertension type: essential hypertension Qualified Code(s): I10 - Essential (primary) hypertension Core Measure Documentation - Palliative Care Palliative Care/ Comfort Measures: Not Applicable - Core Measures Any of the following diagnoses?: none Exam - Physical Exam Narrative exam: Not in cardiopulmonary distress. The patient appeared well nourished and normally developed. Vital signs as documented. Head exam is unremarkable. No scleral icterus . Neck is without jugular venous distension, thyromegaly, or carotid bruits. Lungs are clear to auscultation. Cardiac exam reveals regular rate and Rhythm. First and second heart sounds normal. No murmurs, rubs or gallops. Abdominal exam reveals normal bowel sounds, no masses, no organomegaly and no aortic enlargement. Extremities are nonedematous and both femoral and pedal pulses are normal. PRODUCT MARKETING DIRECTOR: Alert and oriented 3. No focal weakness. - Constitutional Vitals: Temp Pulse Resp BP Pulse Ox 98.5 F 68 20 109/72 95 06/25/17 11:16 06/25/17 11:16 06/25/17 11:16 06/25/17 11:16 06/25/17 11:16 Plan Activity: no restrictions Weight Bearing Status: Full Weight Bearing Diet: low cholesterol, low salt, diabetic Follow up with: BOBBY JORGENSEN MD [Primary Care Provider] - 7 Days JULI SNIGH MD [Staff Physician] - 14 Days Prescriptions: Famotidine [Pepcid] 20 mg PO BID #60 tablet
--- NOTE | 2017-06-25 16:24 | Progress Note ---
Assessment and Plan Patient will continue follow-up with cardiology. Subjective Principal diagnosis: near syncope Interval history: This 47 year old female spells of light-headedness and syncope, has completed tilt-table testing which was mildly positive. Her anti-hypertensive medications are also being adjusted. She is OK to discharge from my standpoint. Objective - Exam Narrative Exam: Neurological exam is nonfocal. - Vital Sign Vital Signs - 12hr 06/25/17 06/25/17 06/25/17 04:38 07:38 11:16 Temperature 97.8 F 98.5 F Pulse Rate 66 68 68 Respiratory 16 14 20 Rate Blood Pressure 103/73 109/72 Blood Pressure 101/67 [Left] O2 Sat by Pulse 97 95 Oximetry - Laboratory Findings CBC and BMP: 06/25/17 06:42 06/25/17 06:42 Abnormal Lab Findings: Abnormal Labs 06/23/17 06/24/17 06/24/17 20:53 05:51 05:51 MCHC 35 H Moffat % (Auto) 10.4 H Eos % (Auto) 4.8 H Creatinine 0.4 L Glucose 149 H POC Glucose 157 H 06/24/17 06/24/17 06/24/17 06:11 11:09 15:51 MCHC Moffat % (Auto) Eos % (Auto) Creatinine Glucose POC Glucose 148 H 179 H 165 H 06/24/17 06/25/17 06/25/17 20:52 06:03 06:42 MCHC 35 H Moffat % (Auto) 8.2 H Eos % (Auto) Creatinine Glucose POC Glucose 131 H 117 H 06/25/17 06/25/17 06:42 13:20 MCHC Moffat % (Auto) Eos % (Auto) Creatinine 0.5 L Glucose 145 H POC Glucose 140 H
[2017-06-25 17:07] VITALS: BP 111/72
[2017-06-26] MEDS ORDERED: TOPROL XL PO SCH (10:00)
[2017-06-26] MEDS ORDERED: IMDUR PO SCH (10:00)
== END 2017-06-25 19:30 | disposition home or self-care (01) | DRG 73 ==
LOC: 3A 16:45 → UNDOADMIN 16:45 → 3A 17:46
PROVIDERS: ADMIT Internal Medicine; ATTEND Internal Medicine
PROC: 4A02XFZ Measurement of Cardiac Rhythm, External Approach (ICD-10-PCS; principal; 2017-06-25)
PROC: 4A03XB1 Measurement of Arterial Pressure, Peripheral, External Approach (ICD-10-PCS; 2017-06-25)
DX: G90.8 Other disorders of autonomic nervous system (principal); R40.20 Unspecified coma; I25.10 Atherosclerotic heart disease of native coronary artery without angina pectoris; E78.5 Hyperlipidemia, unspecified; E11.8 Type 2 diabetes mellitus with unspecified complications; I10 Essential (primary) hypertension; M32.9 Systemic lupus erythematosus, unspecified; G89.29 Other chronic pain; M54.9 Dorsalgia, unspecified; I95.1 Orthostatic hypotension; Z86.73 Personal history of transient ischemic attack (TIA), and cerebral infarction without residual deficits; Z86.711 Personal history of pulmonary embolism; Z95.5 Presence of coronary angioplasty implant and graft; Z82.49 Family history of ischemic heart disease and other diseases of the circulatory system; Z79.4 Long term (current) use of insulin; Z79.899 Other long term (current) drug therapy; Z82.3 Family history of stroke
CPT/HCPCS: 36415; 70546; 70553; 80048; 82550; 82553; 82962; 84484; 85025; 85379; 93660; 94640; 94760; A9270-GY; J1650; J1815; J1818; J7030

== ENCOUNTER 2017-11-04 09:02 | Day surgery (SDC) | payer MEDICAID ==
[~2017-11-04 09:02] MED LIST changes: +LACTATED RINGERS 1,000 ML IV SCH; +NACL 0.9% IR ONE; -PEPCID PO NR; +XYLOCAINE 1% 20 mL INFILTRATI ONE
[2017-11-04] MEDS ORDERED: NACL BACTERIOSTATIC INFILTRATI ONE (09:40)
--- NOTE | 2017-11-04 09:54 | Anesthesia Day of Surgery ---
Anesthesia Day of Surgery - Day of Surgery Patient Examined: Yes Patient H&P Reviewed: Yes Patient is NPO: Yes
[2017-11-04] MEDS ORDERED: ZOFRAN IV PRN ×2 (09:55→12:48)
--- NOTE | 2017-11-04 09:55 | Anesthesia Consultation ---
Anesthesia Consult and Med Hx Date of service: 11/04/17 - Airway Anesthetic Teeth Evaluation: Poor ROM Head & Neck: Adequate Mental/Hyoid Distance: Adequate Mallampati Class: Class III Intubation Access Assessment: Possibly Difficult - Pulmonary Exam CTA: Yes - Cardiac Exam Cardiac Exam: RRR - Pre-Operative Health Status ASA Pre-Surgery Classification: ASA3 Proposed Anesthetic Plan: General (Denies GERD, OK for LMA) - Pulmonary Hx Smoking: Yes (past hx) Hx Asthma: Yes - Cardiovascular System Hx Hypertension: Yes (x 6 yrs) Hx Coronary Artery Disease: Yes Hx Heart Attack/AMI: Yes (2009) Hx Angina: Yes - Central Nervous System CVA: Yes (x2, last possibly 08/2016, first 2013) Hx Back Pain: Yes Hx Psychiatric Problems: No - Endocrine Hx Liver Disease: Yes (Liver mass (2011), WATCHING) Hx Insulin Dependent Diabetes: Yes Hx Thyroid Disease: No - Other Systems Hx Cancer: No
--- NOTE | 2017-11-04 10:13 | Short Stay Summary ---
Short Stay Documentation Date of service: 11/04/17 Narrative H&P: 47y/o female with a history of recurrent bartholin abscess. The patient recently had incision and drainage of the abscess with immediate recurrence. She reports pain and bleeding from site. - History Principal diagnosis: Bartholin abscess Past Medical History: diabetes, hypertension, hyperlipidemia, other (asthma, lupus, pulmonary embolism, CVA, anxiety) Past Surgical History: , Other (tubal ligation; coronary stent; lower back surgery) Social history: single - Allergies and Medications Current Medications: Allergies No Known Allergies Allergy (Verified 11/03/17 13:40) Home Medications Medication Instructions Recorded Confirmed Last Taken Type Insulin Regular, Human [HumuLIN R] 4 - 9 unit SQ ACHS 03/27/16 06/24/17 History Atorvastatin Calcium [Lipitor] 40 mg PO QHS #30 tab 07/15/16 06/24/17 11/10/16 Rx Clopidogrel Bisulfate [Plavix] 75 mg PO DAILY 08/13/16 06/24/17 11/10/16 History Metoprolol [Lopressor TAB] 50 mg PO DAILY 11/10/16 06/24/17 11/11/16 History ALPRAZolam [Xanax TAB] 0.5 mg PO BID 06/02/17 06/24/17 06/22/17 History Baclofen [Lioresal] 2 tab PO BID 06/02/17 06/24/17 Unknown History Insulin Glargine [Lantus VIAL] 20 unit SUB-Q QHS 06/02/17 06/24/17 06/23/17 History Metformin HCl [Glucophage] 1,000 mg PO BID #60 tablet 06/04/17 06/24/17 Rx ISOSORBIDE MONOnitrate [Imdur ER] 30 mg PO QAM 06/24/17 06/24/17 Unknown History Sertraline [Zoloft] 50 mg PO DAILY 06/24/17 06/24/17 Unknown History Famotidine [Pepcid] 20 mg PO BID #60 tablet 06/25/17 Unknown Rx Active Medications Hydromorphone HCl (Dilaudid) 0.5 mg IV Q10MIN PRN PRN Reason: Pain , Severe (7-10) Stop: 11/04/17 12:00 Lactated Ringer's (Lactated Ringers) 1,000 mls @ 100 mls/hr IV DIRECT ALDAIR Midazolam HCl (Versed) 2 mg IV PREOP NR Stop: 11/04/17 23:59 Ondansetron HCl (Zofran) 4 mg IV ONCE PRN PRN Reason: Nausea And Vomiting Stop: 11/04/17 10:30 - Physical exam General appearance: no acute distress Integumentary: no rash HEENT: Atraumatic Lungs: Clear to auscultation Breasts: deferred Heart: Regular rate Gastrointestinal: normal - Brief post op/procedure progress note Date of procedure: 11/04/17 Pre-op diagnosis: Bartholin gland cyst Post-op diagnosis: same Procedure: Excision of bilateral Bartholin gland cyst Anesthesia: LOLY Surgeon: SHAWN BONILLA Estimated blood loss: other (400ml) Pathology: list (bartholin gland cyst) Specimen disposition: to lab Condition: stable - Hospital course Hospital course: The patient was admitted the day of surgery and underwent excision of an intact bilaterally clamped fifth. Please see operative note in detail the surgery. Her postoperative course was uneventful. - Disposition Condition at discharge: Good Disposition: DC-01 TO HOME OR SELFCARE Short Stay Discharge Plan Activity: other (pelvic rest for 4 weeks) Diet: diabetic Wound: remove dressing, other (remove the vaginal packing tonight) Additional Instructions: Please limit activity No sex for intercourse for 4 weeks Scheduled follow-up with Dr. Valentine in 2 weeks Prescriptions: Cephalexin [Keflex] 500 mg PO Q12HR #20 cap Ibuprofen [Motrin] 800 mg PO Q8HR PRN #60 tablet PRN Reason: Pain oxyCODONE /ACETAMINOPHEN [Percocet 5/325] 1 tab PO Q6HR PRN #30 tablet PRN Reason: Pain
[2017-11-04] MEDS ORDERED: SUBLIMAZE ONE (10:44)
[2017-11-04] MEDS ORDERED: XYLOCAINE MPF 2% ONE (10:44)
[2017-11-04] MEDS ORDERED: DIPRIVAN 10 MG/ML IV ONE (10:45)
[2017-11-04] MEDS ORDERED: ANCEF/STERILE WATER 2 GM/20 ML 2 GM/20 ML SYRINGE IV NR (11:00)
[2017-11-04] MEDS ORDERED: XYLOCAINE 1% 20 mL ONE (11:16)
[2017-11-04] MEDS ORDERED: ZOFRAN ONE (11:20)
[2017-11-04] MEDS ORDERED: DECADRON ONE (11:21)
[2017-11-04] MEDS ORDERED: TORADOL ONE (11:21)
--- NOTE | 2017-11-04 11:42 | Post Anesthesia Evaluation ---
- Post Anesthesia Evaluation Patient Participated: Yes Airway Patent: Yes Stable Respiratory Function: Yes Nausea/Vomiting: No Temp > 96.8F: Yes Pain Manageable: Yes Adequeate Hydration: Yes Anesthesia Complications: No
[2017-11-04] MEDS ORDERED: NEO SYNEPHRINE/NS Syringe(OR USE) IV ONE (11:51)
[2017-11-04] MEDS ORDERED: ePHEDrine SULFATE ONE (11:59)
--- NOTE | 2017-11-04 12:42 | Operative Report ---
Operative Report Operative Report: Date of procedure: 11/04/2017 Pre-operative diagnosis: Bartholin's gland cyst Post-operative diagnosis: Same as above Procedure name(s): Excision of Bartholin gland cyst Surgeon: Mirella Malone M.D. Printing Gray Cloth Tender: None Estimated blood loss: 400 mL Anesthesia: Gen. endotracheal anesthesia Findings 4 cm intact Bartholin gland cyst Indication: 47-year-old with a history of recurrent left Bartholin's cyst. The patient elected to have surgical management of her symptoms. Procedure The patient was taken to the operating room and given general tracheal anesthesia without complication. The patient was prepped and draped in a normal sterile fashion and placed in high lithotomy position. The vaginal mucosa over the cyst was injected with quarter percent Marcaine. A linear incision was made in the mucosa with the scalpel. The edges of the vaginal mucosa were grasped with Ered clamps. The metzenbaum scissors were used for meticulous excision of the gland from the underlying connective tissue. Bleeding appeared to be brisk in this highly vascular area. Eventually the cyst was removed intact. 3-0 suture was placed in the connective tissue of the labia to maintain hemostasis. Multiple [id number] stitches had to be placed in order to improve hemostasis. Surgicel was placed in the surgical site. Once the defect in the left labial area was reapproximated, the incision was closed in a running fashion with 3-0 Vicryl. Maintaining adequate hemostasis was difficult. A packing was applied to the area along with the isabel -pad. The patient was then successfully extubated and taken to the recover from. All sponge laps and needle counts correct 2. Specimen sent to pathology was Bartholin gland cyst
[2017-11-04] MEDS ORDERED: DILAUDID IV PRN (12:48)
[2017-11-04] MEDS ORDERED: DEMEROL IV PRN (12:48)
[2017-11-04] MEDS: DILAUDID IV PRN ×2 (12:51→13:12)
[2017-11-04] MEDS ORDERED: PERCOCET 5/325 PO PRN (12:57)
[2017-11-04 14:08] VITALS: BP 88/61
== END 2017-11-04 14:56 | disposition home or self-care (01) ==
LOC: OR 09:02
PROVIDERS: ATTEND Obstetrics & Gynecology
DX: N75.0 Cyst of Bartholin's gland (principal); I10 Essential (primary) hypertension; I25.10 Atherosclerotic heart disease of native coronary artery without angina pectoris; I25.2 Old myocardial infarction; E11.9 Type 2 diabetes mellitus without complications; E78.5 Hyperlipidemia, unspecified; J45.909 Unspecified asthma, uncomplicated; M32.9 Systemic lupus erythematosus, unspecified; F41.9 Anxiety disorder, unspecified; Z86.73 Personal history of transient ischemic attack (TIA), and cerebral infarction without residual deficits; Z86.711 Personal history of pulmonary embolism; Z79.01 Long term (current) use of anticoagulants; Z79.4 Long term (current) use of insulin; Z79.899 Other long term (current) drug therapy; Z98.890 Other specified postprocedural states; Z98.51 Tubal ligation status; Z95.5 Presence of coronary angioplasty implant and graft; Z87.891 Personal history of nicotine dependence
CPT/HCPCS: 56740; 81025; 82962; 88304; J0690; J1100; J1170; J1885; J2250; J2370; J2405; J2704; J3010; J7120

== ENCOUNTER 2018-01-25 00:02 | Emergency (ER) | payer MEDICAID ==
[2018-01-25 00:08] VITALS: BP 141/83
== END 2018-01-25 01:10 | disposition left against medical advice (07) ==
LOC: ED 00:02
DX: R73.9 Hyperglycemia, unspecified (principal); Z53.21 Procedure and treatment not carried out due to patient leaving prior to being seen by health care provider
CPT/HCPCS: 82962

== ENCOUNTER 2018-03-06 12:33 | Emergency (ER) | payer MEDICAID ==
[2018-03-06 14:22] LABS: Bacteria,Urine 1+ /HPF (Negative); Bilirubin,Urine NEG (Negative); Blood,Urine LG (Negative); Color,Urine Yellow (Yellow); Protein,Urine <15 mg/dL mg/dL (Negative); Urobilinogen,Urine < 2.0 mg/dL (<2.0)
[2018-03-06 14:29] LABS: HCG Qualitative,Urine Negative (Negative)
--- NOTE | 2018-03-06 14:43 | Emergency Department Report ---
Blank Doc - Documentation Documentation: Patient is a 48-year-old female past medical history of diabetes on insulin, who is coming in with blood-tinged urine. Patient states she's had no dysuria but does feel a sensation associated to apply some extra pressure to urinate today. Patient denies any pain. Patient states the last time she urinated she urinated and a clear container and sees white material floating in the urine. Patient's focused physical exam has a soft abdomen no tenderness. Urinalysis showed hematuria but no evidence of infection. Because the patient is a diabetic ultrasound of the patient's kidneys and renal function will be done.
[2018-03-06 15:19] LABS: Basophils # (Auto) 0.1 K/mm3 (0.0-0.1); Basophils % (Auto) 0.6 % (0.0-1.8); Eosinophils # (Auto) 0.3 K/mm3 (0.0-0.4); Hematocrit 40.5 % (30.3-42.9); Hemoglobin 13.9 gm/dl (10.1-14.3); Lymphocytes # (Auto) 2.2 K/mm3 (1.2-5.4); Lymphocytes % (Auto) 25.6 % (13.4-35.0); Mean Corpuscular HGB Conc 34 % (30-34); Mean Corpuscular Hemoglobin 30 pg (28-32); Mean Corpuscular Volume 87 fl (79-97); Monocytes # (Auto) 0.5 K/mm3 (0.0-0.8); Platelet Count 272 K/mm3 (140-440); Red Blood Count 4.63 M/mm3 (3.65-5.03)
[2018-03-06 15:46] LABS: BUN/Creatinine Ratio 38; Blood Urea Nitrogen 19 mg/dL (7-17); Calcium 9.9 mg/dL (8.4-10.2); Hemolysis Index 9
--- NOTE | 2018-03-06 17:01 | Ultrasound Report ---
FINAL REPORT EXAM: US RENAL BILAT HISTORY: hematuria COMPARISON: CT of the abdomen pelvis from July 2016. TECHNIQUE: Several real-time grayscale and color Doppler images were obtained. FINDINGS: Right kidney measures 13.0 x 5.6 x 7.2 centimeters. Cortex measures 1.2 centimeters. Left kidney measures 14.0 x 5.1 x 7.0 centimeters. Cortex measures 1.3 centimeters. Left renal cyst measuring 2.7 x 2.7 x 2.6 centimeters. Gross vascular flow to the kidneys. Visualized portions of the urinary bladder grossly unremarkable. IMPRESSION: Benign left renal cyst. No hydronephrosis bilaterally.
--- NOTE | 2018-03-06 18:09 | Emergency Department Report ---
ED Female HPI - General Chief complaint: Urogenital-Female Stated complaint: URINARY PROBLEMS Time Seen by Provider: 03/06/18 14:16 Source: patient, family Mode of arrival: Ambulatory Limitations: No Limitations - History of Present Illness Initial comments: Patient is a 48-year-old female past medical history of diabetes on insulin, who is coming in with blood-tinged urine. Patient states she's had no dysuria but does feel a sensation associated to apply some extra pressure to urinate today. Patient denies any pain. Patient states the last time she urinated she urinated and a clear container and sees white material floating in the urine. Patient's focused physical exam has a soft abdomen no tenderness. Denies any back pain or abdominal pain. Denies any fevers chills. Patient reports that she started insulin pump 2 days ago and she read that insulin pump because urinary tract infection and she caused her coin machine service repairer and he told her to come to the emergency room to check to make sure that her kidneys were fine. Patient says she just had a full checkup [address] Denise and she still waiting for the blood work but they did not call to say anything was wrong. She is a history of multiple heart attacks with stents and 27 years diabetes. MD Complaint: other (hematuria) -: This morning Severity scale (0 -10): 0 Are you Now?: No Associated Symptoms: hematuria. denies: vaginal discharge, vaginal bleeding, abdominal pain, nausea/vomiting, fever/chills, headaches, loss of appetite, dysuria, rash, seizure, shortness of breath, syncope, weakness - Related Data Sexually active: Yes Home Medications Medication Instructions Recorded Confirmed Last Taken ALBUTEROL Inhaler (OR & NICU) 2 puff IH QID PRN 11/04/17 11/04/17 11/04/17 07:30 [Proair] ALPRAZolam [Xanax TAB] 1 mg PO TID PRN 11/04/17 11/04/17 11/03/17 23:00 Albuterol Sulfate [Albuterol 0.63% 0.63 mg IH TID PRN 11/04/17 11/04/17 09/09/17 NEBS] Aspirin [Children's Aspirin] 81 mg PO QDAY 11/04/17 11/04/17 11/02/17 AtorvaSTATin [Lipitor] 40 mg PO QHS 11/04/17 11/04/17 11/03/17 20:00 Clopidogrel Bisulfate [Clopidogrel] 75 mg PO QDAY 11/04/17 11/04/17 11/02/17 Insulin Glargine,Hum.rec.anlog 20 unit SQ QHS 11/04/17 11/04/17 11/03/17 23:00 [Lantus] 20 UNITS Insulin Regular, Human [HumuLIN R] 4 - 9 unit SQ ACHS PRN MDD 9 11/04/1711/03/17 19:00 4 UNITS Metformin HCl 1,000 mg PO BID 11/04/17 11/04/17 11/03/17 23:00 Metoprolol Xl [Metoprolol 50 mg PO QDAY 11/04/17 11/04/17 11/04/17 07:30 SUCCINATE ER TAB] Montelukast [Singulair] 10 mg PO QDAY 11/04/17 11/04/17 11/03/17 07:30 Nitroglycerin [Nitrostat] 0.4 mg SL Q5M PRN 11/04/17 11/04/17 Unknown Sertraline [Zoloft] 100 mg PO QHS 11/04/17 11/04/17 11/03/17 23:00 Previous Rx's Medication Instructions Recorded Last Taken Type Ibuprofen [Motrin] 800 mg PO Q8HR PRN #60 tablet 11/04/17 Unknown Rx cephALEXin [Keflex] 500 mg PO Q12HR #20 cap 11/04/17 Unknown Rx oxyCODONE /ACETAMINOPHEN [Percocet 1 tab PO Q6HR PRN #30 tablet 11/04/17 Unknown Rx 5/325] cephALEXin [Keflex] 500 mg PO Q12H 10 Days #20 cap 03/06/18 Unknown Rx Allergies Allergy/AdvReac Type Severity Reaction Status Date / Time No Known Allergies Allergy Verified 03/06/18 12:41 ED Review of Systems ROS: Stated complaint: URINARY PROBLEMS Other details as noted in HPI Constitutional: denies: chills, fever Eyes: denies: eye pain, eye discharge ENT: denies: ear pain, throat pain, congestion Respiratory: denies: cough, shortness of breath, SOB with exertion, SOB at rest , stridor, wheezing Cardiovascular: denies: chest pain, palpitations, edema, syncope Gastrointestinal: denies: abdominal pain, nausea, vomiting, diarrhea, constipation, hematemesis, melena, hematochezia Genitourinary: hematuria. denies: urgency, dysuria, frequency, discharge Musculoskeletal: denies: back pain, joint swelling, arthralgia Skin: denies: rash, lesions Neurological: denies: headache, weakness ED Past Medical Hx - Past Medical History Previous Medical History?: Yes Hx Hypertension: Yes (x 6 yrs) Hx CVA: Yes (TIA, cva x2 last in aug 2016) Hx Heart Attack/AMI: Yes (2009) Hx Diabetes: Yes (x 26 yrs) Hx Pulmonary Embolism: Yes (2010) Hx Liver Disease: Yes (Liver mass (2011), WATCHING) Hx Kidney Stones: Yes Hx Asthma: Yes Additional medical history: HIGH CHOLESTEROL , gullian escalante syndrome, lupus - Surgical History Past Surgical History?: Yes Hx Coronary Stent: Yes (x 6, last was 08/2016) Additional Surgical History: RECONSTRUCTIVE BACK SUGERY X3, C SECTION, TUBAL LIGATION - Family History Family history: hypertension - Social History Smoking Status: Never Smoker Substance Use Type: None - Medications Home Medications: Home Medications Medication Instructions Recorded Confirmed Last Taken Type ALBUTEROL Inhaler (OR & NICU) 2 puff IH QID PRN 11/04/17 11/04/17 11/04/17 07: 30 History [Proair] ALPRAZolam [Xanax TAB] 1 mg PO TID PRN 11/04/17 11/04/17 11/03/17 23:00 History Albuterol Sulfate [Albuterol 0.63% 0.63 mg IH TID PRN 11/04/17 11/04/17 History NEBS] Aspirin [Children's Aspirin] 81 mg PO QDAY 11/04/17 11/04/17 11/02/17 History AtorvaSTATin [Lipitor] 40 mg PO QHS 11/04/17 11/04/17 11/03/17 20:00 History Clopidogrel Bisulfate [Clopidogrel] 75 mg PO QDAY 11/04/17 11/04/17 11/02/17 History Ibuprofen [Motrin] 800 mg PO Q8HR PRN #60 tablet 11/04/17 Unknown Rx Insulin Glargine,Hum.rec.anlog 20 unit SQ QHS 11/04/17 11/04/17 11/03/17 23:00 History [Lantus] 20 UNITS Insulin Regular, Human [HumuLIN R] 4 - 9 unit SQ ACHS PRN MDD 9 11/04/1711/03/17 19:00 History 4 UNITS Metformin HCl 1,000 mg PO BID 11/04/17 11/04/17 11/03/17 23:00 History Metoprolol Xl [Metoprolol 50 mg PO QDAY 11/04/17 11/04/17 11/04/17 07:30 History SUCCINATE ER TAB] Montelukast [Singulair] 10 mg PO QDAY 11/04/17 11/04/17 11/03/17 07:30 History Nitroglycerin [Nitrostat] 0.4 mg SL Q5M PRN 11/04/17 11/04/17 Unknown History Sertraline [Zoloft] 100 mg PO QHS 11/04/17 11/04/17 11/03/17 23:00 History cephALEXin [Keflex] 500 mg PO Q12HR #20 cap 11/04/17 Unknown Rx oxyCODONE /ACETAMINOPHEN [Percocet 1 tab PO Q6HR PRN #30 tablet 11/04/17 Unknown Rx 5/325] cephALEXin [Keflex] 500 mg PO Q12H 10 Days #20 cap 03/06/18 Unknown Rx ED Physical Exam - General Limitations: No Limitations General appearance: alert, in no apparent distress - Head Head exam: Present: atraumatic, normocephalic, normal inspection - Eye Eye exam: Present: normal appearance, PERRL, EOMI Pupils: Present: normal accommodation - ENT ENT exam: Present: normal exam, normal orophraynx, mucous membranes moist, TM's normal bilaterally, normal external ear exam - Neck Neck exam: Present: normal inspection, full ROM. Absent: tenderness, lymphadenopathy - Respiratory Respiratory exam: Present: normal lung sounds bilaterally. Absent: respiratory distress, chest wall tenderness - Cardiovascular Cardiovascular Exam: Present: regular rate, normal rhythm, normal heart sounds. Absent: systolic murmur, diastolic murmur - GI/Abdominal GI/Abdominal exam: Present: soft, normal bowel sounds. Absent: distended, tenderness, rigid - Extremities Exam Extremities exam: Present: normal inspection, full ROM, normal capillary refill , other (No cce. + 2 pulses in all extremities, no neurovascular compromise). Absent: tenderness, pedal edema, joint swelling, calf tenderness - Back Exam Back exam: Present: normal inspection, full ROM, other (ambulates without any difficulties). Absent: tenderness, CVA tenderness (R), CVA tenderness (L), muscle spasm, paraspinal tenderness, vertebral tenderness, rash noted - Neurological Exam Neurological exam: Present: alert, oriented X3, normal gait, reflexes normal. Absent: motor sensory deficit - Psychiatric Psychiatric exam: Present: normal affect, normal mood - Skin Skin exam: Present: warm, dry, intact, normal color. Absent: rash ED Course Vital Signs 03/06/18 12:41 Temperature 98.5 F Pulse Rate 87 Respiratory 16 Rate Blood Pressure 128/75 O2 Sat by Pulse 96 Oximetry - Reevaluation(s) Reevaluation #1: 03/06/18 18:13 Patient is stable. Lab work explained to her along with ultrasound and she voiced understanding. She has large amount of blood in her urine with 1+ bacteria and will be treated with Keflex ED Medical Decision Making - Lab Data Result diagrams: 03/06/18 15:00 03/06/18 15:00 Lab Results 03/06/18 03/06/18 03/06/18 Range/Units 12:42 13:15 15:00 WBC 8.6 (4.5-11.0) K/mm3 RBC 4.63 (3.65-5.03) M/mm3 Hgb 13.9 (10.1-14.3) gm/dl Hct 40.5 (30.3-42.9) % MCV 87 (79-97) fl MCH 30 (28-32) pg MCHC 34 (30-34) % RDW 14.0 (13.2-15.2) % Plt Count 272 (140-440) K/mm3 Lymph % (Auto) 25.6 (13.4-35.0) % [place] % (Auto) 6.0 (0.0-7.3) % Eos % (Auto) 3.0 (0.0-4.3) % Baso % (Auto) 0.6 (0.0-1.8) % Lymph # 2.2 (1.2-5.4) K/mm3 [place] # 0.5 (0.0-0.8) K/mm3 Eos # 0.3 (0.0-0.4) K/mm3 Baso # 0.1 (0.0-0.1) K/mm3 Seg Neutrophils % 64.8 (40.0-70.0) % Seg Neutrophils # 5.6 (1.8-7.7) K/mm3 Sodium (137-145) mmol/L Potassium (3.6-5.0) mmol/L Chloride (98-107) mmol/L Carbon Dioxide (22-30) mmol/L Anion Gap mmol/L BUN (7-17) mg/dL Creatinine (0.7-1.2) mg/dL Estimated GFR ml/min BUN/Creatinine Ratio % Glucose (65-100) mg/dL POC Glucose 105 (70-105) Calcium (8.4-10.2) mg/dL Urine Color Yellow (Yellow) Urine Turbidity Slightly-cloudy (Clear) Urine pH 6.0 (5.0-7.0) Ur Specific [place] 1.004 (1.003-1.030) Urine Protein <15 mg/dl (Negative) mg/dL Urine Glucose (UA) Neg (Negative) mg/dL Urine Ketones Neg (Negative) mg/dL Urine Blood Lg (Negative) Urine Nitrite Neg (Negative) Urine Bilirubin Neg (Negative) Urine Urobilinogen < 2.0 (<2.0) mg/dL Ur Leukocyte Esterase Neg (Negative) Urine WBC (Auto) 1.0 (0.0-6.0) /HPF Urine RBC (Auto) 7.0 (0.0-6.0) /HPF U Epithel Cells (Auto) < 1.0 (0-13.0) /HPF Urine Bacteria (Auto) 1+ (Negative) /HPF Urine HCG, Qual Negative (Negative) 03/06/18 Range/Units 15:00 WBC (4.5-11.0) K/mm3 RBC (3.65-5.03) M/mm3 Hgb (10.1-14.3) gm/dl Hct (30.3-42.9) % MCV (79-97) fl MCH (28-32) pg MCHC (30-34) % RDW (13.2-15.2) % Plt Count (140-440) K/mm3 Lymph % (Auto) (13.4-35.0) % [place] % (Auto) (0.0-7.3) % Eos % (Auto) (0.0-4.3) % Baso % (Auto) (0.0-1.8) % Lymph # (1.2-5.4) K/mm3 [place] # (0.0-0.8) K/mm3 Eos # (0.0-0.4) K/mm3 Baso # (0.0-0.1) K/mm3 Seg Neutrophils % (40.0-70.0) % Seg Neutrophils # (1.8-7.7) K/mm3 Sodium 137 (137-145) mmol/L Potassium 4.2 (3.6-5.0) mmol/L Chloride 96.1 L (98-107) mmol/L Carbon Dioxide 26 (22-30) mmol/L Anion Gap 19 mmol/L BUN 19 H (7-17) mg/dL Creatinine 0.5 L (0.7-1.2) mg/dL Estimated GFR > 60 ml/min BUN/Creatinine Ratio 38 % Glucose 119 H (65-100) mg/dL POC Glucose (70-105) Calcium 9.9 (8.4-10.2) mg/dL Urine Color (Yellow) Urine Turbidity (Clear) Urine pH (5.0-7.0) Ur Specific [place] (1.003-1.030) Urine Protein (Negative) mg/dL Urine Glucose (UA) (Negative) mg/dL Urine Ketones (Negative) mg/dL Urine Blood (Negative) Urine Nitrite (Negative) Urine Bilirubin (Negative) Urine Urobilinogen (<2.0) mg/dL Ur Leukocyte Esterase (Negative) Urine WBC (Auto) (0.0-6.0) /HPF Urine RBC (Auto) (0.0-6.0) /HPF U Epithel Cells (Auto) (0-13.0) /HPF Urine Bacteria (Auto) (Negative) /HPF Urine HCG, Qual (Negative) Urine culture sent - Radiology Data Radiology results: report reviewed Patient had ultrasound renal bilateral. Dictated by radiologist and reports reviewed by myself and Dr. Gallego. Please see details below. Patient: GHAZALA BEATTY MR#: [id number] : 1970 Acct:[id number] Age/Sex: 48 / F ADM Date: 03/06/18 Loc: ED Attending Dr: Ordering Physician: GILA GALLEGO MD Date of Service: 03/06/18 Procedure(s): US renal BILAT Accession Number(s): [id number] cc: GILA GALLEGO MD FINAL REPORT EXAM: US RENAL BILAT HISTORY: hematuria COMPARISON: CT of the abdomen pelvis from July 2016. TECHNIQUE: Several real-time grayscale and color Doppler images were obtained. FINDINGS: Right kidney measures 13.0 x 5.6 x 7.2 centimeters. Cortex measures 1.2 centimeters. Left kidney measures 14.0 x 5.1 x 7.0 centimeters. Cortex measures 1.3 centimeters. Left renal cyst measuring 2.7 x 2.7 x 2.6 centimeters. Gross vascular flow to the kidneys. Visualized portions of the urinary bladder grossly unremarkable. IMPRESSION: Benign left renal cyst. No hydronephrosis bilaterally. Transcribed By: LMA Dictated By: SIGRID MCDONOUGH MD Electronically Authenticated By: SIGRID MCDONOUGH MD Signed Date/Time: 03/06/181658 DD/ 58 TD/TT: 03/06/181658 - Medical Decision Making This is a 48 [id number] female here because she said she had blood in her urine with some white stranding and she collected some urine in a container and brought it to emergency room for inspection. She says she spoke to her coin machine service repairer is Dr. Lujan and he told her to come here to get tested. Pt is a diabetic and she just started on insulin pump 2 days ago. She also has several other comorbidities. She is not having any pain. Patient was screened by Dr. Vance Gallego orders [facility]. Dr. Gallego evaluated patient. I saw and examined patient and physical exam is normal. she showed me a container with urine that looks like some red blood cells and white stranding that is unidentified. She had urinalysis done and it shows cloudy urine, large amount of blood and 1+ bacteria. Urine culture sent. Patient will be started on Keflex to treat hemorrhagic UTI. Patient had CBC done which is stable and her BMP shows normal kidney function with no other abdomen allergies. She had bilateral renal ultrasound done which shows Benign left renal cyst. No hydronephrosis bilaterally. Bladder is grossly normal and good blood flow to the kidneys. test is negative Laboratory results and ultrasound results explained to patient and she voiced understanding. I discussed the patient her diagnosis and treatment plan and that she needs to follow up with her coin machine service repairer, primary care physician and also I will give her referral to [facility] to evaluate blood in her urine. She voiced understanding. I discussed the patient she needs to follow up in 3 days. Patient is stable, vital signs are stable she is afebrile and she is discharged home in stable condition with family member with prescription for Keflex. Critical care attestation.: If time is entered above; I have spent that time in minutes in the direct care of this critically ill patient, excluding procedure time. ED Disposition Clinical Impression: Acute hemorrhagic cystitis Hematuria Qualifiers: Hematuria type: unspecified type Qualified Code(s): R31.9 - Hematuria, unspecified Disposition: - TO HOME OR SELFCARE Is pt being admited?: No Does the pt Need Aspirin: No Condition: Stable Instructions: Urinary Tract Infection in Women (ED), Acute Hematuria (ED) Additional Instructions: Please follow up with [facility] as discussed. Call and Thursday to schedule an appointment as tomorr is a holiday Take for hemorrhagic cystitis Increase the fluid intake to flush her kidneys and bladder out Follow up with Dr. Lujan your coin machine service repairer, call tomorrow to schedule an appointment Follow up with your primary care physician Dr. Denise, call tomorrow to schedule an appointment If you develop increased bleeding and, abdominal or back pain, fever and or chills, nausea no vomiting, please return to emergency room [id number] Referrals: PRIMARY CAREMD [Primary Care Provider] - 3-5 Days Forms: Work/School Release Form(ED), Accompanied Note
[2018-03-06 18:36] VITALS: BP 122/72
== END 2018-03-06 18:35 | disposition home or self-care (01) ==
LOC: ED 12:33
DX: N30.01 Acute cystitis with hematuria (principal); I10 Essential (primary) hypertension; I25.2 Old myocardial infarction; E11.9 Type 2 diabetes mellitus without complications; J45.909 Unspecified asthma, uncomplicated; Z86.73 Personal history of transient ischemic attack (TIA), and cerebral infarction without residual deficits; Z86.711 Personal history of pulmonary embolism; E78.00 Pure hypercholesterolemia, unspecified
CPT/HCPCS: 36415; 76770; 80048; 81001; 81025; 82962; 85025; 87086

== ENCOUNTER 2018-04-02 08:28 | Outpatient (CLI) | payer MEDICAID ==
[2018-04-02 08:57] LABS: Blood Urea Nitrogen 23 mg/dL (7-17)
--- NOTE | 2018-04-02 10:24 | Cat Scan Report ---
CT ABDOMEN PELVIS WITH AND WITHOUT CONTRAST: HISTORY: Hematuria. COMPARISON: none. TECHNIQUE: Helical CT in 1.25mm intervals before and after IV contrast. Sagittal and coronal reconstructions. FINDINGS: Lung bases: Normal. Liver: 5.3 cm cavernous hemangioma in the right hepatic lobe and 1.9 cm hemangioma in the left hepatic lobe are unchanged. Biliary system: Normal. Pancreas: Normal. Spleen: Normal. Kidneys/ureters/bladder: 2.8 cm cyst at the superior pole of the left kidney is stable. Punctate calyceal stone is noted in the superior left kidney on image 61. A punctate calyceal stone is noted in the inferior left kidney on image 83. No right nephrolithiasis or ureteral stones are identified. The bladder is unremarkable, cystitis findings have resolved since the previous exam. Adrenal glands: Normal. Aorta: Normal. Intestines: Within normal limits given no oral contrast was administered. Appendix: Normal. Pelvic viscera: Normal. Ascites: None. Adenopathy: None. Musculoskeletal: Intact. Surgical changes in the lumbar spine and degenerative changes are noted. IMPRESSION: Left nephrolithiasis as described above. Left renal cyst, stable. Cavernous hemangiomas of the liver, unchanged.
== END 2018-04-02 08:29 | disposition home or self-care (01) ==
LOC: CT 08:28
PROVIDERS: ATTEND Urology
DX: N20.0 Calculus of kidney (principal); N28.1 Cyst of kidney, acquired; D18.00 Hemangioma unspecified site; I10 Essential (primary) hypertension; E11.9 Type 2 diabetes mellitus without complications; E78.5 Hyperlipidemia, unspecified; I25.10 Atherosclerotic heart disease of native coronary artery without angina pectoris; Z95.5 Presence of coronary angioplasty implant and graft
CPT/HCPCS: 36415; 74178; 82565; 84520; Q9967